=== PATIENT | female | born 1990 | race Caucasian/White ===

== ENCOUNTER → 2016-06-02 | Outpatient (CLI) | payer BC | END | disposition home or self-care (01) | LOC: MW.CHOBGYN 11:53 | PROVIDERS: ATTEND Nurse Practitioner Women's Health | DX: L29.8 Other pruritus (principal); N64.4 Mastodynia | CPT/HCPCS: 36415; 81025; 84146; 84443; 87480; 87510; 87660 ==

== ENCOUNTER → 2016-06-11 | Outpatient (CLI) | payer BC ==
--- NOTE | 2016-06-11 16:37 | US ---
EXAMINATION: Left breast HISTORY: Lump COMPARISON: None TECHNIQUE: Grayscale and color Doppler images obtained of the left breast. FINDINGS: There is no abnormal mass or fluid collection identified. No skin thickening or abnormal c olor Doppler flow. Normal-appearing glandular and adipose tissue noted. IMPRESSION: No sonographic abnormalities identified within the left breast. Please follow-up palpabl e abnormalities clinically.
== END ==
LOC: MW.US 12:30
PROVIDERS: ATTEND Nurse Practitioner Women's Health
DX: N63 Unspecified lump in breast (principal)
CPT/HCPCS: 76641-LT; 76641-LT-26

== ENCOUNTER 2016-08-31 22:09 | Observation (INO) | payer BC ==
[2016-08-31] MEDS ORDERED: Sodium Chloride 0.9% 1,000 ML IV ONE ×2 (22:44→23:42)
[2016-08-31] MEDS ORDERED: Ondansetron 4 MG/2 ML SDV IVPUSH ONE (22:44)
[2016-08-31] MEDS ORDERED: Sodium Chloride 0.9% 10 ML Syringe FLUSH PRN (22:44)
[2016-08-31] MEDS ORDERED: Famotidine 20 MG/2 ML SDV IVPUSH ONE (22:44)
[2016-08-31] MEDS ORDERED: Sodium Chloride 0.9% 2.5 ML Syringe FLUSH PRN (22:44)
[2016-08-31] MEDS ORDERED: Insulin Regular, Human 100 Units/ML 10 ML Vial SUBCUT ONE ×2 (22:44→23:48)
--- NOTE | 2016-08-31 22:47 | EDM.PDOC ---
ED HPI GENERAL MEDICAL PROBLEM - General Chief Complaint: Diabetic Complaint Stated Complaint: HIGH BLOOD SUGAR/SHORT OF BREATH Time Seen by Provider: 08/31/16 22:35 - History of Present Illness INITIAL COMMENTS - FREE TEXT/NARRATIVE: HISTORY AND PHYSICAL: History of present illness: The patient is a 25-year-old female who was had insulin-requiring diabetes since her last child and states that her blood sugar has been very altered and unable to be controlled since end of February this past year. She states that she was on Humalog and was very well controlled and when they switched her to Novolog and she had more problems with blood sugar management. She states her hemoglobin A1c is "12" and her provider is in [place] but she has moved here and has seen Dr. Pineda in our clinic back in January but has not had good follow- up. She says that she has been treating herself with a sliding scale of both the Novolog and the Lantus that she is on and she has no regular doses ; she has had one admission for blood sugar in the 600s and she is currently feeling similarly with lightheadedness headache nausea heartburn but no chest pain and no discrete abdominal pain. She has not passed out or blacked out but feels generalized weakness. She had one episode of vomiting earlier today but is tolerated fluids since that time. She has polyuria and polydipsia but no dysuria or urgency and no flank pain. The patient tells me that the best blood sugar that she has had in the last 6 months is around 300 and it normally runs 300-500 Review of systems: As per history of present illness and below otherwise all systems reviewed and negative. Past medical history: As per history of present illness and as reviewed below otherwise noncontributory. Surgical history: As per history of present illness and as reviewed below otherwise noncontributory. Social history: No reported history of drug or alcohol abuse. Family history: As per history of present illness and as reviewed below otherwise noncontributory. Physical exam: Gen.: Well-developed well-nourished mildly overweight female who is nontoxic and there is no smell of ketones on her breath that I can appreciate. She is nontoxic appearing speaks clearly and easily and is in no overt distress HEENT: Atraumatic, normocephalic, pupils reactive, negative for conjunctival pallor or scleral icterus, mucous membranes tacky, throat clear, neck supple, nontender, trachea midline. Lungs: Clear to auscultation, breath sounds equal bilaterally, chest nontender. Heart: S1S2, regular, negative for clicks, rubs, or JVD. Abdomen: Soft, nondistended, nontender. Negative for masses or hepatosplenomegaly. Negative for costovertebral tenderness. Pelvis: Stable nontender. Genitourinary: Deferred. Rectal: Deferred. Extremities: Atraumatic, negative for cords or calf pain. Neurovascular unremarkable. Neuro: Awake, alert, oriented. Cranial nerves II through XII unremarkable. Cerebellum unremarkable. Motor and sensory unremarkable throughout. Exam nonfocal. Diagnostics: Accu-Chek: CBC CMP serum ketones UA UCG ABG hemoglobin A1c EKG Therapeutics: IV fluid and insulin Zofran Pepcid 2342: Case was discussed with our hospitalist Dr. Carrasco and he accepts the patient for observation admission and would like to manage the patient with regular insulin doses and sliding scale and not an insulin drip at this time. I discussed all testing results with the patient and at bedside and the observation admission and need to get better control of her glucose as well as diabetic teaching and a more standardized insulin dosing regimen. She states understanding and is agreeable . We will give a second liter of IV fluids repeat the Accu-Chek and dose insulin again as indicated. ABG was drawn and is still pending at the time of this phone conversation with the hospitalist. I will follow-up with that result Impression: Hyperglycemia with history of insulin requiring diabetes and poor outpatient medical management Definitive disposition and diagnosis as appropriate pending reevaluation and review of above. 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 ED EXAM GENERAL NO PERIP PULSE - Physical Exam Exam: See Below (See dictation) Course - Vital Signs Last Recorded V/S: Last Vital Signs Temp 36.4 C 08/31/16 22:15 Pulse 83 08/31/16 22:15 Resp 18 08/31/16 22:15 BP 133/80 08/31/16 22:15 Pulse Ox 96 08/31/16 22:15 - Orders/Labs/Meds Orders: Active Orders 24 hr Category Date Time Status Patient Status [ADT] Stat ADT 08/31/16 23:42 Ordered Blood Glucose Check, Bedside [RC] ONETIME Care 08/31/16 23:42 Ordered EKG Documentation Completion [RC] STAT Care 08/31/16 22:47 Active BLOOD GAS ARTERIAL [BG] Stat Lab 08/31/16 22:43 Ordered Sodium Chloride 0.9% [Normal Saline] 1,000 ml Med 08/31/16 22:44 Active IV STAT Sodium Chloride 0.9% [Normal Saline] 1,000 ml Med 08/31/16 23:42 Ordered IV STAT Sodium Chloride 0.9% [Saline Flush] Med 08/31/16 22:44 Active 10 ml FLUSH ASDIRECTED PRN Sodium Chloride 0.9% [Saline Flush] Med 08/31/16 22:44 Active 2.5 ml FLUSH ASDIRECTED PRN Saline Lock Insert [OM.PC] Stat Oth 08/31/16 22:43 Ordered Medication Orders Sodium Chloride (Normal Saline) 1,000 mls @ 999 mls/hr IV STAT ONE Stop: 08/31/16 23:44 Last Admin: 08/31/16 22:53 Dose: 999 mls/hr Sodium Chloride (Normal Saline) 1,000 mls @ 999 mls/hr IV STAT ONE Stop: 09/01/16 00:42 Sodium Chloride (Saline Flush) 10 ml FLUSH ASDIRECTED PRN PRN Reason: Keep Vein Open Last Admin: 08/31/16 22:55 Dose: 10 ml Sodium Chloride (Saline Flush) 2.5 ml FLUSH ASDIRECTED PRN PRN Reason: Keep Vein Open Last Admin: 08/31/16 22:55 Dose: 2.5 ml Labs: Laboratory Tests 08/31/16 08/31/16 08/31/16 Range/Units 22:40 22:40 22:40 WBC 9.19 (4.0-11.0) K/uL RBC 5.25 (4.30-5.90) M/uL Hgb 15.6 (12.0-16.0) g/dL Hct 43.9 (36.0-46.0) % MCV 83.6 (80.0-98.0) fL MCH 29.7 (27.0-32.0) pg MCHC 35.5 (31.0-37.0) g/dL RDW Std Deviation 38.6 (28.0-62.0) fl RDW Coeff of Escobar 13 (11.0-15.0) % Plt Count 307 (150-400) K/uL MPV 9.90 (7.40-12.00) fL Neut % (Auto) 58.4 (48.0-80.0) % Lymph % (Auto) 35.6 (16.0-40.0) % Frederick % (Auto) 4.2 (0.0-15.0) % Eos % (Auto) 1.4 (0.0-7.0) % Baso % (Auto) 0.4 (0.0-1.5) % Neut # (Auto) 5.4 (1.4-5.7) K/uL Lymph # (Auto) 3.3 H (0.6-2.4) K/uL Frederick # (Auto) 0.4 (0.0-0.8) K/uL Eos # (Auto) 0.1 (0.0-0.7) K/uL Baso # (Auto) 0.0 (0.0-0.1) K/uL Nucleated RBC % 0.0 /100WBC Nucleated RBCs # 0 K/uL Sodium 128 L (136-146) mmol/L Potassium 4.2 (3.5-5.1) mmol/L Chloride 102 (98-110) mmol/L Carbon Dioxide 17 L (21-31) mmol/L BUN 18 (6.0-23.0) mg/dL Creatinine 1.1 (0.6-1.5) mg/dL Est Cr Clr Drug Dosing 81.70 mL/min Estimated GFR (MDRD) > 60.0 ml/min Glucose 603 H* (60-110) mg/dL Hemoglobin A1c (0.0-6.0) % Calcium 8.7 L (8.8-10.8) mg/dL Total Bilirubin 0.3 (0.1-1.5) mg/dL AST 14 (5-40) IU/L ALT 24 (8-54) IU/L Alkaline Phosphatase 137 (40-150) Total Protein 7.8 (6.0-8.0) g/dL Albumin 4.4 (3.5-5.0) g/dL Globulin 3.4 (2.0-3.5) g/dL Albumin/Globulin Ratio 1.3 (1.3-2.8) Urine Color Urine Appearance Urine pH (5.0-8.0) Ur Specific Egan (1.001-1.035) Urine Protein (NEGATIVE) mg/dL Urine Glucose (UA) (NEGATIVE) mg/dL Urine Ketones (NEGATIVE) mg/dL Urine Occult Blood (NEGATIVE) Urine Nitrite (NEGATIVE) Urine Bilirubin (NEGATIVE) Urine Urobilinogen (<2.0) EU/dL Ur Leukocyte Esterase (NEGATIVE) Urine RBC (0-2/HPF) Urine WBC (0-5/HPF) Ur Epithelial Cells (NONE-FEW) Urine Bacteria (NEGATIVE) Urine HCG, Qual (NEGATIVE) Ketones NEGATIVE (NEG) 08/31/16 08/31/16 08/31/16 Range/Units 22:40 22:40 22:40 WBC (4.0-11.0) K/uL RBC (4.30-5.90) M/uL Hgb (12.0-16.0) g/dL Hct (36.0-46.0) % MCV (80.0-98.0) fL MCH (27.0-32.0) pg MCHC (31.0-37.0) g/dL RDW Std Deviation (28.0-62.0) fl RDW Coeff of Escobar (11.0-15.0) % Plt Count (150-400) K/uL MPV (7.40-12.00) fL Neut % (Auto) (48.0-80.0) % Lymph % (Auto) (16.0-40.0) % Frederick % (Auto) (0.0-15.0) % Eos % (Auto) (0.0-7.0) % Baso % (Auto) (0.0-1.5) % Neut # (Auto) (1.4-5.7) K/uL Lymph # (Auto) (0.6-2.4) K/uL Frederick # (Auto) (0.0-0.8) K/uL Eos # (Auto) (0.0-0.7) K/uL Baso # (Auto) (0.0-0.1) K/uL Nucleated RBC % /100WBC Nucleated RBCs # K/uL Sodium (136-146) mmol/L Potassium (3.5-5.1) mmol/L Chloride (98-110) mmol/L Carbon Dioxide (21-31) mmol/L BUN (6.0-23.0) mg/dL Creatinine (0.6-1.5) mg/dL Est Cr Clr Drug Dosing mL/min Estimated GFR (MDRD) ml/min Glucose (60-110) mg/dL Hemoglobin A1c 12.0 H (0.0-6.0) % Calcium (8.8-10.8) mg/dL Total Bilirubin (0.1-1.5) mg/dL AST (5-40) IU/L ALT (8-54) IU/L Alkaline Phosphatase (40-150) Total Protein (6.0-8.0) g/dL Albumin (3.5-5.0) g/dL Globulin (2.0-3.5) g/dL Albumin/Globulin Ratio (1.3-2.8) Urine Color YELLOW Urine Appearance CLEAR Urine pH 5.0 (5.0-8.0) Ur Specific Egan 1.010 (1.001-1.035) Urine Protein NEGATIVE (NEGATIVE) mg/dL Urine Glucose (UA) >=1000 (NEGATIVE) mg/dL Urine Ketones 15 H (NEGATIVE) mg/dL Urine Occult Blood SMALL H (NEGATIVE) Urine Nitrite NEGATIVE (NEGATIVE) Urine Bilirubin NEGATIVE (NEGATIVE) Urine Urobilinogen 0.2 (<2.0) EU/dL Ur Leukocyte Esterase SMALL (NEGATIVE) Urine RBC 0-2 (0-2/HPF) Urine WBC 4-6 (0-5/HPF) Ur Epithelial Cells RARE (NONE-FEW) Urine Bacteria RARE (NEGATIVE) Urine HCG, Qual NEGATIVE (NEGATIVE) Ketones (NEG) Meds: Medications Generic Name Dose Route Start Last Admin Trade Name Eligioq PRN Reason Stop Dose Admin Sodium Chloride 1,000 mls @ 999 mls/hr 08/31/16 22:44 08/31/16 22:53 Normal Saline IV 08/31/16 23:44 999 mls/hr STAT ONE Administration Sodium Chloride 1,000 mls @ 999 mls/hr 08/31/16 23:42 Normal Saline IV 09/01/16 00:42 STAT ONE Sodium Chloride 10 ml 08/31/16 22:44 08/31/16 22:55 Saline Flush FLUSH 10 ml ASDIRECTED PRN Administration Keep Vein Open Sodium Chloride 2.5 ml 08/31/16 22:44 08/31/16 22:55 Saline Flush FLUSH 2.5 ml ASDIRECTED PRN Administration Keep Vein Open Discontinued Medications Generic Name Dose Route Start Last Admin Trade Name Freq PRN Reason Stop Dose Admin Famotidine 20 mg 08/31/16 22:44 08/31/16 22:55 Pepcid IVPUSH 08/31/16 22:45 20 mg ONETIME ONE Administration Insulin Human Regular 15 unit 08/31/16 22:44 08/31/16 22:57 Novolin R SUBCUT 08/31/16 22:45 15 units ONETIME ONE Administration Protocol Ondansetron HCl 4 mg 08/31/16 22:44 08/31/16 22:54 Zofran IVPUSH 08/31/16 22:45 4 mg ONETIME ONE Administration Departure - Departure Time of Disposition: 23:45 Disposition: Refer to Observation Condition: Good Clinical Impression: Hyperglycemia - Discharge Information Forms: ED Department Discharge - My Orders Last 24 Hours: My Active Orders 08/31/16 22:43 BLOOD GAS ARTERIAL [BG] Stat Saline Lock Insert [OM.PC] Stat 08/31/16 22:44 Sodium Chloride 0.9% [Normal Saline] 1,000 ml IV STAT Sodium Chloride 0.9% [Saline Flush] 10 ml FLUSH ASDIRECTED PRN Sodium Chloride 0.9% [Saline Flush] 2.5 ml FLUSH ASDIRECTED PRN 08/31/16 22:47 EKG Documentation Completion [RC] STAT 08/31/16 23:42 Patient Status [ADT] Stat Blood Glucose Check, Bedside [RC] ONETIME Sodium Chloride 0.9% [Normal Saline] 1,000 ml IV STAT - Assessment/Plan Last 24 Hours: My Active Orders 08/31/16 22:43 BLOOD GAS ARTERIAL [BG] Stat Saline Lock Insert [OM.PC] Stat 08/31/16 22:44 Sodium Chloride 0.9% [Normal Saline] 1,000 ml IV STAT Sodium Chloride 0.9% [Saline Flush] 10 ml FLUSH ASDIRECTED PRN Sodium Chloride 0.9% [Saline Flush] 2.5 ml FLUSH ASDIRECTED PRN 08/31/16 22:47 EKG Documentation Completion [RC] STAT 08/31/16 23:42 Patient Status [ADT] Stat Blood Glucose Check, Bedside [RC] ONETIME Sodium Chloride 0.9% [Normal Saline] 1,000 ml IV STAT
[2016-08-31 23:02] LABS: CHLORIDE,CL 102 mmol/L (98-110); SODIUM,NA 128 mmol/L (136-146)
[2016-09-01] MEDS ORDERED: Insulin Regular, Human 100 Units/ML 10 ML Vial IVPUSH ONE (01:10)
[2016-09-01] MEDS ORDERED: Insulin Regular, Human 100 Units/ML 10 ML Vial SUBCUT ONE (01:11)
[2016-09-01] MEDS: Sodium Chloride 0.9% 1,000 ML IV SCH ×3 (01:27→17:38)
[2016-09-01 02:35] LABS: CHLORIDE,CL 110 mmol/L (98-110); SODIUM,NA 132 mmol/L (136-146)
[2016-09-01] MEDS: Insulin Aspart 100 Units/ML 3 ML Pen SUBCUT SCH ×8 (04:22→16:54)
[2016-09-01] MEDS ORDERED: Insulin Glargine,Human Rec. Analog 100 Units/ML 3 ML Pen SUBCUT SCH ×2 (07:30→18:00)
[2016-09-01 07:58] LABS: CHLORIDE,CL 113 mmol/L (98-110); SODIUM,NA 139 mmol/L (136-146)
--- NOTE | 2016-09-01 08:53 | PCM.HP ---
H&P History of Present Illness - General Admit Problem/Dx: Admission Diagnosis/Problem Admission Diagnosis/Problem Hyperglycemia - History of Present Illness Initial Comments - Free Text/Narative: 25 yo female with pmh of diabetes. She reports for the past two months difficulty controlling her blood sugars. She said she had been doing well with blood sugars ranging 100-120s and HgA1c of 6.2 last January. Her regiment has been 25 units of lantus in the morning and sliding scale insulin based on post meal blood sugar. This past month her blood sugars have been in the 200s-400s and she has difficulty decreasing them with 10 to 15 units of insulin at a time. When she developed nausea, vomiting, polydypsea and polyuria she presented to the ED. She was found to have blood sugars of 603 and bicarb of 17. She received 15 units of insulin and IV fluids in the ER with resolution of her symptoms. 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, Polycystic Ovaries , Endocrine/Metabolic History: Reports: Diabetes, Type I - Infectious Disease History Infectious Disease History: Reports: Chicken Pox - Past Surgical History Female Surgical History: Reports: Tubal Ligation Endocrine Surgical History: Reports: None Social & Family History - Family History OBGYN: Reports: Endocrine/Metabolic: Reports: Diabetes, Type I - Tobacco Use Smoking Status *Q: Never Smoker Second Hand Smoke Exposure: No - Caffeine Use Caffeine Use: Reports: None - Recreational Drug Use Recreational Drug Use: No H&P Review of Systems - Review of Systems: Review Of Systems: See Below General: Reports: No Symptoms HEENT: Reports: No Symptoms Pulmonary: Reports: No Symptoms Cardiovascular: Reports: No Symptoms Gastrointestinal: Reports: No Symptoms Genitourinary: Reports: No Symptoms Musculoskeletal: Reports: No Symptoms Skin: Reports: No Symptoms Psychiatric: Reports: No Symptoms Neurological: Reports: No Symptoms Hematologic/Lymphatic: Reports: No Symptoms Immunologic: Reports: No Symptoms Exam - Exam Exam: See Below - Vital Signs Vital Signs: Last Vital Signs Temp 36.7 C 09/01/16 04:00 Pulse 80 09/01/16 04:00 Resp 18 09/01/16 04:00 BP 124/56 L 09/01/16 04:00 Pulse Ox 97 09/01/16 04:00 Weight: 117.6 kg - Exam General: Alert, Oriented, 4 HEENT: Mucosa Moist & [place] Neck: No: JVD Lungs: Clear to Auscultation, Normal Respiratory Effort Cardiovascular: Regular Rate, Regular Rhythm Abdomen: Normal Bowel Sounds, Soft Extremities: Normal Inspection Skin: Warm, Dry, Intact Neurological: No: Focal Deficit - Patient Data Lab Results Last 24 hrs: Laboratory Results - last 24 hr 08/31/16 09/01/16 09/01/16 Range/Units 23:46 00:38 02:05 Sodium 132 L (136-146) mmol/L Potassium 3.7 (3.5-5.1) mmol/L Chloride 110 (98-110) mmol/L Carbon Dioxide 15 L (21-31) mmol/L BUN 14 (6.0-23.0) mg/dL Creatinine 0.8 (0.6-1.5) mg/dL Est Cr Clr Drug Dosing 111.94 mL/min Estimated GFR (MDRD) > 60.0 ml/min Glucose 392 H (60-110) mg/dL POC Glucose 435 H 409 H (60-110) mg/dL Calcium 8.0 L (8.8-10.8) mg/dL 09/01/16 09/01/16 Range/Units 04:17 07:23 Sodium 139 (136-146) mmol/L Potassium 3.5 (3.5-5.1) mmol/L Chloride 113 H (98-110) mmol/L Carbon Dioxide 17 L (21-31) mmol/L BUN 11 (6.0-23.0) mg/dL Creatinine 0.7 (0.6-1.5) mg/dL Est Cr Clr Drug Dosing 127.93 mL/min Estimated GFR (MDRD) > 60.0 ml/min Glucose 104 (60-110) mg/dL POC Glucose 158 H (60-110) mg/dL Calcium 8.4 L (8.8-10.8) mg/dL Result Diagrams: 09/02/16 04:08 09/02/16 04:08 *Q Meaningful Use (ADM) - VTE *Q VTE Criteria *Q: - Stroke *Q Stroke Criteria *Q: - AMI *Q AMI Criteria *Q: Problem List Initiated/Reviewed/Updated: Yes Orders Last 24hrs: Active Orders 24 hr Category Date Time Status Antiembolic Devices [RC] PER UNIT ROUTINE Care 09/01/16 08:45 Active Blood Glucose Check, Bedside [RC] Q3H Care 09/01/16 04:00 Active Intake and Output [RC] QSHIFT Care 09/01/16 08:45 Active Oxygen Therapy [RC] PRN Care 09/01/16 08:45 Active Up ad Lisa [RC] ASDIRECTED Care 09/01/16 08:44 Active VTE/DVT Education [RC] PER UNIT ROUTINE Care 09/01/16 08:45 Active Vital Signs [RC] Q4H Care 09/01/16 08:45 Active Consult to Diabetic Nurse Specialist [CONS] Routine Cons 09/01/16 08:23 Active [place] [employer] Diet [DIET] Diet 09/01/16 Breakfast Active BASIC METABOLIC PANEL,BMP [CHEM] Routine Lab 09/01/16 17:00 Ordered CBC WITH AUTO DIFF [HEME] AM Lab 09/02/16 05:11 Ordered Insulin Aspart [NovoLOG] Med 09/01/16 07:30 Active 5 unit SUBCUT TIDAC Insulin Aspart [NovoLOG] Med 09/01/16 07:30 Active See Protocol SUBCUT TIDAC Insulin Glarg,Human.Rec.Analog [LantUS Solostar] Med 09/01/16 07:30 Active 25 units SUBCUT Q24H Sodium Chloride 0.9% [Normal Saline] 1,000 ml Med 09/01/16 01:30 Active IV ASDIRECTED Sequential Compression Device [OM.PC] Per Unit Routine Oth 09/01/16 08:45 Ordered Resuscitation Status Routine Resus Stat 09/01/16 08:44 Ordered Medication Orders Sodium Chloride (Normal Saline) 1,000 mls @ 125 mls/hr IV ASDIRECTED CLEOPATRA Last Admin: 09/01/16 01:27 Dose: 125 mls/hr Insulin Aspart (Novolog) 5 unit SUBCUT TIDAC CLEOPATRA Last Admin: 09/01/16 07:43 Dose: 5 unit Insulin Aspart (Novolog) 0 unit SUBCUT TIDAC CLEOPATRA PRN Reason: Protocol Last Admin: 09/01/16 07:44 Dose: Not Given Insulin Glargine (Lantus Solostar) 25 units SUBCUT Q24H [facility] Last Admin: 09/01/16 07:42 Dose: 25 unit Sodium Chloride (Saline Flush) 10 ml FLUSH ASDIRECTED PRN PRN Reason: Keep Vein Open Last Admin: 08/31/16 22:55 Dose: 10 ml Sodium Chloride (Saline Flush) 2.5 ml FLUSH ASDIRECTED PRN PRN Reason: Keep Vein Open Last Admin: 08/31/16 22:55 Dose: 2.5 ml Assessment/Plan Comment:: 25 yo female admitted for hyperglycemia and dehydration. Serum ketones negative but bicarb is low so may be slight ketotic without significant anion gap. She is improving with IV fluids and subcutaneous insulin. HgA1c is 12. We will consult lead technical architect.
[2016-09-01 17:46] LABS: CHLORIDE,CL 108 mmol/L (98-110); SODIUM,NA 135 mmol/L (136-146)
[2016-09-01] MEDS ORDERED: Insulin Aspart 100 Units/ML 3 ML Pen SUBCUT ONE (21:37)
[2016-09-02] MEDS: Sodium Chloride 0.9% 1,000 ML IV SCH ×2 (01:38→09:35)
[2016-09-02 05:15] LABS: CHLORIDE,CL 109 mmol/L (98-110); SODIUM,NA 138 mmol/L (136-146)
[2016-09-02] MEDS ORDERED: Insulin Glargine,Human Rec. Analog 100 Units/ML 3 ML Pen SUBCUT SCH (07:30)
[2016-09-02] MEDS: Insulin Aspart 100 Units/ML 3 ML Pen SUBCUT SCH ×4 (07:56→11:58)
[2016-09-02 11:54] VITALS: BP 117/63
--- NOTE | 2016-09-02 12:49 | PCM.DCSUM1 ---
Discharge Summary - Discharge Data Discharge Date: 09/02/16 Discharge Disposition: Home, Self-Care 01 Condition: Good - Patient Summary/Data Consults: Consultations 09/01/16 08:23 Consult to Diabetic Nurse Specialist [CONS] Routine Hospital Course: 25 yo female with pmh of diabetes. She reports for the past two months difficulty controlling her blood sugars. Last yeasr she was doing well with blood sugars ranging 100-120s and HgA1c of 6.2 last January. This past month her blood sugars have been in the 200s-400s and she has difficulty decreasing them with 10 to 15 units of insulin at a time. Her regiment has been 25 units of lantus in the morning and guessing with out a standard protocol the amount of fast acting insulin during the day. When she developed nausea, vomiting, polydypsea and polyuria she presented to the ED. She was found to have blood sugars of 603, negative serum ketones and bicarb of 17. She was admitted for dehydration and hyperglycemia. She was treated with subcutaneous insulin and IV fluids. She was monitored for a day and her blood sugars ranged from 100s- 200s. Her nausea and vomiting resolved. elementary educator was consulted and will follow up with her at discharge this week. She is to have a follow up appointment with Dr. Pineda. - Discharge Plan Home Medications: Home Meds Insulin Aspart [Novolog Flexpen] 0 unit SQ TIDAC 08/31/16 [History] Insulin Glarg,Human.Rec.Analog [LantUS Solostar] 30 units SUBCUT DAILY #0 09/02 [Rx] Referrals: Matti Pineda DO [Primary Care Provider] - - Patient Data Vitals - Most Recent: Last Vital Signs Temp 36.4 C 09/02/16 11:53 Pulse 76 09/02/16 11:53 Resp 16 09/02/16 11:53 BP 117/63 09/02/16 11:53 Pulse Ox 97 09/02/16 11:53 Weight - Most Recent: 117.6 kg I&O - Last 24 hours: Intake & Output 09/01/16 09/02/16 09/02/16 22:59 06:59 14:59 Intake Total 1499 1890 1000 Output Total 1500 1700 Balance -1 190 1000 Lab Results - Last 24 hrs: Laboratory Results - last 24 hr 09/01/16 09/01/16 09/02/16 Range/Units 17:12 21:05 03:13 WBC (4.0-11.0) K/uL RBC (4.30-5.90) M/uL Hgb (12.0-16.0) g/dL Hct (36.0-46.0) % MCV (80.0-98.0) fL MCH (27.0-32.0) pg MCHC (31.0-37.0) g/dL RDW Std Deviation (28.0-62.0) fl RDW Coeff of Escobar (11.0-15.0) % Plt Count (150-400) K/uL MPV (7.40-12.00) fL Neut % (Auto) (48.0-80.0) % Lymph % (Auto) (16.0-40.0) % Owsley % (Auto) (0.0-15.0) % Eos % (Auto) (0.0-7.0) % Baso % (Auto) (0.0-1.5) % Neut # (Auto) (1.4-5.7) K/uL Lymph # (Auto) (0.6-2.4) K/uL Owsley # (Auto) (0.0-0.8) K/uL Eos # (Auto) (0.0-0.7) K/uL Baso # (Auto) (0.0-0.1) K/uL Nucleated RBC % /100WBC Nucleated RBCs # K/uL Sodium 135 L (136-146) mmol/L Potassium 3.8 (3.5-5.1) mmol/L Chloride 108 (98-110) mmol/L Carbon Dioxide 16 L (21-31) mmol/L BUN 11 (6.0-23.0) mg/dL Creatinine 0.8 (0.6-1.5) mg/dL Est Cr Clr Drug Dosing 111.94 mL/min Estimated GFR (MDRD) > 60.0 ml/min Glucose 278 H (60-110) mg/dL POC Glucose 274 H 213 H (60-110) mg/dL Calcium 8.8 (8.8-10.8) mg/dL 06/15/17 06/15/17 06/15/17 Range/Units 04:08 04:08 06:38 WBC 7.76 (4.0-11.0) K/uL RBC 4.82 (4.30-5.90) M/uL Hgb 13.9 (12.0-16.0) g/dL Hct 40.8 (36.0-46.0) % MCV 84.6 (80.0-98.0) fL MCH 28.8 (27.0-32.0) pg MCHC 34.1 (31.0-37.0) g/dL RDW Std Deviation 39.3 (28.0-62.0) fl RDW Coeff of Escobar 13 (11.0-15.0) % Plt Count 282 (150-400) K/uL MPV 10.00 (7.40-12.00) fL Neut % (Auto) 46.5 L (48.0-80.0) % Lymph % (Auto) 45.1 H (16.0-40.0) % Owsley % (Auto) 6.1 (0.0-15.0) % Eos % (Auto) 1.8 (0.0-7.0) % Baso % (Auto) 0.5 (0.0-1.5) % Neut # (Auto) 3.6 (1.4-5.7) K/uL Lymph # (Auto) 3.5 H (0.6-2.4) K/uL Owsley # (Auto) 0.5 (0.0-0.8) K/uL Eos # (Auto) 0.1 (0.0-0.7) K/uL Baso # (Auto) 0.0 (0.0-0.1) K/uL Nucleated RBC % 0.0 /100WBC Nucleated RBCs # 0 K/uL Sodium 138 (136-146) mmol/L Potassium 3.7 (3.5-5.1) mmol/L Chloride 109 (98-110) mmol/L Carbon Dioxide 20 L (21-31) mmol/L BUN 7 (6.0-23.0) mg/dL Creatinine 0.7 (0.6-1.5) mg/dL Est Cr Clr Drug Dosing 127.93 mL/min Estimated GFR (MDRD) > 60.0 ml/min Glucose 208 H (60-110) mg/dL POC Glucose 212 H (60-110) mg/dL Calcium 8.4 L (8.8-10.8) mg/dL Med Orders - Current: Current Medications Sodium Chloride (Normal Saline) 1,000 mls @ 125 mls/hr IV ASDIRECTED [facility] Last Admin: 09/02/16 09:35 Dose: 125 mls/hr Insulin Aspart (Novolog) 0 unit SUBCUT TIDAC [facility] PRN Reason: Protocol Last Admin: 09/02/16 11:58 Dose: 6 units Insulin Aspart (Novolog) 10 unit SUBCUT TIDAC [facility] Last Admin: 09/02/16 11:57 Dose: 10 units Insulin Glargine (Lantus Solostar) 30 units SUBCUT Q24H [facility] Last Admin: 09/02/16 08:00 Dose: 30 units Sodium Chloride (Saline Flush) 10 ml FLUSH ASDIRECTED PRN PRN Reason: Keep Vein Open Last Admin: 08/31/16 22:55 Dose: 10 ml Sodium Chloride (Saline Flush) 2.5 ml FLUSH ASDIRECTED PRN PRN Reason: Keep Vein Open Last Admin: 08/31/16 22:55 Dose: 2.5 ml Discontinued Medications Famotidine (Pepcid) 20 mg IVPUSH ONETIME ONE Stop: 08/31/16 22:45 Last Admin: 08/31/16 22:55 Dose: 20 mg Sodium Chloride (Normal Saline) 1,000 mls @ 999 mls/hr IV STAT ONE Stop: 08/31/16 23:44 Last Admin: 08/31/16 22:53 Dose: 999 mls/hr Sodium Chloride (Normal Saline) 1,000 mls @ 999 mls/hr IV STAT ONE Stop: 09/01/16 00:42 Last Admin: 08/31/16 23:47 Dose: 999 mls/hr Insulin Aspart (Novolog) 0 unit SUBCUT Q3H [facility] PRN Reason: Protocol Last Admin: 09/01/16 08:12 Dose: Not Given Insulin Aspart (Novolog) 5 unit SUBCUT TIDAC [facility] Last Admin: 09/01/16 16:53 Dose: 5 unit Insulin Aspart (Novolog) 0 unit SUBCUT ONETIME ONE Stop: 09/01/16 21:38 Last Admin: 09/01/16 21:47 Dose: 10 units Insulin Glargine (Lantus Solostar) 25 units SUBCUT Q24H [facility] Last Admin: 09/01/16 07:42 Dose: 25 unit Insulin Glargine (Lantus Solostar) 30 units SUBCUT Q24H [facility] Last Admin: 09/01/16 19:21 Dose: Not Given Insulin Human Regular (Novolin R) 15 unit SUBCUT ONETIME ONE PRN Reason: Protocol Stop: 08/31/16 22:45 Last Admin: 08/31/16 22:57 Dose: 15 units Insulin Human Regular (Novolin R) 15 unit SUBCUT ONETIME ONE PRN Reason: Protocol Stop: 08/31/16 23:49 Last Admin: 09/01/16 00:01 Dose: 15 units Insulin Human Regular (Novolin R) 15 unit SUBCUT ONETIME ONE PRN Reason: Protocol Stop: 09/01/16 01:12 Last Admin: 09/01/16 01:25 Dose: 15 units Ondansetron HCl (Zofran) 4 mg IVPUSH ONETIME ONE Stop: 08/31/16 22:45 Last Admin: 08/31/16 22:54 Dose: 4 mg *Q Meaningful Use (DIS) - VTE *Q VTE Criteria *Q: - Stroke *Q Stroke Criteria *Q: - AMI *Q AMI Criteria *Q:
== END 2016-09-02 14:20 | disposition home or self-care (01) ==
LOC: MW.ED 22:09 → MW.MS 23:42
PROVIDERS: ADMIT Internal Medicine; ATTEND Internal Medicine
DX: E10.65 Type 1 diabetes mellitus with hyperglycemia (principal); E86.0 Dehydration; Z88.8 Allergy status to other drugs, medicaments and biological substances; Z79.4 Long term (current) use of insulin; Z98.51 Tubal ligation status
CPT/HCPCS: 36415; 36600; 80048; 80053; 81001; 81025; 82009; 82803; 82962; 83036; 85025; 93005; 96361; 96374; 96375; 96376; 99285; G0378; J1815; J2405; J7040

== ENCOUNTER 2016-12-28 06:10 | Day surgery (SDC) | payer BC ==
[2016-12-28] MEDS ORDERED: Sodium Chloride 0.9% 1,000 ML IV ONE (06:22)
[2016-12-28] MEDS ORDERED: Ketorolac 30 MG/ML SDV IVPUSH ONE (06:23)
[2016-12-28] MEDS ORDERED: Ondansetron 4 MG/2 ML SDV IVPUSH ONE (06:23)
--- NOTE | 2016-12-28 06:50 | EDM.PDOC ---
<Danny Smith - Last Filed: 12/28/16 06:54> ED HPI GENERAL MEDICAL PROBLEM - General Chief Complaint: Flank Pain Stated Complaint: RIGHT SIDE PAIN Time Seen by Provider: 12/28/16 06:39 Source of Information: Reports: Patient History Limitations: Reports: No Limitations - History of Present Illness INITIAL COMMENTS - FREE TEXT/NARRATIVE: HISTORY AND PHYSICAL: History of present illness: [26-year-old female with a history of morbid obesity, type 2 diabetes, polycystic ovarian syndrome, now presents to the emergency department complaining of right upper quadrant and right flank pain waxing and waning for 3 days. Initially pain was gradual onset and was mild. The pain is now becoming more significant. She came to the emergency department because now she is constantly uncomfortable with nausea but no vomiting. Denies fevers chills sweats or shaking chills. Patient does perceive that her pain is worse when she urinates. She has her tubes tied and denies the possibility of . No history of gallbladder problems/ kidney stone/ or recurrent urinary tract infection. Patient does not have chronic back pain. She does describe that the pain is worse with deep inspiration and with movement. Other than her polycystic ovarian syndrome she has never had any chronic abdominal or pelvic problems and she has never had an abdominal surgery either. Review of systems: As per history of present illness and below otherwise all systems reviewed and negative. Past medical history: As per history of present illness and as reviewed below otherwise noncontributory. Surgical history: As per history of present illness and as reviewed below otherwise noncontributory. Social history: No reported history of drug or alcohol abuse. Family history: As per history of present illness and as reviewed below otherwise noncontributory. Physical exam: 26-year-old female morbidly obese who appears in mild discomfort from her right-sided pain. Clear lungs regular rhythm no tachycardia positive right CVA tenderness with right upper quadrant tenderness and a positive Morgan' s sign. No guarding or rebound no mass or megaly normal bowel sounds nontender McBurney's point and remainder of abdomen is benign. normal extremities HEENT: Atraumatic, normocephalic, pupils reactive, negative for conjunctival pallor or scleral icterus, mucous membranes moist, throat clear, neck supple, nontender, trachea midline. Lungs: Clear to auscultation, breath sounds equal bilaterally, chest nontender. Heart: S1S2, regular, negative for clicks, rubs, or JVD. Abdomen: Soft, nondistended, abdominal exam as above. Negative for masses or hepatosplenomegaly. Positive Right CVA tenderness, Negative for left costovertebral tenderness. Pelvis: Stable nontender. Genitourinary: Deferred. Rectal: Deferred. Extremities: Atraumatic, negative for cords or calf pain. Neurovascular unremarkable. Neuro: Awake, alert, oriented. Cranial nerves grossly unremarkable. Cerebellum unremarkable. Motor and sensory unremarkable throughout. Exam nonfocal. Diagnostics: [Full laboratory workup pending] Therapeutics: [IV fluids initiated, Toradol and Zofran administered] Impression: [] Plan: [Obese 26-year-old female with a history of type 2 diabetes now with signs and symptoms consistent with suspected gallbladder disease versus pyelonephritis or ureterolithiasis with colic.] She endorses flank and right upper quadrant pain and exam does not provide complete clarity regarding etiology. Hydration, analgesic, an antiemetic administered. Will follow laboratory workup and correlate with clinical reevaluation for decision regarding imaging for definitive diagnosis. Patient hemodynamically stable. Abdomen [address] Mera Wilson to assume care, follow labs, orchestrate further studies as needed, and disposition patient. Definitive disposition and diagnosis as appropriate pending reevaluation and review of above. 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: 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, 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, Polycystic Ovaries , Endocrine/Metabolic History: Reports: Diabetes, Type II - Infectious Disease History Infectious Disease History: Reports: Chicken Pox - Past Surgical History Female Surgical History: Reports: Tubal Ligation Endocrine Surgical History: Reports: None Social & Family History - Family History Family Medical History: Noncontributory OBGYN: Reports: Endocrine/Metabolic: Reports: Diabetes, Type I - Tobacco Use Smoking Status *Q: Never Smoker Second Hand Smoke Exposure: No - Caffeine Use Caffeine Use: Reports: None - Recreational Drug Use Recreational Drug Use: No ED ROS GENERAL - Review of Systems Review Of Systems: See Below (History of present illness) ED EXAM, GI/ABD - Physical Exam Exam: See Below (History of present illness) Course - Vital Signs Last Recorded V/S: Last Vital Signs Temp 36.1 C 12/28/16 06:10 Pulse 78 12/28/16 06:10 Resp 18 12/28/16 06:10 BP 120/88 12/28/16 06:10 Pulse Ox 97 12/28/16 06:10 - Orders/Labs/Meds Orders: Active Orders 24 hr Category Date Time Status Patient Status [ADT] Stat ADT 12/28/16 10:02 Active Blood Glucose Check, Bedside [RC] ONETIME Care 12/28/16 08:48 Active Abdomen Pelvis w Cont [CT] Stat Exams 12/28/16 07:27 Ordered Labs: Laboratory Tests 12/28/16 12/28/16 12/28/16 Range/Units 06:16 06:16 06:16 WBC 8.51 (4.0-11.0) K/uL RBC 4.95 (4.30-5.90) M/uL Hgb 15.0 (12.0-16.0) g/dL Hct 42.1 (36.0-46.0) % MCV 85.1 (80.0-98.0) fL MCH 30.3 (27.0-32.0) pg MCHC 35.6 (31.0-37.0) g/dL RDW Std Deviation 38.9 (28.0-62.0) fl RDW Coeff of Escobar 13 (11.0-15.0) % Plt Count 294 (150-400) K/uL MPV 9.60 (7.40-12.00) fL Neut % (Auto) 46.8 L (48.0-80.0) % Lymph % (Auto) 44.9 H (16.0-40.0) % Dickey % (Auto) 5.9 (0.0-15.0) % Eos % (Auto) 1.6 (0.0-7.0) % Baso % (Auto) 0.8 (0.0-1.5) % Neut # (Auto) 4.0 (1.4-5.7) K/uL Lymph # (Auto) 3.8 H (0.6-2.4) K/uL Dickey # (Auto) 0.5 (0.0-0.8) K/uL Eos # (Auto) 0.1 (0.0-0.7) K/uL Baso # (Auto) 0.1 (0.0-0.1) K/uL Nucleated RBC % 0.0 /100WBC Nucleated RBCs # 0 K/uL Sodium 136 (136-146) mmol/L Potassium 4.1 (3.5-5.1) mmol/L Chloride 104 (98-110) mmol/L Carbon Dioxide 22 (21-31) mmol/L BUN 15 (6.0-23.0) mg/dL Creatinine 0.8 (0.6-1.5) mg/dL Est Cr Clr Drug Dosing 110.97 mL/min Estimated GFR (MDRD) > 60.0 ml/min Glucose 304 H (60-110) mg/dL POC Glucose (60-110) mg/dL Calcium 9.4 (8.8-10.8) mg/dL Total Bilirubin 0.5 (0.1-1.5) mg/dL AST 17 (5-40) IU/L ALT 46 (8-54) IU/L Alkaline Phosphatase 128 (40-150) Total Protein 7.9 (6.0-8.0) g/dL Albumin 4.3 (3.5-5.0) g/dL Globulin 3.6 H (2.0-3.5) g/dL Albumin/Globulin Ratio 1.2 L (1.3-2.8) Lipase (7-80) U/L Urine Color Urine Appearance Urine pH (5.0-8.0) Ur Specific Alden (1.001-1.035) Urine Protein (NEGATIVE) mg/dL Urine Glucose (UA) (NEGATIVE) mg/dL Urine Ketones (NEGATIVE) mg/dL Urine Occult Blood (NEGATIVE) Urine Nitrite (NEGATIVE) Urine Bilirubin (NEGATIVE) Urine Urobilinogen (<2.0) EU/dL Ur Leukocyte Esterase (NEGATIVE) Urine RBC (0-2/HPF) Urine WBC (0-5/HPF) Ur Epithelial Cells (NONE-FEW) Urine Bacteria (NEGATIVE) Urine HCG, Qual NEGATIVE (NEGATIVE) 12/28/16 12/28/16 12/28/16 Range/Units 06:16 06:16 06:18 WBC (4.0-11.0) K/uL RBC (4.30-5.90) M/uL Hgb (12.0-16.0) g/dL Hct (36.0-46.0) % MCV (80.0-98.0) fL MCH (27.0-32.0) pg MCHC (31.0-37.0) g/dL RDW Std Deviation (28.0-62.0) fl RDW Coeff of Escobar (11.0-15.0) % Plt Count (150-400) K/uL MPV (7.40-12.00) fL Neut % (Auto) (48.0-80.0) % Lymph % (Auto) (16.0-40.0) % Dickey % (Auto) (0.0-15.0) % Eos % (Auto) (0.0-7.0) % Baso % (Auto) (0.0-1.5) % Neut # (Auto) (1.4-5.7) K/uL Lymph # (Auto) (0.6-2.4) K/uL Dickey # (Auto) (0.0-0.8) K/uL Eos # (Auto) (0.0-0.7) K/uL Baso # (Auto) (0.0-0.1) K/uL Nucleated RBC % /100WBC Nucleated RBCs # K/uL Sodium (136-146) mmol/L Potassium (3.5-5.1) mmol/L Chloride (98-110) mmol/L Carbon Dioxide (21-31) mmol/L BUN (6.0-23.0) mg/dL Creatinine (0.6-1.5) mg/dL Est Cr Clr Drug Dosing mL/min Estimated GFR (MDRD) ml/min Glucose (60-110) mg/dL POC Glucose 250 H (60-110) mg/dL Calcium (8.8-10.8) mg/dL Total Bilirubin (0.1-1.5) mg/dL AST (5-40) IU/L ALT (8-54) IU/L Alkaline Phosphatase (40-150) Total Protein (6.0-8.0) g/dL Albumin (3.5-5.0) g/dL Globulin (2.0-3.5) g/dL Albumin/Globulin Ratio (1.3-2.8) Lipase 46 (7-80) U/L Urine Color YELLOW Urine Appearance CLEAR Urine pH 5.5 (5.0-8.0) Ur Specific Alden 1.025 (1.001-1.035) Urine Protein NEGATIVE (NEGATIVE) mg/dL Urine Glucose (UA) >=1000 (NEGATIVE) mg/dL Urine Ketones NEGATIVE (NEGATIVE) mg/dL Urine Occult Blood NEGATIVE (NEGATIVE) Urine Nitrite NEGATIVE (NEGATIVE) Urine Bilirubin NEGATIVE (NEGATIVE) Urine Urobilinogen 0.2 (<2.0) EU/dL Ur Leukocyte Esterase NEGATIVE (NEGATIVE) Urine RBC 0-2 (0-2/HPF) Urine WBC 0-1 (0-5/HPF) Ur Epithelial Cells FEW (NONE-FEW) Urine Bacteria FEW (NEGATIVE) Urine HCG, Qual (NEGATIVE) 12/28/16 Range/Units 08:51 WBC (4.0-11.0) K/uL RBC (4.30-5.90) M/uL Hgb (12.0-16.0) g/dL Hct (36.0-46.0) % MCV (80.0-98.0) fL MCH (27.0-32.0) pg MCHC (31.0-37.0) g/dL RDW Std Deviation (28.0-62.0) fl RDW Coeff of Escobar (11.0-15.0) % Plt Count (150-400) K/uL MPV (7.40-12.00) fL Neut % (Auto) (48.0-80.0) % Lymph % (Auto) (16.0-40.0) % Dickey % (Auto) (0.0-15.0) % Eos % (Auto) (0.0-7.0) % Baso % (Auto) (0.0-1.5) % Neut # (Auto) (1.4-5.7) K/uL Lymph # (Auto) (0.6-2.4) K/uL Dickey # (Auto) (0.0-0.8) K/uL Eos # (Auto) (0.0-0.7) K/uL Baso # (Auto) (0.0-0.1) K/uL Nucleated RBC % /100WBC Nucleated RBCs # K/uL Sodium (136-146) mmol/L Potassium (3.5-5.1) mmol/L Chloride (98-110) mmol/L Carbon Dioxide (21-31) mmol/L BUN (6.0-23.0) mg/dL Creatinine (0.6-1.5) mg/dL Est Cr Clr Drug Dosing mL/min Estimated GFR (MDRD) ml/min Glucose (60-110) mg/dL POC Glucose 237 H (60-110) mg/dL Calcium (8.8-10.8) mg/dL Total Bilirubin (0.1-1.5) mg/dL AST (5-40) IU/L ALT (8-54) IU/L Alkaline Phosphatase (40-150) Total Protein (6.0-8.0) g/dL Albumin (3.5-5.0) g/dL Globulin (2.0-3.5) g/dL Albumin/Globulin Ratio (1.3-2.8) Lipase (7-80) U/L Urine Color Urine Appearance Urine pH (5.0-8.0) Ur Specific Alden (1.001-1.035) Urine Protein (NEGATIVE) mg/dL Urine Glucose (UA) (NEGATIVE) mg/dL Urine Ketones (NEGATIVE) mg/dL Urine Occult Blood (NEGATIVE) Urine Nitrite (NEGATIVE) Urine Bilirubin (NEGATIVE) Urine Urobilinogen (<2.0) EU/dL Ur Leukocyte Esterase (NEGATIVE) Urine RBC (0-2/HPF) Urine WBC (0-5/HPF) Ur Epithelial Cells (NONE-FEW) Urine Bacteria (NEGATIVE) Urine HCG, Qual (NEGATIVE) Meds: Medications Discontinued Medications Generic Name Dose Route Start Last Admin Trade Name Freq PRN Reason Stop Dose Admin Hydromorphone HCl 0.5 mg 12/28/16 06:56 12/28/16 07:05 Dilaudid IVPUSH 12/28/16 06:57 0.5 mg ONETIME ONE Administration Sodium Chloride 1,000 mls @ 999 mls/hr 12/28/16 06:22 12/28/16 06:31 Normal Saline IV 12/28/16 07:22 999 mls/hr .Bolus ONE Administration Insulin Human Regular 15 unit 12/28/16 07:26 12/28/16 07:34 Novolin R SUBCUT 12/28/16 07:27 15 units ONETIME ONE Administration Protocol Iopamidol 100 ml 12/28/16 07:30 12/28/16 07:31 Isovue Multipack-370 (76%) IVPUSH 12/28/16 07:31 100 ml ONETIME STA Administration Ketorolac Tromethamine 30 mg 12/28/16 06:23 12/28/16 06:28 Toradol IVPUSH 12/28/16 06:24 30 mg ONETIME ONE Administration Ondansetron HCl 4 mg 12/28/16 06:23 12/28/16 06:29 Zofran IVPUSH 12/28/16 06:24 4 mg ONETIME ONE Administration Departure - Departure Disposition: Still A Patient 30 Clinical Impression: Appendicitis Qualifiers: Appendicitis type: acute appendicitis Acute appendicitis type: unspecified acute appendicitis type Qualified Code(s): K35.80 - Unspecified acute appendicitis - Discharge Information - My Orders Last 24 Hours: My Active Orders 12/28/16 07:27 Abdomen Pelvis w Cont [CT] Stat 12/28/16 08:48 Blood Glucose Check, Bedside [RC] ONETIME 12/28/16 10:02 Patient Status [ADT] Stat - Assessment/Plan Last 24 Hours: My Active Orders 12/28/16 07:27 Abdomen Pelvis w Cont [CT] Stat 12/28/16 08:48 Blood Glucose Check, Bedside [RC] ONETIME 12/28/16 10:02 Patient Status [ADT] Stat <Mera Wilson - Last Filed: 12/28/16 10:12> ED HPI GENERAL MEDICAL PROBLEM - History of Present Illness INITIAL COMMENTS - FREE TEXT/NARRATIVE: This is Dr. Wilson dictating a note as I have assumed care of this patient at 7 AM. Agree with history and physical as above and I personally seen and evaluated this patient. The patient states that she has had this pain in the right upper quadrant radiating to her back on the right for the last 2-3 days and she has not noticed any changes with eating. She has not had nausea or vomiting or diarrhea. She's had no urinary symptoms. The patient states that her sugar has been somewhat erratic and she has been trying to work with her insulin as well as eating a note card diet. Patient states the pain is deep and aching and occasionally sharp. There is no right lower abdominal pain and no left-sided pain. She has not had a fever as cough or trauma. On my exam she is tender in the right upper quadrant but is only mild on deep palpation and the remainder the abdomen is benign without rebound or guarding. Labs have been reviewed and the only significant finding is of glucose in her urine without heat tones and a glucose value on her blood work of 304. I will cover her with insulin and I will prepare to do a CT scan of the abdomen and pelvis to gain the most information. Dr. Nash has called me with the CT scan report which indicates a very long appendix with a tip appendicitis which is retrocecal. I have placed a call out to our surgeon iron cutter Dr. Parra; he is currently doing a procedure and will contact me once he is finished. Patient's repeat glucose is improved after the insulin. We will await Dr. Parra's arrival for disposition and further care of this patient [id number]:Evangelina Parra was contacted and he will come down and see the patient and evaluate for disposition 1000: Dr. Parra is here in the ER evaluating the patient and due to the CT scan findings of tip appendicitis he is discussing surgery with the patient. SHe is agreeable He would like a dose of Mefoxin to be given and I will order that Impression: Abdominal pain with tip appendicitis, retrocecal Departure - Departure Time of Disposition: 10:11 Condition: Good
[2016-12-28 06:52] LABS: CHLORIDE,CL 104 mmol/L (98-110); SODIUM,NA 136 mmol/L (136-146)
[2016-12-28] MEDS ORDERED: HYDROmorphone 2 MG/ML Syringe IVPUSH ONE (06:56)
[2016-12-28] MEDS ORDERED: Insulin Regular, Human 100 Units/ML 10 ML Vial SUBCUT ONE (07:26)
[2016-12-28] MEDS ORDERED: Iopamidol 755 MG/ML 500 ML Multipack Bottle IVPUSH STA (07:30)
[2016-12-28] MEDS ORDERED: cefOXitin 2 GM in Premix Bag 1 BAG IV ONE ×2 (10:12→11:44)
[2016-12-28] MEDS ORDERED: Lactated Ringers 1,000 ML IV SCH ×2 (10:15→11:45)
--- NOTE | 2016-12-28 11:07 | PCM.PREANE ---
Preanesthetic Assessment - Anesthesia/Transfusion/Family Hx Anesthesia History: Prior Anesthesia Without Reaction (pt has had, BTL and endometrial ablation) Family History of Anesthesia Reaction: No Transfusion History: No Prior Transfusion(s) - Review of Systems General: No Symptoms Pulmonary: No Symptoms Cardiovascular: No Symptoms Gastrointestinal: Abdominal Pain Neurological: No Symptoms Other: Reports: Diabetes (type 2, on insulin. taking lantus in am (none today) , and novalog sliding scale with meals. Blood sugar on arrival was 304. Pt has received 15 units of reg insulin. ! hour later the blood sugar was 237. ) - Physical Assessment NPO Status Date: 12/27/16 O2 Sat by Pulse Oximetry: 97 Respiratory Rate: 18 Vital Signs: Last Vital Signs Temp 36.1 C 12/28/16 06:10 Pulse 78 12/28/16 06:10 Resp 18 12/28/16 06:10 BP 120/88 12/28/16 06:10 Pulse Ox 97 12/28/16 06:10 Height: 1.75 m Weight: 124 kg ASA Class: 3 Mental Status: Alert & Oriented x3 Dentition: Reports: Normal Dentition (narrow arched palate) ROM/Head Extension: Full Lungs: Clear to Auscultation, Normal Respiratory Effort Cardiovascular: Regular Rate, Regular Rhythm - Lab Values: Laboratory Last Values WBC 8.51 K/uL (4.0-11.0) 12/28/16 06:16 RBC 4.95 M/uL (4.30-5.90) 12/28/16 06:16 Hgb 15.0 g/dL (12.0-16.0) 12/28/16 06:16 Hct 42.1 % (36.0-46.0) 12/28/16 06:16 MCV 85.1 fL (80.0-98.0) 12/28/16 06:16 MCH 30.3 pg (27.0-32.0) 12/28/16 06:16 MCHC 35.6 g/dL (31.0-37.0) 12/28/16 06:16 RDW Std Deviation 38.9 fl (28.0-62.0) 12/28/16 06:16 RDW Coeff of Escobar 13 % (11.0-15.0) 12/28/16 06:16 Plt Count 294 K/uL (150-400) 12/28/16 06:16 MPV 9.60 fL (7.40-12.00) 12/28/16 06:16 Neut % (Auto) 46.8 % (48.0-80.0) L 12/28/16 06:16 Lymph % (Auto) 44.9 % (16.0-40.0) H 12/28/16 06:16 Johnston % (Auto) 5.9 % (0.0-15.0) 12/28/16 06:16 Eos % (Auto) 1.6 % (0.0-7.0) 12/28/16 06:16 Baso % (Auto) 0.8 % (0.0-1.5) 12/28/16 06:16 Neut # (Auto) 4.0 K/uL (1.4-5.7) 12/28/16 06:16 Lymph # (Auto) 3.8 K/uL (0.6-2.4) H 12/28/16 06:16 Johnston # (Auto) 0.5 K/uL (0.0-0.8) 12/28/16 06:16 Eos # (Auto) 0.1 K/uL (0.0-0.7) 12/28/16 06:16 Baso # (Auto) 0.1 K/uL (0.0-0.1) 12/28/16 06:16 Nucleated RBC % 0.0 /100WBC 12/28/16 06:16 Nucleated RBCs # 0 K/uL 12/28/16 06:16 Sodium 136 mmol/L (136-146) 12/28/16 06:16 Potassium 4.1 mmol/L (3.5-5.1) 12/28/16 06:16 Chloride 104 mmol/L (98-110) 12/28/16 06:16 Carbon Dioxide 22 mmol/L (21-31) 12/28/16 06:16 BUN 15 mg/dL (6.0-23.0) 12/28/16 06:16 Creatinine 0.8 mg/dL (0.6-1.5) 12/28/16 06:16 Est Cr Clr Drug Dosing 110.97 mL/min 12/28/16 06:16 Estimated GFR (MDRD) > 60.0 ml/min 12/28/16 06:16 Glucose 304 mg/dL (60-110) H 12/28/16 06:16 POC Glucose 237 mg/dL (60-110) H 12/28/16 08:51 Calcium 9.4 mg/dL (8.8-10.8) 12/28/16 06:16 Total Bilirubin 0.5 mg/dL (0.1-1.5) 12/28/16 06:16 AST 17 IU/L (5-40) 12/28/16 06:16 ALT 46 IU/L (8-54) 12/28/16 06:16 Alkaline Phosphatase 128 (40-150) 12/28/16 06:16 Total Protein 7.9 g/dL (6.0-8.0) 12/28/16 06:16 Albumin 4.3 g/dL (3.5-5.0) 12/28/16 06:16 Globulin 3.6 g/dL (2.0-3.5) H 12/28/16 06:16 Albumin/Globulin Ratio 1.2 (1.3-2.8) L 12/28/16 06:16 Lipase 46 U/L (7-80) 12/28/16 06:16 Urine Color YELLOW 12/28/16 06:16 Urine Appearance CLEAR 12/28/16 06:16 Urine pH 5.5 (5.0-8.0) 12/28/16 06:16 Ur Specific Matthews 1.025 (1.001-1.035) 12/28/16 06:16 Urine Protein NEGATIVE mg/dL (NEGATIVE) 12/28/16 06:16 Urine Glucose (UA) >=1000 mg/dL (NEGATIVE) 12/28/16 06:16 Urine Ketones NEGATIVE mg/dL (NEGATIVE) 12/28/16 06:16 Urine Occult Blood NEGATIVE (NEGATIVE) 12/28/16 06:16 Urine Nitrite NEGATIVE (NEGATIVE) 12/28/16 06:16 Urine Bilirubin NEGATIVE (NEGATIVE) 12/28/16 06:16 Urine Urobilinogen 0.2 EU/dL (<2.0) 12/28/16 06:16 Ur Leukocyte Esterase NEGATIVE (NEGATIVE) 12/28/16 06:16 Urine RBC 0-2 (0-2/HPF) 12/28/16 06:16 Urine WBC 0-1 (0-5/HPF) 12/28/16 06:16 Ur Epithelial Cells FEW (NONE-FEW) 12/28/16 06:16 Urine Bacteria FEW (NEGATIVE) 12/28/16 06:16 Urine HCG, Qual NEGATIVE (NEGATIVE) 12/28/16 06:16 - Allergies Allergies/Adverse Reactions: Allergies Allergy/AdvReac Type Severity Reaction Status Date / Time metformin AdvReac Intermediate Nausea and Verified 12/28/16 06:15 Vomiting - Anesthesia Plan Pre-Op Medication Ordered: Other (cefotetan infusion running in ED) - Acknowledgements Anesthesia Type Planned: General Anesthesia Pt an Appropriate Candidate for the Planned Anesthesia: Yes Alternatives and Risks of Anesthesia Discussed w Pt/Guardian: Yes Pt/Guardian Understands and Agrees with Anesthesia Plan: Yes Additional Comments: preg test is negative PreAnesthesia Questionnaire - Past Health History Medical/Surgical History: Denies Medical/Surgical History 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: 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, 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, Polycystic Ovaries , Endocrine/Metabolic History: Reports: Diabetes, Type II - Infectious Disease History Infectious Disease History: Reports: Chicken Pox - Past Surgical History Female Surgical History: Reports: Tubal Ligation Endocrine Surgical History: Reports: None - SUBSTANCE USE Smoking Status *Q: Never Smoker Second Hand Smoke Exposure: No Recreational Drug Use History: No - HOME MEDS Home Medications: Home Meds Insulin Aspart [Novolog Flexpen] 0 unit SQ TIDAC 08/31/16 [History] Insulin Glarg,Human.Rec.Analog [LantUS Solostar] 35 units SUBCUT DAILY 12/28/16 [History] - CURRENT (IN HOUSE) MEDS Current Meds: Current Medications Lactated Ringer's (Ringers, Lactated) 1,000 mls @ 150 mls/hr IV ASDIRECTED [facility] Last Admin: 12/28/16 10:24 Dose: 150 mls/hr Discontinued Medications Hydromorphone HCl (Dilaudid) 0.5 mg IVPUSH ONETIME ONE Stop: 12/28/16 06:57 Last Admin: 12/28/16 07:05 Dose: 0.5 mg Sodium Chloride (Normal Saline) 1,000 mls @ 999 mls/hr IV .Bolus ONE Stop: 12/28/16 07:22 Last Admin: 12/28/16 06:31 Dose: 999 mls/hr Cefoxitin Sodium 2 gm/ Premix 50 mls @ 100 mls/hr IV ONETIME ONE Stop: 12/28/16 10:41 Last Admin: 12/28/16 10:24 Dose: 100 mls/hr Insulin Human Regular (Novolin R) 15 unit SUBCUT ONETIME ONE PRN Reason: Protocol Stop: 12/28/16 07:27 Last Admin: 12/28/16 07:34 Dose: 15 units Iopamidol (Isovue Multipack-370 (76%)) 100 ml IVPUSH ONETIME STA Stop: 12/28/16 07:31 Last Admin: 12/28/16 07:31 Dose: 100 ml Ketorolac Tromethamine (Toradol) 30 mg IVPUSH ONETIME ONE Stop: 12/28/16 06:24 Last Admin: 12/28/16 06:28 Dose: 30 mg Ondansetron HCl (Zofran) 4 mg IVPUSH ONETIME ONE Stop: 12/28/16 06:24 Last Admin: 12/28/16 06:29 Dose: 4 mg
--- NOTE | 2016-12-28 12:44 | CT ---
CT of the abdomen and pelvis with contrast. HISTORY: Pain TECHNIQUE: Axial CT images were obtained of the abdomen and pelvis following administration of 100 mL of Isovue-370 in the left antecubital fossa without complication. Coronal and sagittal reconstructio ns obtained. FINDINGS: The lung bases are clear, no pleural effusion. The liver is hypodense with focal fatty sparing near the gallbladder fossa. Spleen and adrenal glands appear normal. The pancreas is unremarkable. The gallbladder appears normal. There is no bulky retro peritoneal lymphadenopathy or abdominal ascites. Kidneys enhance and function symmetrically without e vidence of obstructive uropathy. Punctate nonobstructing right renal stone noted. The visualized large and small bowel are normal in caliber. The tip of the appendix is distended to 1 cm with a trace periappendiceal stranding. The urinary bladder is normal. The uterus ovaries appear unremarkable. Tubal ligation clips are noted. Visualized osseous structures appear normal. IMPRESSION: 1. Tip appendicitis. 2. Punctate nonobstructing right renal stone. 3. Fatty infiltration of the liver.
[2016-12-28] MEDS ORDERED: fentaNYL 100 MCG/2 ML SDV ONE ×3 (13:38→16:48)
[2016-12-28] MEDS ORDERED: Midazolam 1 MG/ML 2 ML SDV ONE (13:38)
[2016-12-28] MEDS ORDERED: Propofol 200 MG/20 ML SDV ONE (13:38)
[2016-12-28] MEDS ORDERED: Neostigmine Methylsulfate 1 MG/ML 5 ML Syringe ONE (13:39)
[2016-12-28] MEDS ORDERED: Ketorolac 30 MG/ML SDV ONE (13:39)
[2016-12-28] MEDS ORDERED: Succinylcholine/Normal Saline 200 MG/10 ML Syringe ONE (13:39)
[2016-12-28] MEDS ORDERED: Rocuronium 10 MG/ML 10 ML Syringe ONE (13:39)
[2016-12-28] MEDS ORDERED: Bupivacaine 25%/EPINEPHrine/PF 30 ML ONE (13:42)
[2016-12-28] MEDS ORDERED: Octyl 2-Cyanoacrylate 1 Tube ONE (13:42)
--- NOTE | 2016-12-28 14:52 | HP ---
DATE OF : 1990 PRIMARY CARE PHYSICIAN: None PCP Consult from Dr. Mera Wilson, emergency room physician. CONCERNING QUESTION: Acute appendicitis. HISTORY OF PRESENT ILLNESS: The patient is a 26-year-old slightly large frame lady complaining over a 3-day history of a gradual onset of periumbilical pain, subsequently migrated to the right lower quadrant and pain is rated as a 3/10 three days ago and now is 10/10, and she cannot even move. The patient also remarked that the pain is sometimes radiating to the back, and seek help in the emergency room, got a CAT scan that shows acute appendicitis. Surgery was then consulted. PAST MEDICAL HISTORY: Significant for diabetes. No FL, CVA, or hypertension. PAST SURGICAL HISTORY: Normal vaginal delivery x2, tubal ligation, and uterine ablation in the past. ALLERGIES: Please refer to nursing note for details. MEDICATIONS: Please refer to nursing note for details. FAMILY HISTORY: Noncontributory. REVIEW OF SYSTEMS: Same as history of present illness. PHYSICAL EXAMINATION: GENERAL: A very pleasant, nice lady, in no acute distress. HEENT: Normocephalic, atraumatic. Sclerae anicteric. LUNGS: Clear to auscultation. HEART: Regular rate and rhythm. ABDOMEN: Soft, nondistended. No pulsating tender midline abdominal structure. A well-healed laparoscopic surgical scar supraumbilically. Exquisite tenderness in the right lower quadrant almost jumping on the bed and upon jumping she feels very painful too. CAT scan shows appendicitis. IMPRESSION: Acute appendicitis, clinically and imaging study. The patient would benefit from appendectomy. Risks and benefits were discussed with the patient including bleeding, infection, and damage to nearby organs, and the patient concurred to proceed as planned. As always, thank you for the kind referral. JAMIE BUI /[id number]
[2016-12-28] MEDS ORDERED: Ondansetron 4 MG/2 ML SDV ONE (16:48)
--- NOTE | 2016-12-28 16:50 | PCM.OPNOTE ---
- General Post-Op/Procedure Note Date of Surgery/Procedure: 12/28/16 Operative Procedure(s): lap spencer. lap appendectomy Findings: appendix is hyperemic, indulated, swollen, cw acute appendicitis, no gross perforation observed; [id number] Pre Op Diagnosis: acute appendicitis Post-Op Diagnosis: Same Anesthesia Technique: General ET Tube Primary Surgeon: Darinel Parra Pathology: sent Complications: None Condition: Stable
[2016-12-28] MEDS ORDERED: Acetaminophen 1,000 MG in Premix Bag 1 BAG IV ONE (17:07)
--- NOTE | 2016-12-28 17:35 | PCM.POSTAN ---
POST ANESTHESIA ASSESSMENT - MENTAL STATUS Mental Status: Other (sleepy but rousable, appropriate) - RESPIRATORY Respiratory Status: Respiratory Rate WNL, Airway Patent, O2 Saturation Stable ( on 2l/min nasal cannulae) - CARDIOVASCULAR CV Status: Pulse Rate WNL, Blood Pressure Stable - GASTROINTESTINAL GI Status: No Symptoms - PAIN Pain Score: 8 (sedstion prevents more narcotic analgesic, pt appears comfortable at rest, despite c/o pain. Falls asleep easily) - POST OP HYDRATION Hydration Status: Adequate & Stable (Pt has had both NSAID and iv acetaminophin , will hold off on giving any more narcotic until patient is less sedated. )
[2016-12-28] MEDS ORDERED: Morphine 2 MG/ML Syringe IVPUSH PRN (18:02)
[2016-12-28] MEDS ORDERED: Ondansetron 4 MG/2 ML SDV IVPUSH PRN (18:02)
[2016-12-28] MEDS ORDERED: Acetaminophen 500 MG Tab PO PRN (18:04)
[2016-12-28] MEDS: Lactated Ringers 1,000 ML IV SCH (18:18)
[2016-12-28] MEDS: Acetaminophen/oxyCODONE 325-5 MG Tab PO PRN (19:58)
[2016-12-28] MEDS ORDERED: Insulin Glargine,Human Rec. Analog 100 Units/ML 3 ML Pen SUBCUT SCH (22:00)
--- NOTE | 2016-12-28 23:08 | OR ---
SURGEON: Darinel Parra MD DATE OF PROCEDURE: 12/28/2016 PREOPERATIVE DIAGNOSIS: Acute appendicitis. POSTOPERATIVE DIAGNOSIS: Acute appendicitis. PROCEDURE PERFORMED: 1. Laparoscopic lysis of adhesion. 2. Laparoscopic appendectomy. COMPLICATIONS: None. FINDINGS: The patient is omentum incarcerated in the prior surgery and making the laparoscopic surgery not possible and so we have to take down the adhesion before the appendix can be visualized. The appendix was okay, there was no gross perforation, but indurated, hyperemic, and swollen consistent with acute appendicitis. PROCEDURE IN DETAIL: The patient was taken to the operating room and placed in supine position. Upon induction of general endotracheal anesthesia, the patient's abdomen was prepped and draped in a sterile fashion. Time-out was being called. The patient was identified, the procedure was identified, and antibiotic was given. Procedure was then started. Because of the patient's body habitus and patient obese and is requiring Elina technique to get into the abdomen, and once again the abdomen noticed a lot of adhesions, which obscured the surgery, and as a result, two more 5-mm ports were placed, one at the right upper quadrant, one at the left upper quadrant and takedown adherence, then tenia coli of the appendix was located. It was large, indurated, hyperemic, and swollen in the tip consistent with acute appendicitis. Gross perforation was not observed. Using a stapler, the appendix was amputated at the base and two more staplers amputated the mesoappendix and observation noted good hemostasis. Surgicel was placed in one piece to help in the hemostasis and the port removed, and finally, port sites were closed with skin approximated by use of skin staple and the umbilical site with deep stitches using 0 Vicryl to close the deep fascia and then skin approximated with the skin mary followed with appropriate dressing. The patient was awakened, extubated, and transferred to recovery in hemodynamically stable condition. The patient tolerated the procedure well. There were no intraoperative complications. Dr. Parra was present throughout the whole procedure. Two dose antibiotics given. 2 g IV Mefoxin was given at 10 o'clock and 1 g was given 6 hours later. JAMIE / HAO /[id number]
[2016-12-28] MEDS: Insulin Aspart 100 Units/ML 3 ML Pen SUBCUT SCH (23:38)
[2016-12-29] MEDS: Lactated Ringers 1,000 ML IV SCH (05:03)
[2016-12-29] MEDS: Insulin Aspart 100 Units/ML 3 ML Pen SUBCUT SCH (06:37)
[2016-12-29 09:07] VITALS: BP 110/63
[2016-12-29] MEDS: Acetaminophen/oxyCODONE 325-5 MG Tab PO PRN (09:21)
== END 2016-12-29 12:20 | disposition home or self-care (01) ==
LOC: MW.ED 06:10 → MW.SDS 10:02 → MW.MS 10:42 → MW.SDS 12-29 12:20
PROVIDERS: ATTEND Surgery
DX: K35.80 Unspecified acute appendicitis (principal); Z88.8 Allergy status to other drugs, medicaments and biological substances; Z79.4 Long term (current) use of insulin; Z79.2 Long term (current) use of antibiotics; Z79.899 Other long term (current) drug therapy; Z98.890 Other specified postprocedural states; Z98.51 Tubal ligation status
CPT/HCPCS: 44970; 74177; 80053; 81001; 81025; 82962; 83690; 85025; 88304; 96361; 96365; 96368; 96372; 96375; 99285; A9270; J1170; J1815; J1885; J2250; J2270; J2405; J3010; J7040; J7120; Q9967; 00840; 99284; J2704

== ENCOUNTER 2016-12-31 17:32 | Observation (INO) | payer BC ==
[2016-12-31] MEDS ORDERED: Sodium Chloride 0.9% 1,000 ML IV ONE ×2 (17:52→20:43)
[2016-12-31] MEDS ORDERED: Ondansetron 4 MG/2 ML SDV IVPUSH ONE (17:52)
--- NOTE | 2016-12-31 18:07 | EDM.PDOC ---
ED HPI GENERAL MEDICAL PROBLEM - General Chief Complaint: Abdominal Pain Stated Complaint: PT HAS STOMACH PAIN Time Seen by Provider: 12/31/16 17:56 Source of Information: Reports: Patient History Limitations: Reports: No Limitations - History of Present Illness INITIAL COMMENTS - FREE TEXT/NARRATIVE: HISTORY AND PHYSICAL: History of present illness: Patient is a 26-year-old female who presents to the emergency room today with complaints of os the surgical pain, shortness of breath, dizziness. Patient had a laparoscopic appendectomy done 2 days ago by . States she was discharged and felt fine. Has been up ambulating as she was directed. She states this afternoon she got up out of the chair started having a burning sensation to her low abdomen near the stab site from her surgery. She started to become short of breath and diaphoretic. Report she has not had a bowel movement in the last 2 days. Patient is a type II diabetic with insulin coverage, reports her blood sugars have been running in the 200s. Patient is able to void without any difficulty. No dysuria. Review of systems: As per history of present illness and below otherwise all systems reviewed and negative. Past medical history: As per history of present illness and as reviewed below otherwise noncontributory. Surgical history: As per history of present illness and as reviewed below otherwise noncontributory. Social history: No reported history of drug or alcohol abuse. Family history: As per history of present illness and as reviewed below otherwise noncontributory. Physical exam: Gen.: Well-developed and well-nourished 26-year-old female. Able to speak in short sentences before becoming short of breath. Alert and oriented. HEENT: Atraumatic, normocephalic, pupils reactive, negative for conjunctival pallor or scleral icterus, mucous membranes moist, throat clear, neck supple, nontender, trachea midline. Lungs: Clear to auscultation, breath sounds equal bilaterally, chest nontender. Heart: S1S2, regular rate and rhythm Abdomen: Soft, obese, tenderness to the right lower quadrant near the incisional site. Negative for masses. Negative for costovertebral tenderness. Skin: Patient has 3 incisional sites to the abdomen which are covered with Steri -Strips. The skin around it does not appear inflamed or infected. No drainage was able to be expressed for surgical site, non-fluctuant. Pelvis: Stable nontender. Genitourinary: Deferred. Rectal: Deferred. Extremities: Atraumatic, negative for cords or calf pain. Neurovascular unremarkable. Neuro: Awake, alert, oriented. Cranial nerves II through XII unremarkable. Cerebellum unremarkable. Motor and sensory unremarkable throughout. Exam nonfocal. CT chest was ordered due to patient's c/o SOB with tachycardia and been s/p surgery. Patient has returned from CT scan. She states she feels somewhat better but is still having pain 5 out of 10. I did offer her additional pain medication which she declined at this time stating "I will just suck it up". Vitals are stable with the current blood pressure reading is 119/67, saturation is 100%, heart rate of 96. Blood sugar is 219. CT of the chest was negative although it did show dependent atelectasis in the posterior lower lobes. The abdominal/pelvis CT Road some signs of suspicion for infection. Dr. Simmons was consult did on this case. He is agreeable to admitting this patient. He requested that I hang Ancef IV. Patient is aware and agreeable to staying over the night. Diagnostics: CBC, CMP, UA, CT chest and abdomen and pelvis Therapeutics: IV fluid, Zofran, morphine, Impression: Abdominal pain status post appendectomy Plan: Admission to observation to med/surg Definitive disposition and diagnosis as appropriate pending reevaluation and review of above. Onset: Today Duration: Hour(s): Location: Reports: Chest, Abdomen abdomen;chest;left shoulder Pain Score (Numeric/FACES): 10 - Related Data Allergies Allergy/AdvReac Type Severity Reaction Status Date / Time metformin AdvReac Intermediate Nausea and Verified 12/31/16 17:52 Vomiting Home Meds: Home Meds Insulin Aspart [Novolog Flexpen] 0 unit SQ TIDAC 08/31/16 [History] Exenatide Microspheres [Bydureon Pen] 2 mg SUBCUT WEEKLY 12/28/16 [History] Insulin Glarg,Human.Rec.Analog [LantUS Solostar] 35 units SUBCUT DAILY 12/28/16 [History] oxyCODONE HCl/Acetaminophen [Percocet 5-325 mg Tablet] 1 tab PO Q6H PRN #30 tablet 12/29/16 [Rx] Past Medical History - Past Health History Medical/Surgical History: Denies Medical/Surgical History HEENT History: Reports: Other (See Below) Other HEENT History: Astigmatism Genitourinary History: Reports: Other (See Below) Other Genitourinary History: UTI 6 years ago 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: 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, 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, Polycystic Ovaries , Endocrine/Metabolic History: Reports: Diabetes, Type II - Infectious Disease History Infectious Disease History: Reports: Chicken Pox - Past Surgical History GI Surgical History: Reports: Appendectomy Female Surgical History: Reports: None, Tubal Ligation Endocrine Surgical History: Reports: None Social & Family History - Family History Family Medical History: Noncontributory OBGYN: Reports: Endocrine/Metabolic: Reports: Diabetes, Type I - Tobacco Use Smoking Status *Q: Never Smoker Second Hand Smoke Exposure: No - Caffeine Use Caffeine Use: Reports: None - Recreational Drug Use Recreational Drug Use: No ED ROS GENERAL - Review of Systems Review Of Systems: ROS reveals no pertinent complaints other than HPI. ED EXAM, GI/ABD - Physical Exam Exam: See Below Course - Vital Signs Last Recorded V/S: Last Vital Signs Temp 37.7 C 12/31/16 17:32 Pulse 103 H 12/31/16 17:32 Resp 20 12/31/16 17:32 BP 108/51 L 12/31/16 17:32 Pulse Ox 98 12/31/16 17:32 - Orders/Labs/Meds Orders: Active Orders 24 hr Category Date Time Status Admission Status [Patient Status] [ADT] Stat ADT 12/31/16 20:45 Ordered Abdomen Pelvis w Cont [CT] Stat Exams 12/31/16 18:01 Taken Ang Chest [CT] Stat Exams 12/31/16 18:01 Taken HCG QUALITATIVE,URINE [URCHEM] Stat Lab 12/31/16 17:52 Uncollected UA W/MICROSCOPIC [URIN] Stat Lab 12/31/16 17:52 Uncollected Morphine Med 12/31/16 20:43 Ordered 2 mg IVPUSH Q2H PRN Sodium Chloride 0.9% [Normal Saline] 1,000 ml Med 12/31/16 20:43 Ordered IV STAT ceFAZolin [Ancef] 2,000 mg Med 12/31/16 20:43 Ordered Sodium Chloride 0.9% [Normal Saline] 50 ml IV ONETIME Labs: Laboratory Tests 12/31/16 12/31/16 Range/Units 18:01 18:01 WBC 13.27 H (4.0-11.0) K/uL RBC 4.69 (4.30-5.90) M/uL Hgb 14.1 (12.0-16.0) g/dL Hct 40.4 (36.0-46.0) % MCV 86.1 (80.0-98.0) fL MCH 30.1 (27.0-32.0) pg MCHC 34.9 (31.0-37.0) g/dL RDW Std Deviation 39.9 (28.0-62.0) fl RDW Coeff of Escobar 13 (11.0-15.0) % Plt Count 305 (150-400) K/uL MPV 9.20 (7.40-12.00) fL Neut % (Auto) 70.4 (48.0-80.0) % Lymph % (Auto) 22.5 (16.0-40.0) % Smith % (Auto) 6.2 (0.0-15.0) % Eos % (Auto) 0.6 (0.0-7.0) % Baso % (Auto) 0.3 (0.0-1.5) % Neut # (Auto) 9.4 H (1.4-5.7) K/uL Lymph # (Auto) 3.0 H (0.6-2.4) K/uL Smith # (Auto) 0.8 (0.0-0.8) K/uL Eos # (Auto) 0.1 (0.0-0.7) K/uL Baso # (Auto) 0.0 (0.0-0.1) K/uL Nucleated RBC % 0.0 /100WBC Nucleated RBCs # 0 K/uL Sodium 137 (136-146) mmol/L Potassium 3.6 (3.5-5.1) mmol/L Chloride 104 (98-110) mmol/L Carbon Dioxide 20 L (21-31) mmol/L BUN 8 (6.0-23.0) mg/dL Creatinine 0.7 (0.6-1.5) mg/dL Est Cr Clr Drug Dosing TNP Estimated GFR (MDRD) > 60.0 ml/min Glucose 219 H (60-110) mg/dL Calcium 9.7 (8.8-10.8) mg/dL Total Bilirubin 0.7 (0.1-1.5) mg/dL AST 18 (5-40) IU/L ALT 37 (8-54) IU/L Alkaline Phosphatase 111 (40-150) Total Protein 8.0 (6.0-8.0) g/dL Albumin 4.1 (3.5-5.0) g/dL Globulin 3.9 H (2.0-3.5) g/dL Albumin/Globulin Ratio 1.1 L (1.3-2.8) Amylase 21 (10-90) U/L Lipase 23 (7-80) U/L Meds: Medications Discontinued Medications Generic Name Dose Route Start Last Admin Trade Name Freq PRN Reason Stop Dose Admin Sodium Chloride 1,000 mls @ 999 mls/hr 12/31/16 17:52 12/31/16 18:43 Normal Saline IV 12/31/16 18:52 999 mls/hr STAT ONE Administration Iopamidol 100 ml 12/31/16 20:21 12/31/16 20:22 Isovue Multipack-370 (76%) IVPUSH 12/31/16 20:22 100 ml ONETIME STA Administration Morphine Sulfate 4 mg 12/31/16 18:14 12/31/16 18:45 Morphine IVPUSH 12/31/16 18:15 4 mg ONETIME ONE Administration Ondansetron HCl 8 mg 12/31/16 17:52 12/31/16 18:44 Zofran IVPUSH 12/31/16 17:53 8 mg ONETIME ONE Administration Departure - Departure Time of Disposition: 20:43 Disposition: Refer to Observation Clinical Impression: Abdominal pain Qualifiers: Abdominal location: right lower quadrant Qualified Code(s): R10.31 - Right lower quadrant pain - Discharge Information Referrals: PCP,None [Primary Care Provider] - Forms: ED Department Discharge - My Orders Last 24 Hours: My Active Orders 12/31/16 18:01 Abdomen Pelvis w Cont [CT] Stat Ang Chest [CT] Stat 12/31/16 20:43 Morphine 2 mg IVPUSH Q2H PRN Sodium Chloride 0.9% [Normal Saline] 1,000 ml IV STAT ceFAZolin [Ancef] 2,000 mg Sodium Chloride 0.9% [Normal Saline] 50 ml IV ONETIME 12/31/16 20:45 Admission Status [Patient Status] [ADT] Stat - Assessment/Plan Last 24 Hours: My Active Orders 12/31/16 18:01 Abdomen Pelvis w Cont [CT] Stat Ang Chest [CT] Stat 12/31/16 20:43 Morphine 2 mg IVPUSH Q2H PRN Sodium Chloride 0.9% [Normal Saline] 1,000 ml IV STAT ceFAZolin [Ancef] 2,000 mg Sodium Chloride 0.9% [Normal Saline] 50 ml IV ONETIME 12/31/16 20:45 Admission Status [Patient Status] [ADT] Stat
[2016-12-31] MEDS ORDERED: Morphine 4 MG/ML Syringe IVPUSH ONE (18:14)
[2016-12-31 18:52] LABS: CHLORIDE,CL 104 mmol/L (98-110); SODIUM,NA 137 mmol/L (136-146)
[2016-12-31] MEDS ORDERED: Iopamidol 755 MG/ML 500 ML Multipack Bottle IVPUSH STA (20:21)
[2016-12-31] MEDS ORDERED: Morphine 2 MG/ML Syringe IVPUSH PRN (20:43)
[2016-12-31] MEDS ORDERED: Lactated Ringers 1,000 ML IV SCH (22:45)
[2017-01-01] MEDS: Insulin Aspart 100 Units/ML 3 ML Pen SUBCUT SCH ×3 (00:18→11:54)
[2017-01-01] MEDS: Acetaminophen/oxyCODONE 325-5 MG Tab PO PRN ×2 (00:19→08:56)
[2017-01-01] MEDS: Morphine 2 MG/ML Syringe IVPUSH PRN ×2 (00:59→11:14)
[2017-01-01] MEDS ORDERED: ceFAZolin 1 GM in Premix Bag 1 BAG IV SCH (09:00)
[2017-01-01] MEDS ORDERED: Insulin Glargine,Human Rec. Analog 100 Units/ML 3 ML Pen SUBCUT SCH (09:00)
[2017-01-01] MEDS ORDERED: Bisacodyl 5 MG Tab PO ONE (11:01)
--- NOTE | 2017-01-01 11:06 | PCM.SN ---
- Free Text/Narrative Note: pt seen, chart reviewed, hp dictated, [id number]; admitted for infection dalal, ct and pain management
--- NOTE | 2017-01-01 11:10 | PCM.SURGPN ---
- General Info Date of Service: 01/01/17 Functional Status: Reports: Pain Controlled - Review of Systems General: Reports: No Symptoms Gastrointestinal: Reports: No Symptoms - Patient Data Vitals - Most Recent: Last Vital Signs Temp 97.7 F 01/01/17 09:11 Pulse 94 01/01/17 09:11 Resp 18 01/01/17 09:11 BP 110/63 01/01/17 09:11 Pulse Ox 96 01/01/17 09:11 Weight - Most Recent: 274 lb 14.663 oz I&O - Last 24 Hours: Intake & Output 12/31/16 01/01/17 01/01/17 22:59 06:59 14:59 Intake Total 1251 50 Output Total 0 Balance 1251 50 Lab Results Last 24 Hrs: Laboratory Results - last 24 hr 01/01/17 01/01/17 01/01/17 Range/Units 00:13 00:50 00:50 WBC (4.0-11.0) K/uL RBC (4.30-5.90) M/uL Hgb (12.0-16.0) g/dL Hct (36.0-46.0) % MCV (80.0-98.0) fL MCH (27.0-32.0) pg MCHC (31.0-37.0) g/dL RDW Std Deviation (28.0-62.0) fl RDW Coeff of Escobar (11.0-15.0) % Plt Count (150-400) K/uL MPV (7.40-12.00) fL Neut % (Auto) (48.0-80.0) % Lymph % (Auto) (16.0-40.0) % Campbell % (Auto) (0.0-15.0) % Eos % (Auto) (0.0-7.0) % Baso % (Auto) (0.0-1.5) % Neut # (Auto) (1.4-5.7) K/uL Lymph # (Auto) (0.6-2.4) K/uL Campbell # (Auto) (0.0-0.8) K/uL Eos # (Auto) (0.0-0.7) K/uL Baso # (Auto) (0.0-0.1) K/uL Nucleated RBC % /100WBC Nucleated RBCs # K/uL POC Glucose 180 H (60-110) mg/dL CK-MB (CK-2) 0.4 (0-6.6) ng/ml Troponin I < 0.10 (0.0-0.29) NG/ML 01/01/17 01/01/17 Range/Units 05:58 06:34 WBC 11.48 H (4.0-11.0) K/uL RBC 4.19 L (4.30-5.90) M/uL Hgb 12.5 (12.0-16.0) g/dL Hct 36.6 (36.0-46.0) % MCV 87.4 (80.0-98.0) fL MCH 29.8 (27.0-32.0) pg MCHC 34.2 (31.0-37.0) g/dL RDW Std Deviation 41.6 (28.0-62.0) fl RDW Coeff of Escobar 13 (11.0-15.0) % Plt Count 258 (150-400) K/uL MPV 9.20 (7.40-12.00) fL Neut % (Auto) 66.7 (48.0-80.0) % Lymph % (Auto) 24.6 (16.0-40.0) % Campbell % (Auto) 7.7 (0.0-15.0) % Eos % (Auto) 0.6 (0.0-7.0) % Baso % (Auto) 0.4 (0.0-1.5) % Neut # (Auto) 7.7 H (1.4-5.7) K/uL Lymph # (Auto) 2.8 H (0.6-2.4) K/uL Campbell # (Auto) 0.9 H (0.0-0.8) K/uL Eos # (Auto) 0.1 (0.0-0.7) K/uL Baso # (Auto) 0.1 (0.0-0.1) K/uL Nucleated RBC % 0.0 /100WBC Nucleated RBCs # 0 K/uL POC Glucose 164 H (60-110) mg/dL CK-MB (CK-2) (0-6.6) ng/ml Troponin I (0.0-0.29) NG/ML Med Orders - Current: Current Medications Bisacodyl (Dulcolax) 10 mg PO ONETIME ONE Stop: 01/01/17 11:02 Cefazolin Sodium/Dextrose 1 gm (/ Premix) 50 mls @ 100 mls/hr IV Q12H [facility] Last Admin: 01/01/17 08:57 Dose: 100 mls/hr Lactated Ringer's (Ringers, Lactated) 1,000 mls @ 75 mls/hr IV ASDIRECTED [facility] Last Admin: 01/01/17 00:24 Dose: 75 mls/hr Insulin Aspart (Novolog) 0 unit SUBCUT Q6H [facility] PRN Reason: Protocol Last Admin: 01/01/17 06:48 Dose: 1 unit Insulin Glargine (Lantus Solostar) 35 units SUBCUT DAILY [facility] Last Admin: 01/01/17 08:55 Dose: 35 units Morphine Sulfate (Morphine) 2 mg IVPUSH Q6H PRN PRN Reason: Pain Last Admin: 01/01/17 00:59 Dose: 2 mg Oxycodone/Acetaminophen (Percocet 325-5 Mg) 1 tab PO Q4H PRN PRN Reason: Pain Last Admin: 01/01/17 08:56 Dose: 1 tab Discontinued Medications Sodium Chloride (Normal Saline) 1,000 mls @ 999 mls/hr IV STAT ONE Stop: 12/31/16 18:52 Last Admin: 12/31/16 18:43 Dose: 999 mls/hr Cefazolin Sodium 2,000 mg/ (Sodium Chloride) 50 mls @ 100 mls/hr IV ONETIME ONE Stop: 12/31/16 21:12 Last Admin: 12/31/16 21:21 Dose: 100 mls/hr Sodium Chloride (Normal Saline) 1,000 mls @ 125 mls/hr IV STAT ONE Stop: 01/01/17 04:42 Last Admin: 12/31/16 21:22 Dose: 125 mls/hr Iopamidol (Isovue Multipack-370 (76%)) 100 ml IVPUSH ONETIME STA Stop: 12/31/16 20:22 Last Admin: 12/31/16 20:22 Dose: 100 ml Morphine Sulfate (Morphine) 4 mg IVPUSH ONETIME ONE Stop: 12/31/16 18:15 Last Admin: 12/31/16 18:45 Dose: 4 mg Morphine Sulfate (Morphine) 2 mg IVPUSH Q2H PRN PRN Reason: Pain Last Admin: 12/31/16 21:30 Dose: 2 mg Ondansetron HCl (Zofran) 8 mg IVPUSH ONETIME ONE Stop: 12/31/16 17:53 Last Admin: 12/31/16 18:44 Dose: 8 mg - Exam GI/Abdominal Exam: Normal Bowel Sounds, Soft, No Distention (wound cdi) - Problem List Review Problem List Initiated/Reviewed/Updated: Yes - My Orders Last 24 Hours: Active Orders 24 hr Category Date Time Status Blood Glucose Check, Bedside [RC] Q6H Care 01/01/17 00:00 Active EKG 12 Lead [EKG Documentation Completion] [RC] STAT Care 01/01/17 00:32 Active Ready for Discharge [RC] PER UNIT ROUTINE Care 01/01/17 11:07 Ordered Telemetry Monitoring [Cardiac Monitoring] [RC] Q8H Care 01/01/17 00:31 Active Full Liquid Diet [DIET] Diet 01/01/17 Lunch Active CXR [Chest 1V Frontal] [CR] Stat Exams 01/01/17 05:11 Taken Acetaminophen/oxyCODONE [Percocet 325-5 MG] Med 12/31/16 22:40 Active 1 tab PO Q4H PRN Bisacodyl [Dulcolax] Med 01/01/17 11:01 Once 10 mg PO ONETIME ONE Insulin Aspart [NovoLOG] Med 01/01/17 00:00 Active See Protocol SUBCUT Q6H Insulin Glarg,Human.Rec.Analog [LantUS Solostar] Med 01/01/17 09:00 Active 35 units SUBCUT DAILY Lactated Ringers [Ringers, Lactated] 1,000 ml Med 12/31/16 22:45 Active IV ASDIRECTED Morphine Med 12/31/16 22:40 Active 2 mg IVPUSH Q6H PRN ceFAZolin [Ancef] 1 gm Med 01/01/17 09:00 Active Premix Bag 1 bag IV Q12H Medication Orders Bisacodyl (Dulcolax) 10 mg PO ONETIME ONE Stop: 01/01/17 11:02 Cefazolin Sodium/Dextrose 1 gm (/ Premix) 50 mls @ 100 mls/hr IV Q12H [facility] Last Admin: 01/01/17 08:57 Dose: 100 mls/hr Lactated Ringer's (Ringers, Lactated) 1,000 mls @ 75 mls/hr IV ASDIRECTED [facility] Last Admin: 01/01/17 00:24 Dose: 75 mls/hr Insulin Aspart (Novolog) 0 unit SUBCUT Q6H [facility] PRN Reason: Protocol Last Admin: 01/01/17 06:48 Dose: 1 unit Admin: 01/01/17 00:18 Dose: 1 unit Insulin Glargine (Lantus Solostar) 35 units SUBCUT DAILY [facility] Last Admin: 01/01/17 08:55 Dose: 35 units Morphine Sulfate (Morphine) 2 mg IVPUSH Q6H PRN PRN Reason: Pain Last Admin: 01/01/17 00:59 Dose: 2 mg Oxycodone/Acetaminophen (Percocet 325-5 Mg) 1 tab PO Q4H PRN PRN Reason: Pain Last Admin: 01/01/17 08:56 Dose: 1 tab Admin: 01/01/17 00:19 Dose: 1 tab - Assessment Assessment (Free Text/Narrative):: ct showed questionable early infectoin, 48 hrs postop, really cannot tell for sure; put on low dose abx; wbc coming down; afebrile; and pt denied any pain on RLQ where appendectomy is and more concerned about periumb site where pt has dissection for port placement because of obesity; dc home fu as scheduled - Plan Plan (Free Text/Narrative):: ct showed questionable early infectoin, 48 hrs postop, really cannot tell for sure; put on low dose abx; wbc coming down; afebrile; and pt denied any pain on RLQ where appendectomy is and more concerned about periumb site where pt has dissection for port placement because of obesity; dc home fu as scheduled
--- NOTE | 2017-01-01 11:37 | HP ---
DATE OF : 1990 PRIMARY CARE PHYSICIAN: Roxi PCP ADMISSION DIAGNOSIS: Postop pain. HISTORY OF PRESENT ILLNESS: The patient is a 26-year-old lady with a BMI of 40+, status post laparoscopic appendectomy, a difficult appendectomy because of the body habitus, and postop discharged home and seen in the emergency room for unbearable pain. Denies fever, nausea, or vomiting. Presently, admitted for pain management and given IV hydration, and put on clear liquid diet, and also had a workup with CAT scan for the chest and for the abdomen as the patient complained about chest pain. PAST MEDICAL HISTORY: Please refer to admission history for details. PAST SURGICAL HISTORY: Please refer to admission history for details. ALLERGIES: Please refer to nursing for details. MEDICATIONS: Please refer to nursing for details. PHYSICAL EXAMINATION: GENERAL: A very pleasant, smiled to the doctor in pain, but not in distress. HEENT: Normocephalic, atraumatic. Sclerae anicteric. LUNGS: Clear to auscultation. HEART: Regular rate and rhythm. ABDOMEN: Soft. Wound is CDI (clean, dry, and intact). Stable to air. IMPRESSION: Postop pain. Admit for pain management and workup includes CT as the patient is at risk for abscess and put on antibiotic IV Ancef. As always, thank you for the kind referral. JAMIE BUI /[id number]
[2017-01-01 12:33] VITALS: BP 115/66
--- NOTE | 2017-01-03 10:01 | CT ---
EXAM DATE: 12/31/16 PATIENT'S AGE: 26 Patient: JS MENDOZA Facility: [place], [place] : 1990 Study: CT Abdomen/Pelvis [id number] 7:31:49 PM Ordering Physician: SHANEKA Final Report: HISTORY: Abdomen and chest pain. Status post appendectomy. TECHNIQUE: The abdomen and pelvis were scanned using helical technique at 3 mm intervals without IV contrast. Sagittal and coronal reconstructions were performed. Study is performed in conjunction with CT of the chest. IMPRESSION: Lung bases: Dependent atelectasis in both lung bases. Liver and gallbladder: There is diffuse hypodense liver parenchyma consistent fatty infiltration. No calcified gallstones. Spleen, pancreas and adrenal glands: Unremarkable. Kidneys and bladder: Symmetric nephrogram with symmetric excretion. No hydronephrosis. The bladder mildly distended and contains a tiny bubble of air. No wall thickening or perivesicular inflammatory change. Retroperitoneum and lymph nodes: The aorta is normal in caliber. There is a few small periaortic lymph nodes present. There are small mesenteric lymph nodes seen through the mesentery and in the right lower quadrant. GI tract: Stomach is decompressed. There is some fluid within nondilated small bowel loops. There are surgical sutures seen at the tip of the cecum from prior appendectomy. There is fat stranding present with a few bubbles of extraluminal air seen in the right pericolic gutter on images 118 through 129. This measures 2.3 x 2.1 x 2.5 cm. There are small mesenteric lymph nodes straight to the cecum. There are stool and gas seen throughout the colon. There is no free air in the abdomen. There is no free fluid the pelvis. Pelvic organs: Uterus and adnexa within normal limits. Abdominal wall: There is increased density in the subcutaneous fat around the umbilicus. There is also small amount of fluid and air seen at this site deep to the surgical clips. Osseous structures: Normal for age. IMPRESSION: 1. Diffuse hypodensity of the liver parenchyma consistent fatty infiltration. 2. Surgical suture is seen inferior to the tip of the cecum with hazy increased density in AP bubbles of air suspicious for infection or developing phlegmon. A fluid collection or himanshu abscess is not apparent. 3. Reactive lymph nodes in the right lower quadrant. 4. Increase density in subcutaneous fat about the umbilicus as well as some fluid and air seen deep to the skin mary consistent with postop fluid collection. This is difficult to exclude as cellulitis or abscess. 5. Tiny bubble of air within the bladder. Recommend correlation with recent instrumentation. There is no bladder wall thickening or perivesicular fat stranding to suggest cystitis. Dictated by Laisha Kelsey MD @ 12/31/2016 8:06:55 PM Dictated by: Laisha Kelsey MD @ 12/31/2016 20:07:16 (Electronic Signature) Report Signed by Proxy. [facility]
--- NOTE | 2017-01-03 10:04 | CT ---
EXAM DATE: 12/31/16 PATIENT'S AGE: 26 Patient: JS MENDOZA Facility: [facility], [place], [place] : 1990 Study: CT Chest Angio [id number] 7:32:15 PM Ordering Physician: SHANEKA Final Report: HISTORY: Abdomen and chest pain. Status post appendectomy. TECHNIQUE: The chest was scanned using helical technique at 1 mm after IV contrast. Sagittal and coronal reconstructions were performed. Study was performed in conjunction with CT of the abdomen and pelvis. FINDINGS: Mediastinum and akila: No pathologic mediastinal or hilar lymphadenopathy is seen. Cardiovascular structures: The thoracic aorta is normal in caliber. No dissection is seen. The bolus timing is the pulmonary arteries adequate at 258 Hounsfield units. No pulmonary embolus is identified. Heart is normal size. No pericardial effusion. Lungs and pleura: No pleural effusion. There is minimal dependent atelectasis posterior lower lobes. No consolidation. Trachea and major bronchi are patent. Chest wall: No pathologic axillary lymphadenopathy. No chest wall mass. Osseous structures: No suspicious lytic or blastic bone lesions are seen. IMPRESSION: 1. No pulmonary embolus is identified. 2. Thoracic aorta is free of aneurysm or dissection. 3. Dependent atelectasis in the posterior lower lobes. Dictated by Laisha Kelsey MD @ 12/31/2016 7:57:49 PM Dictated by: Laisha Kelsey MD @ 12/31/2016 20:07:21 (Electronic Signature) Report Signed by Proxy. [facility]
--- NOTE | 2017-01-03 10:46 | CR ---
EXAM DATE: 12/31/16 PATIENT'S AGE: 26 Patient: JS MENDOZA Facility: [place], [place] Site . Site : 1990 Study: XRay Chest [id number] 1:05:52 AM Ordering Physician: Aida Tena Final Report: INDICATIONS: Chest pain. TECHNIQUE: Chest 1 view. COMPARISON: CT chest 12/31/2016. FINDINGS: No pneumothorax, pleural effusion or airspace consolidation. Cardiac and mediastinal contours are within normal limits. Upper abdomen and osseous structures show no acute abnormality. IMPRESSION: No evidence of acute cardiopulmonary disease. Dictated by Stefan Eldridge MD @ 01/01/2017 1:09:37 AM Dictated by: Stefan Eldridge MD @ 01/01/2017 01:09:49 (Electronic Signature) Report Signed by Proxy. [facility]
== END 2017-01-01 13:50 | disposition home or self-care (01) ==
LOC: MW.ED 17:32 → MW.MS 20:45 → UNDOADMOB 20:59 → MW.MS 20:59
PROVIDERS: ADMIT Surgery; ATTEND Surgery
DX: G89.18 Other acute postprocedural pain (principal); Z90.49 Acquired absence of other specified parts of digestive tract
CPT/HCPCS: 36415; 71010; 71275; 74177; 80053; 82150; 82553; 82962; 83690; 84484; 85025; 93005; 96361; 96365; 96366; 96375; 96376; 99285; A9270; G0378; J0690; J1815; J2270; J2405; J7040; J7050; J7120; Q9967; 96374; 99283

== ENCOUNTER 2017-06-19 14:18 | Emergency (ER) | payer BC ==
[2017-06-19 15:40] VITALS: BP 123/57
[2017-06-19 16:44] LABS: CHLORIDE,CL 103 mmol/L (98-107); SODIUM,NA 138 mmol/L (136-145)
--- NOTE | 2017-06-19 16:56 | EDM.PDOC ---
ED HPI GENERAL MEDICAL PROBLEM - General Chief Complaint: Skin Complaint Stated Complaint: RASH Time Seen by Provider: 06/19/17 15:03 Source of Information: Reports: Patient History Limitations: Reports: No Limitations - History of Present Illness INITIAL COMMENTS - FREE TEXT/NARRATIVE: History of present illness: []Patient's had 3 days of right-sided abdominal pain radiating from her upper right quadrant to her upper right back. States the last time this happened she had appendicitis and had her appendix removed. Patient denies any fevers, chills or vomiting or diarrhea. He has a mild sore throat on the right side and she has broken out in a rash all over her body with joint pain. Review of systems: As per history of present illness and below otherwise all systems reviewed and negative. Past medical history: As per history of present illness and as reviewed below otherwise noncontributory. Surgical history: As per history of present illness and as reviewed below otherwise noncontributory. Social history: No reported history of drug or alcohol abuse. Family history: As per history of present illness and as reviewed below otherwise noncontributory. Physical exam: General: Well developed, well nourished in NAD HEENT: Atraumatic, normocephalic, pupils reactive, negative for conjunctival pallor or scleral icterus, mucous membranes moist, throat clear, neck supple, nontender, trachea midline. Lungs: Clear to auscultation, breath sounds equal bilaterally, chest nontender. Heart: S1S2, regular, negative for clicks, rubs, or JVD. Abdomen: Soft, nondistended, tender right upper quadrant no rebound or guarding. Negative for masses or hepatosplenomegaly. Negative for costovertebral tenderness. Pelvis: Stable nontender. Genitourinary: Deferred. Rectal: Deferred. Extremities: Atraumatic, negative for cords or calf pain. Neurovascular unremarkable. Neuro: Awake, alert, oriented. Cranial nerves II through XII unremarkable. Cerebellum unremarkable. Motor and sensory unremarkable throughout. Exam nonfocal. Skin: Diffuse fine light erythematous rash Diagnostics: []CBC, chemistry and urine are all negative except for elevated alkaline phosphatase. Given she had right upper quadrant pain I went ahead and ordered the ultrasound of the abdomen showed sludge in the gallbladder but no signs of cholecystitis or cholelithiasis. Therapeutics: [] Impression: []Viral syndrome with exanthem Plan: []Continue Benadryl for itching of the rash Tylenol Motrin for pain follow-up with primary care as needed return if symptoms worsen or change. Definitive disposition and diagnosis as appropriate pending reevaluation and review of above. - Related Data Allergies Allergy/AdvReac Type Severity Reaction Status Date / Time metformin AdvReac Intermediate Nausea and Verified 12/31/16 17:52 Vomiting Home Meds: Home Meds Insulin Aspart [Novolog Flexpen] 0 unit SQ TIDAC 08/31/16 [History] Insulin Glarg,Human.Rec.Analog [LantUS Solostar] 35 units SUBCUT DAILY 12/28/16 [History] oxyCODONE HCl/Acetaminophen [Percocet 5-325 mg Tablet] 1 tab PO Q6H PRN #30 tablet 12/29/16 [Rx] Levofloxacin 750 mg PO DAILY #5 tablet 01/01/17 [Rx] Past Medical History - Past Health History Medical/Surgical History: Denies Medical/Surgical History HEENT History: Reports: Other (See Below) Other HEENT History: Astigmatism Genitourinary History: Reports: Other (See Below) Other Genitourinary History: UTI 6 years ago [employer] History: Reports: 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, 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, Polycystic Ovaries , Psychiatric History: Reports: Anxiety Endocrine/Metabolic History: Reports: Diabetes, Type II - Infectious Disease History Infectious Disease History: Reports: Chicken Pox - Past Surgical History GI Surgical History: Reports: Appendectomy Female Surgical History: Reports: None, Tubal Ligation Endocrine Surgical History: Reports: None Social & Family History - Family History Family Medical History: Noncontributory OBGYN: Reports: Endocrine/Metabolic: Reports: Diabetes, Type I - Tobacco Use Smoking Status *Q: Never Smoker Second Hand Smoke Exposure: No - Caffeine Use Caffeine Use: Reports: None - Recreational Drug Use Recreational Drug Use: No ED ROS GENERAL - Review of Systems Review Of Systems: See Below (See history of present illness) ED EXAM, SKIN/RASH Exam: See Below (See history of present illness) Course - Vital Signs Last Recorded V/S: Last Vital Signs Temp 98.7 F 06/19/17 15:37 Pulse 97 06/19/17 15:37 Resp 17 06/19/17 15:37 BP 123/57 L 06/19/17 15:37 Pulse Ox 98 06/19/17 15:37 - Orders/Labs/Meds Orders: Active Orders 24 hr Category Date Time Status Abdomen Ltd [US] Stat Exams 06/19/17 16:56 Taken CULTURE STREP A CONFIRMATION [RM] Stat Lab 06/19/17 16:15 Results STREP SCRN A RAPID W CULT CONF [RM] Stat Lab 06/19/17 16:15 Ordered UA W/MICROSCOPIC [URIN] Stat Lab 06/19/17 16:20 Ordered Labs: Laboratory Tests 06/19/17 06/19/17 06/19/17 Range/Units 16:20 16:20 16:20 WBC 7.53 (4.0-11.0) K/uL RBC 4.90 (4.30-5.90) M/uL Hgb 14.5 (12.0-16.0) g/dL Hct 41.1 (36.0-46.0) % MCV 83.9 (80.0-98.0) fL MCH 29.6 (27.0-32.0) pg MCHC 35.3 (31.0-37.0) g/dL RDW Std Deviation 37.9 (28.0-62.0) fl RDW Coeff of Escobar 13 (11.0-15.0) % Plt Count 302 (150-400) K/uL MPV 8.50 (7.40-12.00) fL Add Manual Diff YES Neutrophils % (Manual) 46 L (48.0-80.0) % Band Neutrophils % 9 % Lymphocytes % (Manual) 39 (16.0-40.0) % Monocytes % (Manual) 2 (0.0-15.0) % Eosinophils % (Manual) 3 (0.0-7.0) % Basophils % (Manual) 1 (0.0-1.5) % Nucleated RBC % 0.0 /100WBC Absolute Seg Neuts 3.5 (1.4-5.7) Band Neutrophils # 0.7 Lymphocytes # (Manual) 2.9 H (0.6-2.4) Monocytes # (Manual) 0.2 (0.0-0.8) Eosinophils # (Manual) 0.2 (0.0-0.7) Basophils # (Manual) 0.1 (0.0-0.1) Nucleated RBCs # 0 K/uL Sodium 138 (136-145) mmol/L Potassium 3.8 (3.5-5.1) mmol/L Chloride 103 (98-107) mmol/L Carbon Dioxide 25.1 (21.0-32.0) mmol/L BUN 14 (7.0-18.0) mg/dL Creatinine 0.7 (0.6-1.0) mg/dL Est Cr Clr Drug Dosing 127.28 mL/min Estimated GFR (MDRD) > 60.0 ml/min Glucose 126 H (74-106) mg/dL Calcium 8.8 (8.5-10.1) mg/dL Total Bilirubin 0.3 (0.2-1.0) mg/dL AST 18 (15-37) IU/L ALT 45 (14-63) IU/L Alkaline Phosphatase 121 H (46-116) U/L Total Protein 7.4 (6.4-8.2) g/dL Albumin 3.7 (3.4-5.0) g/dL Globulin 3.7 H (2.0-3.5) g/dL Albumin/Globulin Ratio 1.0 L (1.3-2.8) Urine Color YELLOW Urine Appearance SLT CLOUDY Urine pH 5.5 (5.0-8.0) Ur Specific [place] 1.025 (1.001-1.035) Urine Protein NEGATIVE (NEGATIVE) mg/dL Urine Glucose (UA) NEGATIVE (NEGATIVE) mg/dL Urine Ketones NEGATIVE (NEGATIVE) mg/dL Urine Occult Blood NEGATIVE (NEGATIVE) Urine Nitrite NEGATIVE (NEGATIVE) Urine Bilirubin NEGATIVE (NEGATIVE) Urine Urobilinogen 0.2 (<2.0) EU/dL Ur Leukocyte Esterase NEGATIVE (NEGATIVE) Urine RBC 0-2 (0-2/HPF) Urine WBC 0-2 (0-5/HPF) Ur Epithelial Cells MODERATE (NONE-FEW) Urine Bacteria FEW (NEGATIVE) Urine Mucus LIGHT (NONE-MOD) Departure - Departure Time of Disposition: 18:28 Disposition: Home, Self-Care 01 Condition: Good Clinical Impression: Viral syndrome, Right upper quadrant pain - Discharge Information Referrals: Simeon Erwin MD [Primary Care Provider] - Forms: ED Department Discharge Additional Instructions: The following information is given to patients seen in the emergency department who are being discharged to home. This information is to outline your options for follow-up care. We provide all patients seen in our emergency department with a follow-up referral. The need for follow-up, as well as the timing and circumstances, are variable depending upon the specifics of your emergency department visit. If you don't have a primary care physician on staff, we will provide you with a referral. We always advise you to contact your personal physician following an emergency department visit to inform them of the circumstance of the visit and for follow-up with them and/or the need for any referrals to a consulting specialist. The emergency department will also refer you to a specialist when appropriate. This referral assures that you have the opportunity for follow-up care with a specialist. All of these measure are taken in an effort to provide you with optimal care, which includes your follow-up. Under all circumstances we always encourage you to contact your private physician who remains a resource for coordinating your care. When calling for follow-up care, please make the office aware that this follow-up is from your recent emergency room visit. If for any reason you are refused follow-up, please contact the [facility] Emergency Department at and asked to speak to the emergency department charge nurse. Benadryl, Tylenol Motrin for pain, follow up with primary care return if symptoms worsen or change. [facility] [address] [place] [id number] - My Orders Last 24 Hours: My Active Orders 06/19/17 16:15 CULTURE STREP A CONFIRMATION [RM] Stat STREP SCRN A RAPID W CULT CONF [RM] Stat 06/19/17 16:20 UA W/MICROSCOPIC [URIN] Stat 06/19/17 16:56 Abdomen Ltd [US] Stat - Assessment/Plan Last 24 Hours: My Active Orders 06/19/17 16:15 CULTURE STREP A CONFIRMATION [RM] Stat STREP SCRN A RAPID W CULT CONF [RM] Stat 06/19/17 16:20 UA W/MICROSCOPIC [URIN] Stat 06/19/17 16:56 Abdomen Ltd [US] Stat
--- NOTE | 2017-06-20 13:37 | US ---
EXAM DATE: 06/19/17 PATIENT'S AGE: 26 Patient: JS MENDOZA Facility: [place], [place] Site . Site : 1990 Study: US Abdomen Right -06/19/2017 6:08:57 PM Ordering Physician: Bk Olmstead Final Report: INDICATION: Right upper quadrant pain. Elevated alkaline phosphatase. TECHNIQUE: Abdominal limited ultrasound. FINDINGS: Exam is limited due to bowel gas. Pancreas could not be visualized due to bowel gas. Severe fatty infiltration of the liver causes increased echogenicity of the liver diffusely and decreased penetration of the hepatic parenchyma. No obvious focal abnormalities in the liver aside from focal fatty sparing adjacent to the gallbladder. The liver is not well visualized due to the decreased penetration due to fatty infiltration of liver. Gallbladder is not well distended. Small amount of sludge or debris within the gallbladder. No gallstones. No sonographic evidence of cholecystitis. Common bile duct measures 3.9 mm which is normal. Right kidney measures 10.7 cm and is negative for hydronephrosis. Remainder negative. IMPRESSION: 1. Severe diffuse fatty infiltration of the liver limiting evaluation of the liver due to decreased penetration of liver. Focal fatty sparing adjacent to gallbladder. 2. Bowel gas limits examination including nonvisualization of the pancreas. 3. Gallbladder not well distended and contains a small amount of sludge or debris. No cholelithiasis or cholecystitis. No biliary dilatation. Dictated by Delvis Arreguin MD @ Jun 19 2017 6:23PM (Electronic Signature) Report Signed by Proxy. ROSARIO
== END 2017-06-19 18:40 | disposition home or self-care (01) ==
LOC: MW.ED 14:18
DX: R10.11 Right upper quadrant pain (principal); B09 Unspecified viral infection characterized by skin and mucous membrane lesions; Z88.8 Allergy status to other drugs, medicaments and biological substances; Z79.4 Long term (current) use of insulin
CPT/HCPCS: 36415; 76705; 76705-26; 80053; 81001; 85025; 87081; 87880; 99283; 99284-25

== ENCOUNTER 2018-05-20 19:04 | Emergency (ER) | payer OTHER ==
[2018-05-20] MEDS ORDERED: LORazepam 2 MG/ML SDV IVPUSH ONE (19:13)
[2018-05-20] MEDS ORDERED: Sodium Chloride 0.9% 1,000 ML IV ONE (19:13)
[2018-05-20] MEDS ORDERED: Albuterol/Ipratropium 3.0-0.5 MG/3 ML Neb Soln NEB ONE (19:14)
--- NOTE | 2018-05-20 19:15 | EDM.PDOC ---
ED HPI GENERAL MEDICAL PROBLEM - General Chief Complaint: Chest Pain Stated Complaint: TROUBLE BREATHING Time Seen by Provider: 05/20/18 19:14 Source of Information: Reports: Patient - History of Present Illness INITIAL COMMENTS - FREE TEXT/NARRATIVE: HISTORY AND PHYSICAL: History of present illness: [Patient presents by private vehicle history of insulin-dependent diabetes has had some vomiting and loose stools, her glucose at home was measured at over 500 she did take 40 units of insulin prior to arrival She is alert interactive however quite anxious appearing no current fever nausea vomiting chills sweats does state she feels somewhat short of breath however this may be anxiety related ] History of tubal ligation Review of systems: As per history of present illness and below otherwise all systems reviewed and negative. Past medical history: As per history of present illness and as reviewed below otherwise noncontributory. Surgical history: As per history of present illness and as reviewed below otherwise noncontributory. Social history: No reported history of drug or alcohol abuse. Family history: As per history of present illness and as reviewed below otherwise noncontributory. Physical exam: HEENT: Atraumatic, normocephalic, pupils reactive, negative for conjunctival pallor or scleral icterus, mucous membranes moist, throat clear, neck supple, nontender, trachea midline. Lungs: Clear to auscultation, breath sounds equal bilaterally, chest nontender. Heart: S1S2, regular, negative for clicks, rubs, or JVD. Abdomen: Soft, nondistended, nontender. Negative for masses or hepatosplenomegaly. Negative for costovertebral tenderness. Pelvis: Stable nontender. Genitourinary: Deferred. Rectal: Deferred. Extremities: Atraumatic, negative for cords or calf pain. Neurovascular unremarkable. Neuro: Awake, alert, oriented. Cranial nerves II through XII unremarkable. Cerebellum unremarkable. Motor and sensory unremarkable throughout. Exam nonfocal. Diagnostics: CBC CMP UA ABG troponin lipase hCG EKG Chest [address] no contrast ] Therapeutics: [Normal saline Ativan 1 mg IV DuoNeb Toradol 30 mg IV Benadryl 50 mg IV ] Impression: Headache resolved [ insulin-dependent diabetes Hyperglycemia ] Definitive disposition and diagnosis as appropriate pending reevaluation and review of above. Chest Pain Score (Numeric/FACES): 4 - Related Data Allergies Allergy/AdvReac Type Severity Reaction Status Date / Time metformin AdvReac Intermediate Nausea and Verified 05/20/18 19:13 Vomiting Home Meds: Home Meds Insulin Aspart [Novolog Flexpen] 0 unit SQ TIDAC 08/31/16 [History] Insulin Glarg,Human.Rec.Analog [LantUS Solostar] 35 units SUBCUT DAILY 12/28/16 [History] Past Medical History - Past Health History Medical/Surgical History: Denies Medical/Surgical History HEENT History: Reports: Other (See Below) Other HEENT History: Astigmatism Genitourinary History: Reports: Other (See Below) Other Genitourinary History: UTI 6 years ago [employer]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: 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, 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, Polycystic Ovaries , Psychiatric History: Reports: Anxiety Endocrine/Metabolic History: Reports: Diabetes, Type II - Infectious Disease History Infectious Disease History: Reports: Chicken Pox - Past Surgical History GI Surgical History: Reports: Appendectomy Female Surgical History: Reports: None, Tubal Ligation Endocrine Surgical History: Reports: None Social & Family History - Family History Family Medical History: Noncontributory OBGYN: Reports: Endocrine/Metabolic: Reports: Diabetes, Type I - Caffeine Use Caffeine Use: Reports: None ED ROS GENERAL - Review of Systems Review Of Systems: See Below ED EXAM, GENERAL - Physical Exam Exam: See Below Course - Vital Signs Last Recorded V/S: Last Vital Signs Temp 98.7 F 05/20/18 19:13 Pulse 85 05/20/18 22:50 Resp 20 05/20/18 19:13 BP 106/68 05/20/18 22:50 Pulse Ox 95 05/20/18 22:50 - Orders/Labs/Meds Orders: Active Orders 24 hr Category Date Time Status EKG Documentation Completion [RC] STAT Care 05/20/18 19:19 Active RT Aerosol Therapy [RC] ASDIRECTED Care 05/20/18 19:14 Active CULTURE BLOOD [BC] Stat Lab 05/20/18 19:22 Received CULTURE BLOOD [BC] Stat Lab 05/20/18 19:34 Received Blood Culture x2 Reflex Set [OM.PC] Stat Oth 05/20/18 19:15 Ordered Labs: Laboratory Tests 05/20/18 05/20/18 05/20/18 Range/Units 19:22 19:22 19:22 WBC 10.45 (4.0-11.0) K/uL RBC 5.02 (4.30-5.90) M/uL Hgb 15.4 (12.0-16.0) g/dL Hct 42.5 (36.0-46.0) % MCV 84.7 (80.0-98.0) fL MCH 30.7 (27.0-32.0) pg MCHC 36.2 (31.0-37.0) g/dL RDW Std Deviation 38.9 (28.0-62.0) fl RDW Coeff of Escobar 13 (11.0-15.0) % Plt Count 317 (150-400) K/uL MPV 9.40 (7.40-12.00) fL Neut % (Auto) 52.0 (48.0-80.0) % Lymph % (Auto) 42.4 H (16.0-40.0) % Preston % (Auto) 4.3 (0.0-15.0) % Eos % (Auto) 0.5 (0.0-7.0) % Baso % (Auto) 0.8 (0.0-1.5) % Neut # (Auto) 5.4 (1.4-5.7) K/uL Lymph # (Auto) 4.4 H (0.6-2.4) K/uL Preston # (Auto) 0.5 (0.0-0.8) K/uL Eos # (Auto) 0.1 (0.0-0.7) K/uL Baso # (Auto) 0.1 (0.0-0.1) K/uL Nucleated RBC % 0.0 /100WBC Nucleated RBCs # 0 K/uL ABG pH (7.35-7.45) ABG pCO2 (35-45) mmHG ABG pO2 (75-100) mmHG ABG HCO3 (22-26) mEq/L ABG Total CO2 ABG Base Excess (-2.0-2.0) Sodium 132 L (136-145) mmol/L Potassium 3.6 (3.5-5.1) mmol/L Chloride 99 (98-107) mmol/L Carbon Dioxide 18.6 L (21.0-32.0) mmol/L BUN 13 (7.0-18.0) mg/dL Creatinine 0.8 (0.6-1.0) mg/dL Est Cr Clr Drug Dosing 110.39 mL/min Estimated GFR (MDRD) > 60.0 ml/min Glucose 251 H (74-106) mg/dL Calcium 9.2 (8.5-10.1) mg/dL Total Bilirubin 0.4 (0.2-1.0) mg/dL AST 20 (15-37) IU/L ALT 29 (14-63) IU/L Alkaline Phosphatase 122 H (46-116) U/L Troponin I < 0.050 (0.000-0.056) ng/mL Total Protein 8.0 (6.4-8.2) g/dL Albumin 4.0 (3.4-5.0) g/dL Globulin 4.0 (2.6-4.0) g/dL Albumin/Globulin Ratio 1.0 (0.9-1.6) Lipase 320 (73-393) U/L TSH 3rd Generation (0.36-3.74) uIU/mL Urine Color Urine Appearance Urine pH (5.0-8.0) Ur Specific Roxton (1.001-1.035) Urine Protein (NEGATIVE) mg/dL Urine Glucose (UA) (NEGATIVE) mg/dL Urine Ketones (NEGATIVE) mg/dL Urine Occult Blood (NEGATIVE) Urine Nitrite (NEGATIVE) Urine Bilirubin (NEGATIVE) Urine Urobilinogen (<2.0) EU/dL Ur Leukocyte Esterase (NEGATIVE) Urine Opiates Screen (NEGATIVE) Ur Oxycodone Screen (NEGATIVE) Urine Methadone Screen (NEGATIVE) Ur Barbiturates Screen (NEGATIVE) Ur Phencyclidine Scrn (NEGATIVE) Ur Amphetamine Screen (NEGATIVE) U Methamphetamines Scrn (NEGATIVE) U Benzodiazepines Scrn (NEGATIVE) U Cocaine Metab Screen (NEGATIVE) U Marijuana (THC) Screen (NEGATIVE) Ethyl Alcohol <3 mg/dL 05/20/18 05/20/18 05/20/18 Range/Units 19:22 19:33 19:33 WBC (4.0-11.0) K/uL RBC (4.30-5.90) M/uL Hgb (12.0-16.0) g/dL Hct (36.0-46.0) % MCV (80.0-98.0) fL MCH (27.0-32.0) pg MCHC (31.0-37.0) g/dL RDW Std Deviation (28.0-62.0) fl RDW Coeff of Escobar (11.0-15.0) % Plt Count (150-400) K/uL MPV (7.40-12.00) fL Neut % (Auto) (48.0-80.0) % Lymph % (Auto) (16.0-40.0) % Preston % (Auto) (0.0-15.0) % Eos % (Auto) (0.0-7.0) % Baso % (Auto) (0.0-1.5) % Neut # (Auto) (1.4-5.7) K/uL Lymph # (Auto) (0.6-2.4) K/uL Preston # (Auto) (0.0-0.8) K/uL Eos # (Auto) (0.0-0.7) K/uL Baso # (Auto) (0.0-0.1) K/uL Nucleated RBC % /100WBC Nucleated RBCs # K/uL ABG pH (7.35-7.45) ABG pCO2 (35-45) mmHG ABG pO2 (75-100) mmHG ABG HCO3 (22-26) mEq/L ABG Total CO2 ABG Base Excess (-2.0-2.0) Sodium (136-145) mmol/L Potassium (3.5-5.1) mmol/L Chloride (98-107) mmol/L Carbon Dioxide (21.0-32.0) mmol/L BUN (7.0-18.0) mg/dL Creatinine (0.6-1.0) mg/dL Est Cr Clr Drug Dosing mL/min Estimated GFR (MDRD) ml/min Glucose (74-106) mg/dL Calcium (8.5-10.1) mg/dL Total Bilirubin (0.2-1.0) mg/dL AST (15-37) IU/L ALT (14-63) IU/L Alkaline Phosphatase (46-116) U/L Troponin I (0.000-0.056) ng/mL Total Protein (6.4-8.2) g/dL Albumin (3.4-5.0) g/dL Globulin (2.6-4.0) g/dL Albumin/Globulin Ratio (0.9-1.6) Lipase (73-393) U/L TSH 3rd Generation 0.96 (0.36-3.74) uIU/mL Urine Color YELLOW Urine Appearance CLEAR Urine pH 5.5 (5.0-8.0) Ur Specific Roxton >= 1.030 (1.001-1.035) Urine Protein NEGATIVE (NEGATIVE) mg/dL Urine Glucose (UA) >=1000 (NEGATIVE) mg/dL Urine Ketones 15 H (NEGATIVE) mg/dL Urine Occult Blood NEGATIVE (NEGATIVE) Urine Nitrite NEGATIVE (NEGATIVE) Urine Bilirubin NEGATIVE (NEGATIVE) Urine Urobilinogen 0.2 (<2.0) EU/dL Ur Leukocyte Esterase NEGATIVE (NEGATIVE) Urine Opiates Screen NEGATIVE (NEGATIVE) Ur Oxycodone Screen NEGATIVE (NEGATIVE) Urine Methadone Screen NEGATIVE (NEGATIVE) Ur Barbiturates Screen NEGATIVE (NEGATIVE) Ur Phencyclidine Scrn NEGATIVE (NEGATIVE) Ur Amphetamine Screen NEGATIVE (NEGATIVE) U Methamphetamines Scrn NEGATIVE (NEGATIVE) U Benzodiazepines Scrn NEGATIVE (NEGATIVE) U Cocaine Metab Screen NEGATIVE (NEGATIVE) U Marijuana (THC) Screen NEGATIVE (NEGATIVE) Ethyl Alcohol mg/dL 05/20/18 Range/Units 20:54 WBC (4.0-11.0) K/uL RBC (4.30-5.90) M/uL Hgb (12.0-16.0) g/dL Hct (36.0-46.0) % MCV (80.0-98.0) fL MCH (27.0-32.0) pg MCHC (31.0-37.0) g/dL RDW Std Deviation (28.0-62.0) fl RDW Coeff of Escobar (11.0-15.0) % Plt Count (150-400) K/uL MPV (7.40-12.00) fL Neut % (Auto) (48.0-80.0) % Lymph % (Auto) (16.0-40.0) % Preston % (Auto) (0.0-15.0) % Eos % (Auto) (0.0-7.0) % Baso % (Auto) (0.0-1.5) % Neut # (Auto) (1.4-5.7) K/uL Lymph # (Auto) (0.6-2.4) K/uL Preston # (Auto) (0.0-0.8) K/uL Eos # (Auto) (0.0-0.7) K/uL Baso # (Auto) (0.0-0.1) K/uL Nucleated RBC % /100WBC Nucleated RBCs # K/uL ABG pH 7.390 (7.35-7.45) ABG pCO2 31 L (35-45) mmHG ABG pO2 89 (75-100) mmHG ABG HCO3 19 L (22-26) mEq/L ABG Total CO2 16.4 ABG Base Excess -5.2 L (-2.0-2.0) Sodium (136-145) mmol/L Potassium (3.5-5.1) mmol/L Chloride (98-107) mmol/L Carbon Dioxide (21.0-32.0) mmol/L BUN (7.0-18.0) mg/dL Creatinine (0.6-1.0) mg/dL Est Cr Clr Drug Dosing mL/min Estimated GFR (MDRD) ml/min Glucose (74-106) mg/dL Calcium (8.5-10.1) mg/dL Total Bilirubin (0.2-1.0) mg/dL AST (15-37) IU/L ALT (14-63) IU/L Alkaline Phosphatase (46-116) U/L Troponin I (0.000-0.056) ng/mL Total Protein (6.4-8.2) g/dL Albumin (3.4-5.0) g/dL Globulin (2.6-4.0) g/dL Albumin/Globulin Ratio (0.9-1.6) Lipase (73-393) U/L TSH 3rd Generation (0.36-3.74) uIU/mL Urine Color Urine Appearance Urine pH (5.0-8.0) Ur Specific Roxton (1.001-1.035) Urine Protein (NEGATIVE) mg/dL Urine Glucose (UA) (NEGATIVE) mg/dL Urine Ketones (NEGATIVE) mg/dL Urine Occult Blood (NEGATIVE) Urine Nitrite (NEGATIVE) Urine Bilirubin (NEGATIVE) Urine Urobilinogen (<2.0) EU/dL Ur Leukocyte Esterase (NEGATIVE) Urine Opiates Screen (NEGATIVE) Ur Oxycodone Screen (NEGATIVE) Urine Methadone Screen (NEGATIVE) Ur Barbiturates Screen (NEGATIVE) Ur Phencyclidine Scrn (NEGATIVE) Ur Amphetamine Screen (NEGATIVE) U Methamphetamines Scrn (NEGATIVE) U Benzodiazepines Scrn (NEGATIVE) U Cocaine Metab Screen (NEGATIVE) U Marijuana (THC) Screen (NEGATIVE) Ethyl Alcohol mg/dL Meds: Medications Discontinued Medications Generic Name Dose Route Start Last Admin Trade Name Freq PRN Reason Stop Dose Admin Albuterol/Ipratropium 3 ml 05/20/18 19:14 05/20/18 19:20 Duoneb 3.0-0.5 Mg/3 Ml NEB 05/20/18 19:15 3 ml ONETIME ONE Administration Diphenhydramine HCl 50 mg 05/20/18 20:05 05/20/18 20:19 Benadryl IVPUSH 05/20/18 20:06 50 mg ONETIME ONE Administration Sodium Chloride 1,000 mls @ 999 mls/hr 05/20/18 19:13 05/20/18 19:29 Normal Saline IV 05/20/18 20:13 999 mls/hr STAT ONE Administration Sodium Chloride Confirm 05/20/18 20:14 05/20/18 20:27 Normal Saline Administered 05/20/18 20:15 Not Given Dose 20 mls @ as directed .ROUTE .STK-MED ONE Insulin Human Regular 5 unit 05/20/18 21:45 05/20/18 22:22 Novolin R IVPUSH 05/20/18 21:46 5 units ONETIME ONE Administration Protocol Ketorolac Tromethamine 30 mg 05/20/18 20:05 05/20/18 20:17 Toradol IVPUSH 05/20/18 20:06 30 mg ONETIME ONE Administration Lorazepam 1 mg 05/20/18 19:13 05/20/18 19:30 Ativan IVPUSH 05/20/18 19:14 1 mg ONETIME ONE Administration Pantoprazole Sodium 80 mg 05/20/18 19:51 05/20/18 20:20 Protonix Iv IVPUSH 05/20/18 19:52 80 mg .BOLUS ONE Administration Sodium Chloride 20 ml 05/20/18 20:23 05/20/18 20:27 Normal Saline FLUSH 05/20/18 20:24 20 ml NOW STA Administration Departure - Departure Time of Disposition: 23:10 Disposition: Home, Self-Care 01 Condition: Good Clinical Impression: Hyperglycemia, Headache - Discharge Information Referrals: PCP,Unknown [Primary Care Provider] - Forms: ED Department Discharge - My Orders Last 24 Hours: My Active Orders 05/20/18 19:14 RT Aerosol Therapy [RC] ASDIRECTED 05/20/18 19:15 Blood Culture x2 Reflex Set [OM.PC] Stat 05/20/18 19:19 EKG Documentation Completion [RC] STAT 05/20/18 19:22 CULTURE BLOOD [BC] Stat 05/20/18 19:34 CULTURE BLOOD [BC] Stat - Assessment/Plan Last 24 Hours: My Active Orders 05/20/18 19:14 RT Aerosol Therapy [RC] ASDIRECTED 05/20/18 19:15 Blood Culture x2 Reflex Set [OM.PC] Stat 05/20/18 19:19 EKG Documentation Completion [RC] STAT 05/20/18 19:22 CULTURE BLOOD [BC] Stat 05/20/18 19:34 CULTURE BLOOD [BC] Stat
[2018-05-20] MEDS ORDERED: Pantoprazole 40 MG Vial IVPUSH ONE (19:51)
[2018-05-20] MEDS ORDERED: Ketorolac 30 MG/ML SDV IVPUSH ONE (20:05)
[2018-05-20] MEDS ORDERED: diphenhydrAMINE 50 MG/ML SDV IVPUSH ONE (20:05)
[2018-05-20] MEDS ORDERED: Sodium Chloride 0.9% 20 ML ONE (20:14)
[2018-05-20 20:20] LABS: CHLORIDE,CL 99 mmol/L (98-107); SODIUM,NA 132 mmol/L (136-145)
[2018-05-20] MEDS ORDERED: Sodium Chloride 0.9% 20 ML SDV FLUSH STA (20:23)
--- NOTE | 2018-05-20 20:55 | CR ---
INDICATION: Short of breath. TECHNIQUE: Upright AP chest. COMPARISON: 01/01/2017. FINDINGS: Compromised by body habitus. Normal cardiac, mediastinal and hilar contours. Normal pulmonary vasculature. Lungs are grossly clear. No pleural fluid or pneumothorax. IMPRESSION: No signs of acute thoracic disease. Dictated by Ari Crump MD @ 05/20/2018 8:53:55 PM Dictated by: Ari Crump MD @ 05/20/2018 20:54:00 (Electronically Signed)
[2018-05-20] MEDS ORDERED: Insulin Regular, Human 100 Units/ML 10 ML Vial IVPUSH ONE (21:45)
--- NOTE | 2018-05-20 22:37 | CT ---
INDICATION: Confusion. TECHNIQUE: Noncontrast axial images with coronal and sagittal reconstructions. COMPARISON: None. FINDINGS: No abnormal intracranial mass-effect or midline shift. No intracranial hemorrhage. No abnormal areas of attenuation are identified within the brain. CSF spaces are age-appropriate. No acute bony abnormality. Paranasal sinuses and mastoids are clear. IMPRESSION: No CT evidence of an acute intracranial abnormality. Dictated by Ari Crump MD @ 05/20/2018 10:36:11 PM Please note that all CT scans at this facility use dose modulation, iterative reconstruction, and/or weight-based dosing when appropriate to reduce radiation dose to as low as reasonably achievable. Dictated by: Ari Crump MD @ 05/20/2018 22:36:20 (Electronically Signed)
[2018-05-20 23:00] VITALS: BP 106/68
== END 2018-05-20 23:49 | disposition home or self-care (01) ==
LOC: MW.ED 19:04
DX: E11.65 Type 2 diabetes mellitus with hyperglycemia (principal); R51 Headache; Z79.899 Other long term (current) drug therapy; Z79.4 Long term (current) use of insulin
CPT/HCPCS: 36415; 36600; 70450; 71045; 80053; 80305; 81003; 82803; 83690; 84443; 84484; 85025; 87040; 87804; 93005; 96361; 96374; 96375; 99285; C9113; G0480; J1200; J1885; J2060; J7040; 99284; J1815-GY; J7620-GY

== ENCOUNTER 2018-10-19 07:18 | Day surgery (SDC) | payer OTHER ==
[2018-10-18 10:08] LABS: BLOOD UREA NITROGEN,BUN 25 mg/dL (7.0-18.0); CARBON DIOXIDE,CO2 22.2 mmol/L (21.0-32.0); CHLORIDE,CL 103 mmol/L (98-107); GLUCOSE RANDOM 176 mg/dL (74-106); POTASSIUM,K 4.2 mmol/L (3.5-5.1); SODIUM,NA 136 mmol/L (136-145)
[~2018-10-19 07:18] MED LIST: Sodium Chloride 0.9% 10 ML SDV IV PRN; Sodium Chloride 0.9% 10 ML Syringe FLUSH PRN; Sodium Chloride 0.9% 2.5 ML Syringe FLUSH PRN; ceFAZolin 2 GM in Premix Bag 1 BAG IV ONE
--- NOTE | 2018-10-19 07:50 | PCM.PREANE ---
Preanesthetic Assessment - Anesthesia/Transfusion/Family Hx Anesthesia History: Prior Anesthesia Without Reaction Family History of Anesthesia Reaction: No Transfusion History: No Prior Transfusion(s) Intubation History: Unknown - Review of Systems General: No Symptoms Pulmonary: No Symptoms Cardiovascular: No Symptoms Gastrointestinal: No Symptoms Neurological: No Symptoms Other: Reports: None - Physical Assessment Height: 5 ft 9 in Weight: 111.584 kg ASA Class: 2 Mental Status: Alert & Oriented x3 Airway Class: Mallampati = 2 Dentition: Reports: Normal Dentition Thyro-Mental Finger Breadths: 3 Mouth Opening Finger Breadths: 2 ROM/Head Extension: Full Lungs: Clear to Auscultation, Normal Respiratory Effort Cardiovascular: Regular Rate, Regular Rhythm - Lab Values: Laboratory Last Values WBC 8.68 K/uL (4.0-11.0) 10/18/18 09:38 RBC 5.10 M/uL (4.30-5.90) 10/18/18 09:38 Hgb 15.3 g/dL (12.0-16.0) 10/18/18 09:38 Hct 44.3 % (36.0-46.0) 10/18/18 09:38 MCV 86.9 fL (80.0-98.0) 10/18/18 09:38 MCH 30.0 pg (27.0-32.0) 10/18/18 09:38 MCHC 34.5 g/dL (31.0-37.0) 10/18/18 09:38 RDW Std Deviation 41.1 fl (28.0-62.0) 10/18/18 09:38 RDW Coeff of Escobar 13 % (11.0-15.0) 10/18/18 09:38 Plt Count 330 K/uL (150-400) 10/18/18 09:38 MPV 9.10 fL (7.40-12.00) 10/18/18 09:38 Nucleated RBC % 0.0 /100WBC 10/18/18 09:38 Nucleated RBCs # 0 K/uL 10/18/18 09:38 Sodium 136 mmol/L (136-145) 10/18/18 09:38 Potassium 4.2 mmol/L (3.5-5.1) 10/18/18 09:38 Chloride 103 mmol/L (98-107) 10/18/18 09:38 Carbon Dioxide 22.2 mmol/L (21.0-32.0) 10/18/18 09:38 BUN 25 mg/dL (7.0-18.0) H 10/18/18 09:38 Creatinine 0.7 mg/dL (0.6-1.0) 10/18/18 09:38 Est Cr Clr Drug Dosing 126.16 mL/min 10/18/18 09:38 Estimated GFR (MDRD) > 60.0 ml/min 10/18/18 09:38 Glucose 176 mg/dL (74-106) H 10/18/18 09:38 Calcium 9.0 mg/dL (8.5-10.1) 10/18/18 09:38 HCG, Qual NEGATIVE (NEG) 10/18/18 09:38 Blood Type A POSITIVE 10/18/18 09:38 Antibody Screen NEGATIVE 10/18/18 09:38 - Allergies Allergies/Adverse Reactions: Allergies Allergy/AdvReac Type Severity Reaction Status Date / Time metformin AdvReac Intermediate Nausea and Verified 10/16/18 10:24 Vomiting - Blood Blood Available: No - Anesthesia Plan Pre-Op Medication Ordered: None - Acknowledgements Anesthesia Type Planned: General Anesthesia Pt an Appropriate Candidate for the Planned Anesthesia: Yes Alternatives and Risks of Anesthesia Discussed w Pt/Guardian: Yes Pt/Guardian Understands and Agrees with Anesthesia Plan: Yes PreAnesthesia Questionnaire - Past Health History Medical/Surgical History: Denies Medical/Surgical History HEENT History: Reports: Other (See Below) Other HEENT History: Astigmatism Cardiovascular History: Reports: None Respiratory History: Reports: None Gastrointestinal History: Reports: None Genitourinary History: Reports: None 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: 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, 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, Polycystic Ovaries , Musculoskeletal History: Reports: None Neurological History: Reports: None Psychiatric History: Reports: Anxiety, Depression Endocrine/Metabolic History: Reports: Diabetes, Type I (A1c was 10 2 months ago - therapy was adjusted since), Obesity/BMI 30+ Hematologic History: Reports: None Immunologic History: Reports: None Oncologic (Cancer) History: Reports: None Dermatologic History: Reports: None - Infectious Disease History Infectious Disease History: Reports: Chicken Pox - Past Surgical History Head Surgeries/Procedures: Reports: None HEENT Surgical History: Reports: None Cardiovascular Surgical History: Reports: None Respiratory Surgical History: Reports: None GI Surgical History: Reports: Appendectomy Female Surgical History: Reports: 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, Tubal Ligation Endocrine Surgical History: Reports: None Neurological Surgical History: Reports: None Musculoskeletal Surgical History: Reports: None Oncologic Surgical History: Reports: None Dermatological Surgical History: Reports: None - SUBSTANCE USE Smoking Status *Q: Never Smoker Recreational Drug Use History: No - HOME MEDS Home Medications: Home Meds Empagliflozin [Jardiance] 25 mg PO BEDTIME 10/16/18 [History] Escitalopram Oxalate 10 mg PO DAILY 10/16/18 [History] Insulin Glargine,Hum.Rec.Anlog [Lantus Solostar] 45 units SUBCUT BEDTIME [History] Insulin Lispro [Humalog Kwikpen U-100] 1 injection SUBCUT ASDIRECTED 10/16/18 [ History] Semaglutide [Ozempic] 0.5 mg SUBCUT WEEKLY 10/16/18 [History] Spironolactone [Aldactone] 25 mg PO DAILY 10/16/18 [History] - CURRENT (IN HOUSE) MEDS Current Meds: Current Medications Lactated Ringer's (Ringers, Lactated) 1,000 mls @ 125 mls/hr IV ASDIRECTED CLEOPATRA Sodium Chloride (Saline Flush) 10 ml FLUSH ASDIRECTED PRN PRN Reason: Keep Vein Open Sodium Chloride (Saline Flush) 2.5 ml FLUSH ASDIRECTED PRN PRN Reason: Keep Vein Open Sodium Chloride (Normal Saline) 10 ml IV ASDIRECTED PRN PRN Reason: IV Use Discontinued Medications Cefazolin Sodium/Dextrose 2 gm (/ Premix) 50 mls @ 100 mls/hr IV ONETIME ONE Stop: 10/18/18 09:49
[2018-10-19] MEDS: Lactated Ringers 1,000 ML IV SCH (07:57)
[2018-10-19] MEDS ORDERED: fentaNYL 100 MCG/2 ML SDV ONE (08:17)
[2018-10-19] MEDS ORDERED: Lidocaine 2% 5 ML SDV ONE (08:17)
[2018-10-19] MEDS ORDERED: Midazolam 1 MG/ML 2 ML SDV ONE (08:17)
[2018-10-19] MEDS ORDERED: Ondansetron 4 MG/2 ML SDV ONE (08:17)
[2018-10-19] MEDS ORDERED: Propofol 200 MG/20 ML SDV ONE (08:17)
[2018-10-19] MEDS ORDERED: Dexamethasone 4 MG/ML 5 ML MDV ONE (08:17)
[2018-10-19] MEDS ORDERED: Glycopyrrolate 0.2 MG/ML SDV ONE ×2 (08:17→08:35)
[2018-10-19] MEDS ORDERED: Ketorolac 30 MG/ML SDV ONE (08:17)
[2018-10-19] MEDS ORDERED: Octyl 2-Cyanoacrylate 1 Tube ONE (08:19)
[2018-10-19] MEDS ORDERED: Fluorescein 5 ML Vial ONE (08:25)
[2018-10-19] MEDS ORDERED: Neostigmine Methylsulfate 1 MG/ML 5 ML Syringe ONE (08:35)
[2018-10-19] MEDS ORDERED: Rocuronium 100 MG/10 ML Syringe ONE (08:47)
[2018-10-19] MEDS ORDERED: Sodium Chloride 0.9% 20 ML ONE (08:53)
[2018-10-19] MEDS ORDERED: ceFAZolin 1 GM Vial ONE (08:53)
[2018-10-19] MEDS ORDERED: fentaNYL 250 MCG/5 ML SDV ONE ×2 (08:57→09:54)
[2018-10-19] MEDS ORDERED: Acetaminophen/oxyCODONE 325-5 MG Tab PO PRN (10:45)
[2018-10-19] MEDS ORDERED: Promethazine 25 MG/ML SDV IM PRN (10:45)
[2018-10-19] MEDS ORDERED: Ketorolac 30 MG/ML SDV IVPUSH PRN (10:45)
[2018-10-19] MEDS ORDERED: Ketorolac 30 MG/ML SDV IVPUSH ONE (10:45)
--- NOTE | 2018-10-19 10:53 | PCM.OPNOTE ---
- General Post-Op/Procedure Note Date of Surgery/Procedure: 10/19/18 Operative Procedure(s): TLH lysis ag adhesion, TLH, Cysto. Pre Op Diagnosis: Pelvic pain Post-Op Diagnosis: Same Anesthesia Technique: General LMA Primary Surgeon: Barber Larsen EBL in mLs: 150 Complications: None Condition: Good
[2018-10-19] MEDS: Morphine 4 MG/ML Syringe IVPUSH PRN ×2 (11:15→13:19)
[2018-10-19] MEDS ORDERED: HYDROmorphone 2 MG/ML Syringe IVPUSH ONE (11:29)
[2018-10-19] MEDS: fentaNYL 100 MCG/2 ML SDV IVPUSH PRN ×2 (11:38→11:44)
--- NOTE | 2018-10-19 12:06 | PCM.POSTAN ---
POST ANESTHESIA ASSESSMENT - MENTAL STATUS Mental Status: Alert, Oriented - RESPIRATORY Respiratory Status: Respiratory Rate WNL, Airway Patent, O2 Saturation Stable - CARDIOVASCULAR CV Status: Pulse Rate WNL, Blood Pressure Stable - GASTROINTESTINAL GI Status: No Symptoms - PAIN Pain Score: 5 - POST OP HYDRATION Hydration Status: Adequate & Stable - OBSERVATIONS Free Text/Narrative:: no anesthesia problems
[2018-10-19] MEDS: Insulin Aspart 100 Units/ML 3 ML Pen SUBCUT SCH ×3 (12:45→21:27)
[2018-10-19] MEDS: Acetaminophen/oxyCODONE 325-5 MG Tab PO PRN ×3 (12:50→23:04)
--- NOTE | 2018-10-19 13:56 | OR ---
SURGEON: Barber Larsen MD DATE OF PROCEDURE: 10/19/2018 PREOPERATIVE DIAGNOSIS: Pelvic pain, menometrorrhagia. POSTOPERATIVE DIAGNOSIS: Pelvic pain, menometrorrhagia. OPERATION PERFORMED: Multiple puncture diagnostic laparoscopy, lysis of adhesion, total laparoscopic hysterectomy, and cystoscopy. PRIMARY SURGEON: Barber Larsen MD. WELFARE MANAGER: OR tech. ANESTHESIA: General endotracheal intubation. ESTIMATED BLOOD LOSS: 175 mL. COMPLICATIONS: None. FINDINGS: Pelvic adhesion between the intestine, sigmoid colon, uterus, pelvic sidewalls, and anterior wall of the bladder. It is probably theorized this adhesion as rather filmy and it is probably from previous chlamydia infection. The uterus is mildly enlarged. Both ovaries essentially are normal. INDICATION FOR SURGERY: [place] referred to the admit note. PROCEDURE IN DETAIL: The patient was brought to the OR, properly identified. After adequate level of anesthesia, the patient was placed in lithotomy position, prepped and draped in sterile fashion as usual. A short-weighted speculum was placed in vagina and a York catheter was placed in bladder for drainage, and the uterine manipulator and colpotomizer were placed in place, a 3.[address], and then, the procedure shifted abdominally. Stab wound done beneath the umbilicus. The Veress needle was placed in the peritoneal cavity and that cavity insufflated with 3.5 L of carbon dioxide. The skin incision enlarged to accommodate operation started by using Endo scissors and the Harmonic scapula, lysing of adhesion done restoring normal anatomy. Volo of the pelvis was identified and using the Lico Harmonic scapula, the superior pedicle coagulated and transected on both side. Tubes and ovary preserved and the round ligament was coagulated and transected with Lico Harmonic scapula, and then, the bladder dissected downward medially pushing the bladder away from the operative field. The uterine vessel was coagulated and transected using the Lico Harmonic scapula at the level of the manipulator. It was noticed at this time that there was a bleeding from the left uterine artery and that was identified and isolated, and multiple hemoclips applied and the bleeding completely stopped. A thorough irrigation of the operative field showed again there was no oozing, no bleeding. Then, the vaginal cuff was entered with the Lico Harmonic scapula in a circular manner detaching the cervix from its attachment to the vagina. The uterus was removed vaginally and then again thorough irrigation, it shows no oozing, no bleeding. The vaginal cuff was closed laparoscopically using 2-0 PDS interrupted sutures. While we were doing that, we asked Anesthesia to give the patient fluorescein and a cystoscopy was performed. The bladder was intact. Both ureteric orifices seen with the dye coming from both of them. Thus, the patency of both ureters verified. Satisfied with these finding, the procedure ended. The instrument and hardware were retrieved from the abdomen and the vagina, and the multiple laparoscopic incisions were closed in layers. Instrument and sponge count was correct. The patient tolerated the procedure well, went to recovery room in stable and general condition. REZA / HAO /[id number]
[2018-10-19] MEDS: Ondansetron 4 MG/2 ML SDV IVPUSH PRN ×2 (16:49→23:05)
[2018-10-20] MEDS: Insulin Aspart 100 Units/ML 3 ML Pen SUBCUT SCH ×3 (00:37→08:16)
[2018-10-20] MEDS: Lactated Ringers 1,000 ML IV SCH (00:56)
[2018-10-20 06:21] LABS: BLOOD UREA NITROGEN,BUN 17 mg/dL (7.0-18.0); CARBON DIOXIDE,CO2 26.5 mmol/L (21.0-32.0); CHLORIDE,CL 106 mmol/L (98-107); GLUCOSE RANDOM 182 mg/dL (74-106); POTASSIUM,K 3.7 mmol/L (3.5-5.1); SODIUM,NA 139 mmol/L (136-145)
[2018-10-20 08:07] VITALS: BP 98/55; PULSE 96
--- NOTE | 2018-10-20 09:14 | PCM.SURGPN ---
- General Info Date of Service: 10/20/18 POD#: 1 Functional Status: Reports: Pain Controlled - Review of Systems General: Reports: No Symptoms HEENT: Reports: No Symptoms Pulmonary: Reports: No Symptoms Cardiovascular: Reports: No Symptoms Gastrointestinal: Reports: No Symptoms Genitourinary: Reports: No Symptoms Musculoskeletal: Reports: No Symptoms Skin: Reports: No Symptoms Neurological: Reports: No Symptoms Psychiatric: Reports: No Symptoms - Patient Data Vitals - Most Recent: Last Vital Signs Temp 35.9 C 10/20/18 08:00 Pulse 96 10/20/18 08:00 Resp 17 10/20/18 08:00 BP 98/55 L 10/20/18 08:00 Pulse Ox 93 L 10/20/18 08:00 Weight - Most Recent: 111.584 kg I&O - Last 24 Hours: Intake & Output 10/19/18 10/20/18 10/20/18 22:59 06:59 14:59 Intake Total 300 2405 Output Total 600 2300 Balance -300 105 Lab Results Last 24 Hrs: Laboratory Results - last 24 hr 10/19/18 10/19/18 10/19/18 Range/Units 10:56 12:35 15:57 WBC (4.0-11.0) K/uL RBC (4.30-5.90) M/uL Hgb (12.0-16.0) g/dL Hct (36.0-46.0) % MCV (80.0-98.0) fL MCH (27.0-32.0) pg MCHC (31.0-37.0) g/dL RDW Std Deviation (28.0-62.0) fl RDW Coeff of Escobar (11.0-15.0) % Plt Count (150-400) K/uL MPV (7.40-12.00) fL Neut % (Auto) (48.0-80.0) % Lymph % (Auto) (16.0-40.0) % [place] % (Auto) (0.0-15.0) % Eos % (Auto) (0.0-7.0) % Baso % (Auto) (0.0-1.5) % Neut # (Auto) (1.4-5.7) K/uL Lymph # (Auto) (0.6-2.4) K/uL [place] # (Auto) (0.0-0.8) K/uL Eos # (Auto) (0.0-0.7) K/uL Baso # (Auto) (0.0-0.1) K/uL Nucleated RBC % /100WBC Nucleated RBCs # K/uL Sodium (136-145) mmol/L Potassium (3.5-5.1) mmol/L Chloride (98-107) mmol/L Carbon Dioxide (21.0-32.0) mmol/L BUN (7.0-18.0) mg/dL Creatinine (0.6-1.0) mg/dL Est Cr Clr Drug Dosing mL/min Estimated GFR (MDRD) ml/min Glucose (74-106) mg/dL POC Glucose 205 H 202 H 142 H (60-110) mg/dL Calcium (8.5-10.1) mg/dL 10/19/18 10/20/18 10/20/18 Range/Units 20:21 00:35 04:44 WBC (4.0-11.0) K/uL RBC (4.30-5.90) M/uL Hgb (12.0-16.0) g/dL Hct (36.0-46.0) % MCV (80.0-98.0) fL MCH (27.0-32.0) pg MCHC (31.0-37.0) g/dL RDW Std Deviation (28.0-62.0) fl RDW Coeff of Escobar (11.0-15.0) % Plt Count (150-400) K/uL MPV (7.40-12.00) fL Neut % (Auto) (48.0-80.0) % Lymph % (Auto) (16.0-40.0) % [place] % (Auto) (0.0-15.0) % Eos % (Auto) (0.0-7.0) % Baso % (Auto) (0.0-1.5) % Neut # (Auto) (1.4-5.7) K/uL Lymph # (Auto) (0.6-2.4) K/uL [place] # (Auto) (0.0-0.8) K/uL Eos # (Auto) (0.0-0.7) K/uL Baso # (Auto) (0.0-0.1) K/uL Nucleated RBC % /100WBC Nucleated RBCs # K/uL Sodium (136-145) mmol/L Potassium (3.5-5.1) mmol/L Chloride (98-107) mmol/L Carbon Dioxide (21.0-32.0) mmol/L BUN (7.0-18.0) mg/dL Creatinine (0.6-1.0) mg/dL Est Cr Clr Drug Dosing mL/min Estimated GFR (MDRD) ml/min Glucose (74-106) mg/dL POC Glucose 203 H 213 H 161 H (60-110) mg/dL Calcium (8.5-10.1) mg/dL 10/20/18 10/20/18 10/20/18 Range/Units 05:35 05:35 08:14 WBC 9.06 (4.0-11.0) K/uL RBC 4.20 L (4.30-5.90) M/uL Hgb 12.4 (12.0-16.0) g/dL Hct 37.1 (36.0-46.0) % MCV 88.3 (80.0-98.0) fL MCH 29.5 (27.0-32.0) pg MCHC 33.4 (31.0-37.0) g/dL RDW Std Deviation 42.0 (28.0-62.0) fl RDW Coeff of Escobar 13 (11.0-15.0) % Plt Count 286 (150-400) K/uL MPV 9.20 (7.40-12.00) fL Neut % (Auto) 58.0 (48.0-80.0) % Lymph % (Auto) 35.2 (16.0-40.0) % [place] % (Auto) 5.7 (0.0-15.0) % Eos % (Auto) 0.7 (0.0-7.0) % Baso % (Auto) 0.4 (0.0-1.5) % Neut # (Auto) 5.3 (1.4-5.7) K/uL Lymph # (Auto) 3.2 H (0.6-2.4) K/uL [place] # (Auto) 0.5 (0.0-0.8) K/uL Eos # (Auto) 0.1 (0.0-0.7) K/uL Baso # (Auto) 0.0 (0.0-0.1) K/uL Nucleated RBC % 0.0 /100WBC Nucleated RBCs # 0 K/uL Sodium 139 (136-145) mmol/L Potassium 3.7 (3.5-5.1) mmol/L Chloride 106 (98-107) mmol/L Carbon Dioxide 26.5 (21.0-32.0) mmol/L BUN 17 (7.0-18.0) mg/dL Creatinine 0.6 (0.6-1.0) mg/dL Est Cr Clr Drug Dosing 147.19 mL/min Estimated GFR (MDRD) > 60.0 ml/min Glucose 182 H (74-106) mg/dL POC Glucose 190 H (60-110) mg/dL Calcium 8.5 (8.5-10.1) mg/dL Med Orders - Current: Current Medications Fentanyl (Sublimaze) 50 - 100 mcg IVPUSH Q5M PRN PRN Reason: Pain (severe 7-10) Last Admin: 10/19/18 11:44 Dose: 50 mcg Lactated Ringer's (Ringers, Lactated) 1,000 mls @ 125 mls/hr IV ASDIRECTED [facility] Last Admin: 10/20/18 00:56 Dose: 125 mls/hr Insulin Aspart (Novolog) 0 unit SUBCUT Q4H [facility]; Protocol Last Admin: 10/20/18 08:16 Dose: 2 units Ketorolac Tromethamine (Toradol) 30 mg IVPUSH Q6H PRN PRN Reason: Pain (severe 7-10) Stop: 10/24/18 10:46 Morphine Sulfate (Morphine) 4 mg IVPUSH Q2H PRN PRN Reason: Pain (severe 7-10) Last Admin: 10/19/18 13:19 Dose: 4 mg Ondansetron HCl (Zofran) 4 mg IVPUSH Q6H PRN PRN Reason: Nausea/Vomiting Last Admin: 10/19/18 23:05 Dose: 4 mg Oxycodone/Acetaminophen (Percocet 325-5 Mg) 1 tab PO Q4H PRN PRN Reason: Pain (moderate 4-6) Oxycodone/Acetaminophen (Percocet 325-5 Mg) 2 tab PO Q4H PRN PRN Reason: Pain (moderate 4-6) Last Admin: 10/19/18 23:04 Dose: 2 tab Promethazine HCl (Phenergan) 25 mg IM Q6H PRN PRN Reason: Nausea/Vomiting Sodium Chloride (Saline Flush) 10 ml FLUSH ASDIRECTED PRN PRN Reason: Keep Vein Open Sodium Chloride (Saline Flush) 2.5 ml FLUSH ASDIRECTED PRN PRN Reason: Keep Vein Open Sodium Chloride (Normal Saline) 10 ml IV ASDIRECTED PRN PRN Reason: IV Use Discontinued Medications Cefazolin Sodium (Ancef) Confirm Administered Dose 2 gm .ROUTE .STK-MED ONE Stop: 10/19/18 08:54 Dexamethasone (Dexamethasone) Confirm Administered Dose 20 mg .ROUTE .STK-MED ONE Stop: 10/19/18 08:18 Fentanyl (Sublimaze) Confirm Administered Dose 100 mcg .ROUTE .STK-MED ONE Stop: 10/19/18 08:18 Fentanyl (Sublimaze) Confirm Administered Dose 250 mcg .ROUTE .STK-MED ONE Stop: 10/19/18 08:58 Fentanyl (Sublimaze) Confirm Administered Dose 250 mcg .ROUTE .STK-MED ONE Stop: 10/19/18 09:55 Fluorescein Sodium (Ak-Fluor) Confirm Administered Dose 5 ml .ROUTE .STK-MED ONE Stop: 10/19/18 08:26 Glycopyrrolate (Robinul) Confirm Administered Dose 0.2 mg .ROUTE .STK-MED ONE Stop: 10/19/18 08:18 Glycopyrrolate (Robinul) Confirm Administered Dose 0.6 mg .ROUTE .STK-MED ONE Stop: 10/19/18 08:36 Hydromorphone HCl (Dilaudid) 1 mg IVPUSH ONETIME ONE Stop: 10/19/18 11:30 Last Admin: 10/19/18 11:59 Dose: 0.5 mg Cefazolin Sodium/Dextrose 2 gm (/ Premix) 50 mls @ 100 mls/hr IV ONETIME ONE Stop: 10/18/18 09:49 Last Admin: 10/19/18 12:04 Dose: Not Given Sodium Chloride (Normal Saline) Confirm Administered Dose 20 mls @ as directed .ROUTE .STK-MED ONE Stop: 10/19/18 08:54 Ketorolac Tromethamine (Toradol) Confirm Administered Dose 30 mg .ROUTE .STK- MED ONE Stop: 10/19/18 08:18 Ketorolac Tromethamine (Toradol) 30 mg IVPUSH ONETIME ONE Stop: 10/19/18 10:46 Last Admin: 10/19/18 11:11 Dose: 30 mg Lidocaine (Xylocaine-Mpf 2%) Confirm Administered Dose 5 ml .ROUTE .STK-MED ONE Stop: 10/19/18 08:18 Midazolam HCl (Versed 1 Mg/Ml) Confirm Administered Dose 2 mg .ROUTE .STK-MED ONE Stop: 10/19/18 08:18 Neostigmine Methylsulfate (Neostigmine) Confirm Administered Dose 5 mg .ROUTE .STK-MED ONE Stop: 10/19/18 08:36 Octyl Cyanoacrylate (Dermabond Advance) Confirm Administered Dose 1 applic .ROUTE .STK-MED ONE Stop: 10/19/18 08:20 Ondansetron HCl (Zofran) Confirm Administered Dose 4 mg .ROUTE .STK-MED ONE Stop: 10/19/18 08:18 Propofol (Diprivan 20 Ml) Confirm Administered Dose 200 mg .ROUTE .STK-MED ONE Stop: 10/19/18 08:18 Rocuronium [place] (Zemuron) Confirm Administered Dose 100 mg .ROUTE .STK-MED ONE Stop: 10/19/18 08:48 - Exam Wound/Incisions: Healing Well General: Alert, Oriented HEENT: Pupils Equal Neck: Supple Lungs: Clear to Auscultation, Normal Respiratory Effort Cardiovascular: Regular Rate, Regular Rhythm GI/Abdominal Exam: Normal Bowel Sounds, Soft, Non-Tender, No Organomegaly, No Distention, No Abnormal Bruit, No Mass, Pelvis Stable Extremities: Normal Inspection, Normal Range of Motion, Non-Tender, No Pedal Edema, Normal Capillary Refill Skin: Warm, Dry, Intact Neurological: No New Focal Deficit Psy/Mental Status: Alert, Normal Affect, Normal Mood - Problem List Review Problem List Initiated/Reviewed/Updated: Yes - My Orders Last 24 Hours: Active Orders 24 hr Category Date Time Status Patient Status [ADT] Routine ADT 10/19/18 10:46 Active Antiembolic Devices [RC] PER UNIT ROUTINE Care 10/19/18 10:46 Active Blood Glucose Check, Bedside [RC] QIDACANDBED Care 10/19/18 10:48 Active Notify Provider Vital Signs [RC] ASDIRECTED Care 10/19/18 10:46 Active Oxygen Therapy [RC] ASDIRECTED Care 10/19/18 10:46 Active RT Incentive Spirometry [RC] Q2HWA Care 10/19/18 10:46 Active Up With Assistance [RC] PER UNIT ROUTINE Care 10/19/18 10:46 Active Up ad Lisa [RC] PER UNIT ROUTINE Care 10/19/18 10:46 Active Regular Diet [DIET] Diet 10/19/18 Lunch Active Acetaminophen/oxyCODONE [Percocet 325-5 MG] Med 10/19/18 10:45 Active 1 tab PO Q4H PRN Acetaminophen/oxyCODONE [Percocet 325-5 MG] Med 10/19/18 10:45 Active 2 tab PO Q4H PRN Insulin Aspart [NovoLOG] Med 10/19/18 12:00 Active See Protocol SUBCUT Q4H Ketorolac [Toradol] Med 10/19/18 10:45 Active 30 mg IVPUSH Q6H PRN Morphine Med 10/19/18 10:45 Active 4 mg IVPUSH Q2H PRN Ondansetron [Zofran] Med 10/19/18 10:45 Active 4 mg IVPUSH Q6H PRN Promethazine [Phenergan] Med 10/19/18 10:45 Active 25 mg IM Q6H PRN fentaNYL [Sublimaze] Med 10/19/18 11:29 Active 50 - 100 mcg IVPUSH Q5M PRN Peripheral IV Discontinue [OM.PC] Routine Oth 10/19/18 10:46 Ordered Sequential Compression Device [OM.PC] Per Unit Routine Oth 10/19/18 10:46 Ordered Resuscitation Status Routine Resus Stat 10/19/18 10:45 Ordered Medication Orders Fentanyl (Sublimaze) 50 - 100 mcg IVPUSH Q5M PRN PRN Reason: Pain (severe 7-10) Last Admin: 10/19/18 11:44 Dose: 50 mcg Admin: 10/19/18 11:38 Dose: 50 mcg Lactated Ringer's (Ringers, Lactated) 1,000 mls @ 125 mls/hr IV ASDIRECTED [facility] Last Admin: 10/20/18 00:56 Dose: 125 mls/hr Infusion: 10/19/18 15:57 Dose: 125 mls/hr Admin: 10/19/18 07:57 Dose: 125 mls/hr Insulin Aspart (Novolog) 0 unit SUBCUT Q4H [facility]; Protocol Last Admin: 10/20/18 08:16 Dose: 2 units Admin: 10/20/18 04:46 Dose: 2 units Admin: 10/20/18 00:37 Dose: 4 units Admin: 10/19/18 21:27 Dose: 4 units Admin: 10/19/18 16:37 Dose: Not Given Admin: 10/19/18 12:45 Dose: 4 units Ketorolac Tromethamine (Toradol) 30 mg IVPUSH Q6H PRN PRN Reason: Pain (severe 7-10) Stop: 10/24/18 10:46 Morphine Sulfate (Morphine) 4 mg IVPUSH Q2H PRN PRN Reason: Pain (severe 7-10) Last Admin: 10/19/18 13:19 Dose: 4 mg Admin: 10/19/18 11:15 Dose: 4 mg Ondansetron HCl (Zofran) 4 mg IVPUSH Q6H PRN PRN Reason: Nausea/Vomiting Last Admin: 10/19/18 23:05 Dose: 4 mg Admin: 10/19/18 16:49 Dose: 4 mg Oxycodone/Acetaminophen (Percocet 325-5 Mg) 1 tab PO Q4H PRN PRN Reason: Pain (moderate 4-6) Oxycodone/Acetaminophen (Percocet 325-5 Mg) 2 tab PO Q4H PRN PRN Reason: Pain (moderate 4-6) Last Admin: 10/19/18 23:04 Dose: 2 tab Admin: 10/19/18 16:49 Dose: 2 tab Admin: 10/19/18 12:50 Dose: 2 tab Promethazine HCl (Phenergan) 25 mg IM Q6H PRN PRN Reason: Nausea/Vomiting Sodium Chloride (Saline Flush) 10 ml FLUSH ASDIRECTED PRN PRN Reason: Keep Vein Open Sodium Chloride (Saline Flush) 2.5 ml FLUSH ASDIRECTED PRN PRN Reason: Keep Vein Open Sodium Chloride (Normal Saline) 10 ml IV ASDIRECTED PRN PRN Reason: IV Use - Assessment Assessment (Free Text/Narrative):: Status post laparoscopic hysterectomy patient is doing well bowel sign was stable incision is clean dry there is no vaginal bleeding she is on regular diet she is ambulatory she is voiding without any problem - Plan Plan (Free Text/Narrative):: She will be sent home today the postvasectomy instruction sheet is given prescription of Narco 5 for postoperative pain she is having appointment to see me in the office in one week
--- NOTE | 2018-10-20 09:44 | PCM48HPAN ---
Post Anesthesia Note - EVALUATION WITHIN 48HRS OF ANESTHETIC Vital Signs in Normal Range: Yes Patient Participated in Evaluation: Yes Respiratory Function Stable: Yes Airway Patent: Yes Cardiovascular Function Stable: Yes Hydration Status Stable: Yes Pain Control Satisfactory: Yes Nausea and Vomiting Control Satisfactory: Yes Mental Status Recovered: Yes Resp Rate: 17 - COMMENTS/OBSERVATIONS Free Text/Narrative:: No anesthesia problems
[2018-10-20] MEDS: Acetaminophen/oxyCODONE 325-5 MG Tab PO PRN (10:00)
== END 2018-10-20 10:15 | disposition home or self-care (01) ==
LOC: MW.SDS 07:18 → MW.MS 10:54 → MW.SDS 10-20 10:15
PROVIDERS: ATTEND Obstetrics & Gynecology
DX: N92.1 Excessive and frequent menstruation with irregular cycle (principal); N73.6 Female pelvic peritoneal adhesions (postinfective); N85.2 Hypertrophy of uterus; F32.9 Major depressive disorder, single episode, unspecified; E13.9 Other specified diabetes mellitus without complications; E28.2 Polycystic ovarian syndrome; E66.9 Obesity, unspecified; Z68.37 Body mass index [BMI] 37.0-37.9, adult; Z98.51 Tubal ligation status; Z88.8 Allergy status to other drugs, medicaments and biological substances; Z79.4 Long term (current) use of insulin; Z79.899 Other long term (current) drug therapy
CPT/HCPCS: 36415; 58571; 80048; 82962; 84703; 85025; 85027; 86850; 86900; 86901; A9270; J0690; J1100; J1170; J1815; J1885; J2001; J2250; J2270; J2405; J2704; J3010; J3490; J7120; 00840; 88307

== ENCOUNTER 2018-10-24 22:40 | Emergency (ER) | payer OTHER ==
[2018-10-24] MEDS ORDERED: Sodium Chloride 0.9% 2.5 ML Syringe FLUSH PRN (23:05)
[2018-10-24] MEDS ORDERED: Ondansetron 4 MG/2 ML SDV IVPUSH ONE (23:05)
[2018-10-24] MEDS ORDERED: Sodium Chloride 0.9% 1,000 ML IV ONE (23:05)
[2018-10-24] MEDS ORDERED: HYDROmorphone 1 MG/ML Syringe IVPUSH ONE (23:05)
[2018-10-24] MEDS ORDERED: Sodium Chloride 0.9% 10 ML Syringe FLUSH PRN (23:05)
--- NOTE | 2018-10-24 23:10 | EDM.PDOC ---
ED HPI GENERAL MEDICAL PROBLEM - General Chief Complaint: General Stated Complaint: PT HAS STOMACH PAIN Time Seen by Provider: 10/24/18 22:57 - History of Present Illness INITIAL COMMENTS - FREE TEXT/NARRATIVE: HISTORY AND PHYSICAL: History of present illness: The patient is a 27-year-old female who underwent a laparoscopic procedure with Dr. Larsen on October 19, lysis of adhesions cystoscopy and hysterectomy for menometrorrhagia and chronic pelvic pain, and who presents with return of lower back pain and lower abdominal pain more on the left that started yesterday. The patient said that she was discharged on October 20 and over the weekend she was doing very well and in fact was up moving around and went to [facility] and did go to the park for a walk. She said she didn't have any pain on the weekend and stopped taking the pain medication. Yesterday she said that there was gradual onset of lower back pain more on the left side and lower pelvic pain that has worsened and the oxycodone she was prescribed is not controlling it. She has had no nausea or vomiting and has no upper abdominal pain. She has had loose watery stools/diarrhea over the last 2 days but no fevers or flank pain and no urinary complaints. She denies chest pain or shortness of breath and has no upper back pain. She says her incisions look good and she has not noticed any drainage or changes. She did not connect with her provider in the clinic earlier today although she says she did attempt to call him to tell him that she was having return of the pain. She is pushing her hydration and eating normally but tonight the pain seemed to worsen and was not controlled with the oral meds and she thought she should come in to be checked. She is not having any vaginal bleeding or drainage. Review of systems: As per history of present illness and below otherwise all systems reviewed and negative. Past medical history: As per history of present illness and as reviewed below otherwise noncontributory. Surgical history: As per history of present illness and as reviewed below otherwise noncontributory. Social history: No reported history of drug or alcohol abuse. Family history: As per history of present illness and as reviewed below otherwise noncontributory. Physical exam: General: Well-developed well-nourished overweight female who is nontoxic but looks uncomfortable in the ED with movements. Vital signs are noted by me HEENT: Atraumatic, normocephalic, pupils reactive, negative for conjunctival pallor or scleral icterus, mucous membranes tacky, throat clear, neck supple, nontender, trachea midline. Lungs: Clear to auscultation, breath sounds equal bilaterally, chest nontender. Heart: S1S2, regular rhythm and slightly tachycardic rate, no overt murmurs, negative for clicks, rubs, or JVD. Abdomen: Soft, nondistended, bowel sounds are hypoactive but there is no tympany on percussion. Incisions are seen at bilateral lower quadrants and umbilicus and have dressings in place and there are clean and dry and there is no surrounding erythema or tenderness. There is no drainage appreciated on my exam. There is no upper abdominal tenderness and starting at the level of below the umbilicus to the suprapubic area there is diffuse tenderness more on the left than on the right and in the suprapubic area with some voluntary guarding but no involuntary guarding or rebound. Negative for masses or hepatosplenomegaly. Negative for costovertebral tenderness. Pelvis: Stable nontender. Genitourinary: Deferred. Rectal: Deferred. Extremities: Atraumatic, negative for cords or calf pain. Neurovascular unremarkable. Neuro: Awake, alert, oriented. Cranial nerves II through XII unremarkable. Cerebellum unremarkable. Motor and sensory unremarkable throughout. Exam nonfocal. Diagnostics: CBC CMP UA with reflex lactic acid CT scan of the abdomen and pelvis Therapeutics: IV, IV fluids Zofran Dilaudid Patient and significant other at bedside are aware of all testing results and I have also discussed this case with Dr. Larsen at 1:40 AM. The patient does have an appointment later today and he reminded me of that and the patient also told me this on my subsequent conversation but not on my initial interview. He wants her to continue using the pain medication as needed pushing hydration and he will see her later today. Patient is comfortable with this care plan and is feeling more comfortable and in less pain. Impression: Postoperative pain, history of laparoscopic hysterectomy Definitive disposition and diagnosis as appropriate pending reevaluation and review of above. back/lower abdomen Pain Score (Numeric/FACES): 10 - Related Data Allergies Allergy/AdvReac Type Severity Reaction Status Date / Time metformin AdvReac Intermediate Nausea and Verified 10/24/18 22:54 Vomiting Home Meds: Home Meds Empagliflozin [Jardiance] 25 mg PO BEDTIME 10/16/18 [History] Escitalopram Oxalate 10 mg PO DAILY 10/16/18 [History] Insulin Glargine,Hum.Rec.Anlog [Lantus Solostar] 45 units SUBCUT BEDTIME [History] Insulin Lispro [Humalog Kwikpen U-100] 1 injection SUBCUT ASDIRECTED 10/16/18 [ History] Spironolactone [Aldactone] 25 mg PO DAILY 10/16/18 [History] Past Medical History - Past Health History Medical/Surgical History: Denies Medical/Surgical History HEENT History: Reports: Other (See Below) Other HEENT History: Astigmatism Cardiovascular History: Reports: None Respiratory History: Reports: None Gastrointestinal History: Reports: None Genitourinary History: Reports: None 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: Reports: 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, 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, Polycystic Ovaries , Musculoskeletal History: Reports: None Neurological History: Reports: None Psychiatric History: Reports: Anxiety, Depression Endocrine/Metabolic History: Reports: Diabetes, Type I, Obesity/BMI 30+ Hematologic History: Reports: None Immunologic History: Reports: None Oncologic (Cancer) History: Reports: None Dermatologic History: Reports: None - Infectious Disease History Infectious Disease History: Reports: None - Past Surgical History Head Surgeries/Procedures: Reports: None HEENT Surgical History: Reports: None Cardiovascular Surgical History: Reports: None Respiratory Surgical History: Reports: None GI Surgical History: Reports: Appendectomy Female Surgical History: Reports: 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, Hysterectomy, Tubal Ligation Endocrine Surgical History: Reports: None Neurological Surgical History: Reports: None Musculoskeletal Surgical History: Reports: None Oncologic Surgical History: Reports: None Dermatological Surgical History: Reports: None Social & Family History - Family History Family Medical History: Noncontributory OBGYN: Reports: Endocrine/Metabolic: Reports: Diabetes, Type I - Tobacco Use Smoking Status *Q: Never Smoker - Caffeine Use Caffeine Use: Reports: Soda - Recreational Drug Use Recreational Drug Use: No ED ROS GENERAL - Review of Systems Review Of Systems: ROS reveals no pertinent complaints other than HPI. ED EXAM, GENERAL - Physical Exam Exam: See Below (See dictation) Course - Vital Signs Last Recorded V/S: Last Vital Signs Temp 35.9 C 10/25/18 00:53 Pulse 89 10/25/18 00:53 Resp 18 10/25/18 00:53 BP 117/77 10/25/18 00:53 Pulse Ox 100 10/25/18 00:53 - Orders/Labs/Meds Orders: Active Orders 24 hr Category Date Time Status UA W/MICROSCOPIC [URIN] Stat Lab 10/25/18 01:15 Results Sodium Chloride 0.9% [Saline Flush] Med 10/24/18 23:05 Active 10 ml FLUSH ASDIRECTED PRN Sodium Chloride 0.9% [Saline Flush] Med 10/24/18 23:05 Active 2.5 ml FLUSH ASDIRECTED PRN Saline Lock Insert [OM.PC] Stat Oth 10/24/18 23:04 Ordered Medication Orders Sodium Chloride (Saline Flush) 10 ml FLUSH ASDIRECTED PRN PRN Reason: Keep Vein Open Sodium Chloride (Saline Flush) 2.5 ml FLUSH ASDIRECTED PRN PRN Reason: Keep Vein Open Labs: Laboratory Tests 10/24/18 10/24/18 10/24/18 Range/Units 23:30 23:30 23:30 WBC 11.14 H (4.0-11.0) K/uL RBC 4.94 (4.30-5.90) M/uL Hgb 14.7 (12.0-16.0) g/dL Hct 42.9 (36.0-46.0) % MCV 86.8 (80.0-98.0) fL MCH 29.8 (27.0-32.0) pg MCHC 34.3 (31.0-37.0) g/dL RDW Std Deviation 40.9 (28.0-62.0) fl RDW Coeff of Escobar 13 (11.0-15.0) % Plt Count 357 (150-400) K/uL MPV 9.30 (7.40-12.00) fL Neut % (Auto) 58.5 (48.0-80.0) % Lymph % (Auto) 33.8 (16.0-40.0) % [place] % (Auto) 6.2 (0.0-15.0) % Eos % (Auto) 1.1 (0.0-7.0) % Baso % (Auto) 0.4 (0.0-1.5) % Neut # (Auto) 6.5 H (1.4-5.7) K/uL Lymph # (Auto) 3.8 H (0.6-2.4) K/uL [place] # (Auto) 0.7 (0.0-0.8) K/uL Eos # (Auto) 0.1 (0.0-0.7) K/uL Baso # (Auto) 0.1 (0.0-0.1) K/uL Nucleated RBC % 0.0 /100WBC Nucleated RBCs # 0 K/uL Lactate 2.7 H (0.20-2.00) mmol/L Sodium 139 (136-145) mmol/L Potassium 3.9 (3.5-5.1) mmol/L Chloride 102 (98-107) mmol/L Carbon Dioxide 22.6 (21.0-32.0) mmol/L BUN 14 (7.0-18.0) mg/dL Creatinine 0.8 (0.6-1.0) mg/dL Est Cr Clr Drug Dosing 110.39 mL/min Estimated GFR (MDRD) > 60.0 ml/min Glucose 175 H (74-106) mg/dL Calcium 9.7 (8.5-10.1) mg/dL Total Bilirubin 0.4 (0.2-1.0) mg/dL AST 11 L (15-37) IU/L ALT 47 (14-63) IU/L Alkaline Phosphatase 98 (46-116) U/L Total Protein 7.6 (6.4-8.2) g/dL Albumin 3.9 (3.4-5.0) g/dL Globulin 3.7 (2.6-4.0) g/dL Albumin/Globulin Ratio 1.1 (0.9-1.6) Urine Color Urine Appearance Urine pH (5.0-8.0) Ur Specific [place] (1.001-1.035) Urine Protein (NEGATIVE) mg/dL Urine Glucose (UA) (NEGATIVE) mg/dL Urine Ketones (NEGATIVE) mg/dL Urine Occult Blood (NEGATIVE) Urine Nitrite (NEGATIVE) Urine Bilirubin (NEGATIVE) Urine Urobilinogen (<2.0) EU/dL Ur Leukocyte Esterase (NEGATIVE) 10/25/18 Range/Units 01:15 WBC (4.0-11.0) K/uL RBC (4.30-5.90) M/uL Hgb (12.0-16.0) g/dL Hct (36.0-46.0) % MCV (80.0-98.0) fL MCH (27.0-32.0) pg MCHC (31.0-37.0) g/dL RDW Std Deviation (28.0-62.0) fl RDW Coeff of Escobar (11.0-15.0) % Plt Count (150-400) K/uL MPV (7.40-12.00) fL Neut % (Auto) (48.0-80.0) % Lymph % (Auto) (16.0-40.0) % [place] % (Auto) (0.0-15.0) % Eos % (Auto) (0.0-7.0) % Baso % (Auto) (0.0-1.5) % Neut # (Auto) (1.4-5.7) K/uL Lymph # (Auto) (0.6-2.4) K/uL [place] # (Auto) (0.0-0.8) K/uL Eos # (Auto) (0.0-0.7) K/uL Baso # (Auto) (0.0-0.1) K/uL Nucleated RBC % /100WBC Nucleated RBCs # K/uL Lactate (0.20-2.00) mmol/L Sodium (136-145) mmol/L Potassium (3.5-5.1) mmol/L Chloride (98-107) mmol/L Carbon Dioxide (21.0-32.0) mmol/L BUN (7.0-18.0) mg/dL Creatinine (0.6-1.0) mg/dL Est Cr Clr Drug Dosing mL/min Estimated GFR (MDRD) ml/min Glucose (74-106) mg/dL Calcium (8.5-10.1) mg/dL Total Bilirubin (0.2-1.0) mg/dL AST (15-37) IU/L ALT (14-63) IU/L Alkaline Phosphatase (46-116) U/L Total Protein (6.4-8.2) g/dL Albumin (3.4-5.0) g/dL Globulin (2.6-4.0) g/dL Albumin/Globulin Ratio (0.9-1.6) Urine Color YELLOW Urine Appearance CLEAR Urine pH 5.0 (5.0-8.0) Ur Specific [place] <= 1.005 (1.001-1.035) Urine Protein NEGATIVE (NEGATIVE) mg/dL Urine Glucose (UA) 500 H (NEGATIVE) mg/dL Urine Ketones NEGATIVE (NEGATIVE) mg/dL Urine Occult Blood SMALL H (NEGATIVE) Urine Nitrite NEGATIVE (NEGATIVE) Urine Bilirubin NEGATIVE (NEGATIVE) Urine Urobilinogen 0.2 (<2.0) EU/dL Ur Leukocyte Esterase NEGATIVE (NEGATIVE) Meds: Medications Generic Name Dose Route Start Last Admin Trade Name Freq PRN Reason Stop Dose Admin Sodium Chloride 10 ml 10/24/18 23:05 Saline Flush FLUSH ASDIRECTED PRN Keep Vein Open Sodium Chloride 2.5 ml 10/24/18 23:05 Saline Flush FLUSH ASDIRECTED PRN Keep Vein Open Discontinued Medications Generic Name Dose Route Start Last Admin Trade Name Freq PRN Reason Stop Dose Admin Hydromorphone HCl 1 mg 10/24/18 23:05 10/24/18 23:35 Dilaudid IVPUSH 10/24/18 23:06 1 mg ONETIME ONE Administration Hydromorphone HCl 1 mg 10/25/18 00:51 10/25/18 01:01 Dilaudid IVPUSH 10/25/18 00:52 1 mg ONETIME ONE Administration Sodium Chloride 1,000 mls @ 999 mls/hr 10/24/18 23:05 10/24/18 23:31 Normal Saline IV 10/25/18 00:05 999 mls/hr STAT ONE Administration Iopamidol 100 ml 10/25/18 00:46 10/25/18 00:46 Isovue Multipack-370 (76%) IVPUSH 10/25/18 00:47 100 ml ONETIME STA Administration Ondansetron HCl 4 mg 10/24/18 23:05 10/24/18 23:33 Zofran IVPUSH 10/24/18 23:06 4 mg ONETIME ONE Administration Departure - Departure Time of Disposition: 01:47 Disposition: Home, Self-Care 01 Condition: Good Clinical Impression: Postoperative pain - Discharge Information Referrals: PCP,None [Primary Care Provider] - Forms: ED Department Discharge Additional Instructions: The following information is given to patients seen in the emergency department who are being discharged to home. This information is to outline your options for follow-up care. We provide all patients seen in our emergency department with a follow-up referral. The need for follow-up, as well as the timing and circumstances, are variable depending upon the specifics of your emergency department visit. If you don't have a primary care physician on staff, we will provide you with a referral. We always advise you to contact your personal physician following an emergency department visit to inform them of the circumstance of the visit and for follow-up with them and/or the need for any referrals to a consulting specialist. The emergency department will also refer you to a specialist when appropriate. This referral assures that you have the opportunity for followup care with a specialist. All of these measure are taken in an effort to provide you with optimal care, which includes your followup. Under all circumstances we always encourage you to contact your private physician who remains a resource for coordinating your care. When calling for followup care, please make the office aware that this follow-up is from your recent emergency room visit. If for any reason you are refused follow-up, please contact the [facility] emergency department at and ask to speak to the emergency department charge nurse. [facility] [address] [address] Push hydration and use the pain medication that you have. Please keep your appointment later today with Dr. Larsen. Return to ER as needed and as discussed. - My Orders Last 24 Hours: My Active Orders 10/24/18 23:04 Saline Lock Insert [OM.PC] Stat 10/24/18 23:05 Sodium Chloride 0.9% [Saline Flush] 10 ml FLUSH ASDIRECTED PRN Sodium Chloride 0.9% [Saline Flush] 2.5 ml FLUSH ASDIRECTED PRN 10/25/18 01:15 UA W/MICROSCOPIC [URIN] Stat - Assessment/Plan Last 24 Hours: My Active Orders 10/24/18 23:04 Saline Lock Insert [OM.PC] Stat 10/24/18 23:05 Sodium Chloride 0.9% [Saline Flush] 10 ml FLUSH ASDIRECTED PRN Sodium Chloride 0.9% [Saline Flush] 2.5 ml FLUSH ASDIRECTED PRN 10/25/18 01:15 UA W/MICROSCOPIC [URIN] Stat
[2018-10-25 00:07] LABS: BLOOD UREA NITROGEN,BUN 14 mg/dL (7.0-18.0); CARBON DIOXIDE,CO2 22.6 mmol/L (21.0-32.0); CHLORIDE,CL 102 mmol/L (98-107); GLUCOSE RANDOM 175 mg/dL (74-106); POTASSIUM,K 3.9 mmol/L (3.5-5.1); SODIUM,NA 139 mmol/L (136-145)
[2018-10-25] MEDS ORDERED: Iopamidol 755 MG/ML 500 ML Multipack Bottle IVPUSH STA (00:46)
[2018-10-25] MEDS ORDERED: HYDROmorphone 1 MG/ML Syringe IVPUSH ONE (00:51)
--- NOTE | 2018-10-25 01:06 | CT ---
INDICATION: Abdominal pain following hysterectomy 4 days ago TECHNIQUE: CT Abdomen and pelvis with i.v. contrast. Coronal and sagittal reformats were obtained. CONTRAST: 100 mL Isovue 370 COMPARISON: None FINDINGS: Lower chest: Unremarkable. Liver: Unremarkable. Spleen: Unremarkable. Pancreas: Unremarkable. Gallbladder: Unremarkable. Kidney: Excretion of contrast into the renal collecting systems and ureters are noted, which limits evaluation for the presence of stones. Adrenal: Unremarkable. Bowel: Unremarkable. Previous appendectomy noted with no significant appendiceal stump identified. A small fat containing umbilical hernia is noted. Vascular: Unremarkable. Lymph: Unremarkable. Peritoneum: Ill-defined fluid with mild enhancement of the peritoneum is seen in the surgical bed within the pelvis. No pneumoperitoneum is seen. No significant ascites is noted. Pelvis: The patient is status post prior hysterectomy. Small amount of gas is present in the bladder. Soft tissue: Unremarkable. Bone: Unremarkable for age. IMPRESSIONS: 1. Small amount of gas is present in the bladder. This is likely due to recent bladder instrumentation but in the absence of this history, a gas forming urinary tract infection should be considered. 2. Ill-defined fluid with mild enhancement of the peritoneum is seen in the surgical bed within the pelvis. Findings are most likely due to postoperative hematoma and edema. No circumscribed abscess is identified. Dictated by Landon Suarez MD @ 10/25/2018 1:04:56 AM Please note that all CT scans at this facility use dose modulation, iterative reconstruction, and/or weight-based dosing when appropriate to reduce radiation dose to as low as reasonably achievable. Dictated by: Landon Saurez MD @ 10/25/2018 01:05:13 (Electronically Signed)
[2018-10-25 01:52] VITALS: BP 122/72; PULSE 93
== END 2018-10-25 02:02 | disposition home or self-care (01) ==
LOC: MW.ED 22:40
DX: G89.18 Other acute postprocedural pain (principal); R10.32 Left lower quadrant pain; R10.31 Right lower quadrant pain; E10.9 Type 1 diabetes mellitus without complications; E66.9 Obesity, unspecified; F41.9 Anxiety disorder, unspecified; F32.9 Major depressive disorder, single episode, unspecified; Z90.710 Acquired absence of both cervix and uterus; Z88.8 Allergy status to other drugs, medicaments and biological substances; Z79.899 Other long term (current) drug therapy; Z90.49 Acquired absence of other specified parts of digestive tract; Z98.51 Tubal ligation status
CPT/HCPCS: 36415; 74177; 80053; 81001; 83605; 85025; 96361; 96374; 96375; 96376; 99284; J1170; J2405; J7040; Q9967

== ENCOUNTER 2019-04-27 08:43 | Emergency (ER) | payer OTHER ==
[2019-04-27] MEDS ORDERED: Sodium Chloride 0.9% 1,000 ML IV ONE (08:45)
--- NOTE | 2019-04-27 08:46 | EDM.PDOC ---
ED HPI GENERAL MEDICAL PROBLEM - General Stated Complaint: CHEST PAIN, BACK PAIN, NUMBNESS IN HANDS Time Seen by Provider: 04/27/19 08:45 Source of Information: Reports: Patient - History of Present Illness INITIAL COMMENTS - FREE TEXT/NARRATIVE: HISTORY AND PHYSICAL: History of present illness: [Patient presents with anterior chest wall pain worsened by left arm movement rates 5 out of 10 unable to reproduce with extension of the left arm as well as palpation along the latissimus dorsi on the left as well as infraspinatus and pectoralis major insertion no fever nausea vomiting chills sweats no shortness of breath headache dizziness palpitation no bowel or urine symptoms ] Review of systems: As per history of present illness and below otherwise all systems reviewed and negative. Past medical history: As per history of present illness and as reviewed below otherwise noncontributory. Surgical history: As per history of present illness and as reviewed below otherwise noncontributory. Social history: No reported history of drug or alcohol abuse. Family history: As per history of present illness and as reviewed below otherwise noncontributory. Physical exam: HEENT: Atraumatic, normocephalic, pupils reactive, negative for conjunctival pallor or scleral icterus, mucous membranes moist, throat clear, neck supple, nontender, trachea midline. Lungs: Clear to auscultation, breath sounds equal bilaterally, chest nontender. Heart: S1S2, regular, negative for clicks, rubs, or JVD. Abdomen: Soft, nondistended, nontender. Negative for masses or hepatosplenomegaly. Negative for costovertebral tenderness. Pelvis: Stable nontender. Genitourinary: Deferred. Rectal: Deferred. Extremities: Atraumatic, negative for cords or calf pain. Neurovascular unremarkable. Neuro: Awake, alert, oriented. Cranial nerves II through XII unremarkable. Cerebellum unremarkable. Motor and sensory unremarkable throughout. Exam nonfocal. 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 chest Pain Score (Numeric/FACES): 5 - Related Data Allergies Allergy/AdvReac Type Severity Reaction Status Date / Time metformin AdvReac Intermediate Nausea and Verified 04/27/19 08:52 Vomiting Home Meds: Home Meds Empagliflozin [Jardiance] 25 mg PO BEDTIME 10/16/18 [History] Insulin Glargine,Hum.Rec.Anlog [Lantus Solostar] 45 units SUBCUT BEDTIME [History] Insulin Lispro [Humalog Kwikpen U-100] 1 injection SUBCUT ASDIRECTED 10/16/18 [ History] Spironolactone [Aldactone] 25 mg PO DAILY 10/16/18 [History] Insulin Glargine,Hum.Rec.Anlog [Basaglar Kwikpen U-100] 50 units INJECT BEDTIME 04/27/19 [History] Past Medical History - Past Health History Medical/Surgical History: Denies Medical/Surgical History HEENT History: Reports: Other (See Below) Other HEENT History: Astigmatism Cardiovascular History: Reports: None Respiratory History: Reports: None Gastrointestinal History: Reports: None Genitourinary History: Reports: None [employer]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: 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, 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, Polycystic Ovaries , Musculoskeletal History: Reports: None Neurological History: Reports: None Psychiatric History: Reports: Anxiety, Depression Endocrine/Metabolic History: Reports: Diabetes, Type I, Obesity/BMI 30+ Hematologic History: Reports: None Immunologic History: Reports: None Oncologic (Cancer) History: Reports: None Dermatologic History: Reports: None - Infectious Disease History Infectious Disease History: Reports: None - Past Surgical History Head Surgeries/Procedures: Reports: None HEENT Surgical History: Reports: None Cardiovascular Surgical History: Reports: None Respiratory Surgical History: Reports: None GI Surgical History: Reports: Appendectomy Female Surgical History: Reports: 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, Hysterectomy, Tubal Ligation Endocrine Surgical History: Reports: None Neurological Surgical History: Reports: None Musculoskeletal Surgical History: Reports: None Oncologic Surgical History: Reports: None Dermatological Surgical History: Reports: None Social & Family History - Family History Family Medical History: Noncontributory OBGYN: Reports: Endocrine/Metabolic: Reports: Diabetes, Type I - Caffeine Use Caffeine Use: Reports: Soda ED ROS GENERAL - Review of Systems Review Of Systems: See Below ED EXAM, GENERAL - Physical Exam Exam: See Below Course - Vital Signs Last Recorded V/S: Last Vital Signs Temp 98.4 F 04/27/19 08:49 Pulse 84 04/27/19 08:49 Resp 18 04/27/19 08:49 BP 128/80 04/27/19 08:49 Pulse Ox 99 04/27/19 08:49 - Orders/Labs/Meds Orders: Active Orders 24 hr Category Date Time Status EKG Documentation Completion [RC] STAT Care 04/27/19 08:45 Active Chest 1V Frontal [CR] Stat Exams 04/27/19 08:45 Taken Ketorolac [Toradol] Med 04/27/19 09:45 Once 30 mg IVPUSH ONETIME ONE Medication Orders Ketorolac Tromethamine (Toradol) 30 mg IVPUSH ONETIME ONE Stop: 04/27/19 09:46 Labs: Laboratory Tests 04/27/19 04/27/19 04/27/19 Range/Units 09:00 09:00 09:00 WBC 6.92 (4.0-11.0) K/uL RBC 5.25 (4.30-5.90) M/uL Hgb 16.0 (12.0-16.0) g/dL Hct 45.8 (36.0-46.0) % MCV 87.2 (80.0-98.0) fL MCH 30.5 (27.0-32.0) pg MCHC 34.9 (31.0-37.0) g/dL RDW Std Deviation 42.3 (28.0-62.0) fl RDW Coeff of Escobar 13 (11.0-15.0) % Plt Count 335 (150-400) K/uL MPV 9.10 (7.40-12.00) fL Neut % (Auto) 46.6 L (48.0-80.0) % Lymph % (Auto) 45.4 H (16.0-40.0) % [place] % (Auto) 5.8 (0.0-15.0) % Eos % (Auto) 1.6 (0.0-7.0) % Baso % (Auto) 0.6 (0.0-1.5) % Neut # (Auto) 3.2 (1.4-5.7) K/uL Lymph # (Auto) 3.1 H (0.6-2.4) K/uL [place] # (Auto) 0.4 (0.0-0.8) K/uL Eos # (Auto) 0.1 (0.0-0.7) K/uL Baso # (Auto) 0.0 (0.0-0.1) K/uL Nucleated RBC % 0.0 /100WBC Nucleated RBCs # 0 K/uL INR 0.97 Sodium 137 (136-145) mmol/L Potassium 3.8 (3.5-5.1) mmol/L Chloride 103 (98-107) mmol/L Carbon Dioxide 21.7 (21.0-32.0) mmol/L BUN 10 (7.0-18.0) mg/dL Creatinine 0.7 (0.6-1.0) mg/dL Est Cr Clr Drug Dosing 125.04 mL/min Estimated GFR (MDRD) > 60.0 ml/min Glucose 162 H (74-106) mg/dL Calcium 8.8 (8.5-10.1) mg/dL Total Bilirubin 0.4 (0.2-1.0) mg/dL AST 18 (15-37) IU/L ALT 59 (14-63) IU/L Alkaline Phosphatase 101 (46-116) U/L Troponin I < 0.050 (0.000-0.056) ng/mL Total Protein 7.9 (6.4-8.2) g/dL Albumin 4.0 (3.4-5.0) g/dL Globulin 3.9 (2.6-4.0) g/dL Albumin/Globulin Ratio 1.0 (0.9-1.6) Lipase 274 (73-393) U/L Urine Color Urine Appearance Urine pH (5.0-8.0) Ur Specific [place] (1.001-1.035) Urine Protein (NEGATIVE) mg/dL Urine Glucose (UA) (NEGATIVE) mg/dL Urine Ketones (NEGATIVE) mg/dL Urine Occult Blood (NEGATIVE) Urine Nitrite (NEGATIVE) Urine Bilirubin (NEGATIVE) Urine Urobilinogen (<2.0) EU/dL Ur Leukocyte Esterase (NEGATIVE) 04/27/19 Range/Units 09:20 WBC (4.0-11.0) K/uL RBC (4.30-5.90) M/uL Hgb (12.0-16.0) g/dL Hct (36.0-46.0) % MCV (80.0-98.0) fL MCH (27.0-32.0) pg MCHC (31.0-37.0) g/dL RDW Std Deviation (28.0-62.0) fl RDW Coeff of [place]obar (11.0-15.0) % Plt Count (150-400) K/uL MPV (7.40-12.00) fL Neut % (Auto) (48.0-80.0) % Lymph % (Auto) (16.0-40.0) % [place] % (Auto) (0.0-15.0) % Eos % (Auto) (0.0-7.0) % Baso % (Auto) (0.0-1.5) % Neut # (Auto) (1.4-5.7) K/uL Lymph # (Auto) (0.6-2.4) K/uL [place] # (Auto) (0.0-0.8) K/uL Eos # (Auto) (0.0-0.7) K/uL Baso # (Auto) (0.0-0.1) K/uL Nucleated RBC % /100WBC Nucleated RBCs # K/uL INR Sodium (136-145) mmol/L Potassium (3.5-5.1) mmol/L Chloride (98-107) mmol/L Carbon Dioxide (21.0-32.0) mmol/L BUN (7.0-18.0) mg/dL Creatinine (0.6-1.0) mg/dL Est Cr Clr Drug Dosing mL/min Estimated GFR (MDRD) ml/min Glucose (74-106) mg/dL Calcium (8.5-10.1) mg/dL Total Bilirubin (0.2-1.0) mg/dL AST (15-37) IU/L ALT (14-63) IU/L Alkaline Phosphatase (46-116) U/L Troponin I (0.000-0.056) ng/mL Total Protein (6.4-8.2) g/dL Albumin (3.4-5.0) g/dL Globulin (2.6-4.0) g/dL Albumin/Globulin Ratio (0.9-1.6) Lipase (73-393) U/L Urine Color YELLOW Urine Appearance CLEAR Urine pH 5.5 (5.0-8.0) Ur Specific [place] >= 1.030 (1.001-1.035) Urine Protein NEGATIVE (NEGATIVE) mg/dL Urine Glucose (UA) >=1000 (NEGATIVE) mg/dL Urine Ketones NEGATIVE (NEGATIVE) mg/dL Urine Occult Blood NEGATIVE (NEGATIVE) Urine Nitrite NEGATIVE (NEGATIVE) Urine Bilirubin NEGATIVE (NEGATIVE) Urine Urobilinogen 0.2 (<2.0) EU/dL Ur Leukocyte Esterase NEGATIVE (NEGATIVE) Meds: Medications Generic Name Dose Route Start Last Admin Trade Name Freq PRN Reason Stop Dose Admin Ketorolac Tromethamine 30 mg 04/27/19 09:45 Toradol IVPUSH 04/27/19 09:46 ONETIME ONE Discontinued Medications Generic Name Dose Route Start Last Admin Trade Name Freq PRN Reason Stop Dose Admin Sodium Chloride 1,000 mls @ 999 mls/hr 04/27/19 08:45 04/27/19 09:04 Normal Saline IV 04/27/19 09:45 999 mls/hr STAT ONE Administration Departure - Departure Time of Disposition: 09:48 Disposition: Home, Self-Care 01 Condition: Good Clinical Impression: Muscle spasm - Discharge Information Referrals: PCP,Unknown [Primary Care Provider] - Additional Instructions: medication as prescribed Tylenol or ibuprofen heat Or ice whichever gains most benefit follow With primary care 2 weeks sooner as needed [facility] [address] [place] [address] The following information is given to patients seen in the emergency department who are being discharged to home. This information is to outline your options for follow-up care. We provide all patients seen in our emergency department with a follow-up referral. The need for follow-up, as well as the timing and circumstances, are variable depending upon the specifics of your emergency department visit. If you don't have a primary care physician on staff, we will provide you with a referral. We always advise you to contact your personal physician following an emergency department visit to inform them of the circumstance of the visit and for follow-up with them and/or the need for any referrals to a consulting specialist. The emergency department will also refer you to a specialist when appropriate. This referral assures that you have the opportunity for follow-up care with a specialist. All of these measure are taken in an effort to provide you with optimal care, which includes your follow-up. Under all circumstances we always encourage you to contact your private physician who remains a resource for coordinating your care. When calling for follow-up care, please make the office aware that this follow-up is from your recent emergency room visit. If for any reason you are refused follow-up, please contact the [facility] emergency department at and asked to speak to the emergency department charge nurse. Sepsis Event Note - Focused Exam Vital Signs: Vital Signs Temp Pulse Resp BP Pulse Ox 04/27/19 08:49 98.4 F 84 18 128/80 99 Date Exam was Performed: 04/27/19 Time Exam was Performed: 09:46 - My Orders Last 24 Hours: My Active Orders 04/27/19 08:45 EKG Documentation Completion [RC] STAT Chest 1V Frontal [CR] Stat 04/27/19 09:45 Ketorolac [Toradol] 30 mg IVPUSH ONETIME ONE - Assessment/Plan Last 24 Hours: My Active Orders 04/27/19 08:45 EKG Documentation Completion [RC] STAT Chest 1V Frontal [CR] Stat 04/27/19 09:45 Ketorolac [Toradol] 30 mg IVPUSH ONETIME ONE
[2019-04-27 09:31] LABS: BLOOD UREA NITROGEN,BUN 10 mg/dL (7.0-18.0); CARBON DIOXIDE,CO2 21.7 mmol/L (21.0-32.0); CHLORIDE,CL 103 mmol/L (98-107); GLUCOSE RANDOM 162 mg/dL (74-106); LIPASE 274 U/L (73-393); POTASSIUM,K 3.8 mmol/L (3.5-5.1); SODIUM,NA 137 mmol/L (136-145)
[2019-04-27] MEDS ORDERED: Ketorolac 30 MG/ML SDV IVPUSH ONE (09:45)
--- NOTE | 2019-04-27 10:14 | CR ---
Chest: Portable view of the chest was obtained. Comparison: Prior chest x-ray of 05/20/18. Heart size and mediastinum are normal. Lungs are clear. Bony structures are grossly intact. Impression: 1. Nothing acute is seen on portable chest x-ray. Diagnostic code #1 This report was dictated in Mountain Standard Time
[2019-04-27 10:15] VITALS: BP 128/72; PULSE 70
== END 2019-04-27 10:11 | disposition home or self-care (01) ==
LOC: MW.ED 08:43
DX: M62.838 Other muscle spasm (principal); F41.9 Anxiety disorder, unspecified; F32.9 Major depressive disorder, single episode, unspecified; E10.9 Type 1 diabetes mellitus without complications; E66.9 Obesity, unspecified; Z88.8 Allergy status to other drugs, medicaments and biological substances; Z79.899 Other long term (current) drug therapy
CPT/HCPCS: 71045; 80053; 81003; 83690; 84484; 85025; 85610; 93005; 96361; 96374; 99285; J1885; J7030; 99283

== ENCOUNTER 2020-03-23 08:52 | Emergency (ER) | payer BC, OTHER ==
--- NOTE | 2020-03-23 09:45 | EDM.PDOC ---
ED HPI GENERAL MEDICAL PROBLEM - General Chief Complaint: ENT Problem Stated Complaint: SORE THREAT, ACHES Time Seen by Provider: 03/23/20 09:13 Source of Information: Reports: Patient History Limitations: Reports: No Limitations - History of Present Illness INITIAL COMMENTS - FREE TEXT/NARRATIVE: Patient is a 29-year-old female presents today for sore throat. Pain states symptoms started a few days ago. Patient boyfriend is also in the ER with similar complaints. Patient states that she has had some pain with eating and drinking but still able tolerate solids and liquids. Patient denies any shortness of breath fevers chills. Patient did report her ketones were high in her urine at home but has not had any increased urination and blood sugar has been 120 on her monitor. Generalized Pain Score (Numeric/FACES): 3 - Related Data Allergies Allergy/AdvReac Type Severity Reaction Status Date / Time metformin AdvReac Intermediate Nausea and Verified 03/23/20 09:13 Vomiting Home Meds: Home Meds Empagliflozin [Jardiance] 25 mg PO BEDTIME 10/16/18 [History] Insulin Lispro [Humalog Kwikpen U-100] 1 injection SUBCUT ASDIRECTED 10/16/18 [History] Spironolactone [Aldactone] 25 mg PO DAILY 10/16/18 [History] Insulin Glargine,Hum.Rec.Anlog [Basaglar Kwikpen U-100] 50 units INJECT BEDTIME 04/27/19 [History] Past Medical History - Past Health History Medical/Surgical History: Denies Medical/Surgical History HEENT History: Reports: Other (See Below) Other HEENT History: Astigmatism Cardiovascular History: Reports: None Respiratory History: Reports: None Gastrointestinal History: Reports: None Genitourinary History: Reports: None 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: 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, 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, Polycystic Ovaries, Musculoskeletal History: Reports: None Neurological History: Reports: None Psychiatric History: Reports: Anxiety, Depression Endocrine/Metabolic History: Reports: Diabetes, Type I, Obesity/BMI 30+ Hematologic History: Reports: None Immunologic History: Reports: None Oncologic (Cancer) History: Reports: None Dermatologic History: Reports: None - Infectious Disease History Infectious Disease History: Reports: Chicken Pox - Past Surgical History Head Surgeries/Procedures: Reports: None HEENT Surgical History: Reports: None Cardiovascular Surgical History: Reports: None Respiratory Surgical History: Reports: None GI Surgical History: Reports: Appendectomy Female Surgical History: Reports: 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, Hysterectomy, Tubal Ligation Endocrine Surgical History: Reports: None Neurological Surgical History: Reports: None Musculoskeletal Surgical History: Reports: None Oncologic Surgical History: Reports: None Dermatological Surgical History: Reports: None Social & Family History - Family History Family Medical History: No Pertinent Family History OBGYN: Reports: Endocrine/Metabolic: Reports: Diabetes, Type I - Tobacco Use Tobacco Use Status *Q: Never Tobacco User - Caffeine Use Caffeine Use: Reports: None - Recreational Drug Use Recreational Drug Use: No ED ROS GENERAL - Review of Systems Review Of Systems: See Below Constitutional: Reports: No Symptoms HEENT: Reports: Throat Pain Respiratory: Reports: No Symptoms Cardiovascular: Reports: No Symptoms Endocrine: Reports: No Symptoms GI/Abdominal: Reports: No Symptoms : Reports: No Symptoms Musculoskeletal: Reports: No Symptoms Skin: Reports: No Symptoms Neurological: Reports: No Symptoms Psychiatric: Reports: No Symptoms Hematologic/Lymphatic: Reports: No Symptoms Immunologic: Reports: No Symptoms ED EXAM, GENERAL - Physical Exam Exam: See Below General Appearance: Alert, WD/WN Eye Exam: Bilateral Eye: EOMI, PERRL Throat/Mouth: Normal Teeth, Normal Gums. No: Normal Oropharynx, Dysphagia Respiratory/Chest: No Respiratory Distress, Lungs Clear Cardiovascular: Normal Peripheral Pulses, Regular Rate, Rhythm GI/Abdominal: Normal Bowel Sounds, Soft, Non-Tender Extremities: Normal Inspection Neurological: Alert, Oriented, Normal Cognition Lymphatic: Adenopathy Course - Vital Signs Last Recorded V/S: Last Vital Signs Temp 97.8 F 03/23/20 09:17 Pulse 89 03/23/20 10:11 Resp 18 03/23/20 09:17 BP 119/78 03/23/20 10:11 Pulse Ox 97 03/23/20 10:11 - Orders/Labs/Meds Orders: Active Orders 24 hr Category Date Time Status CULTURE STREP A CONFIRMATION [] Stat Lab 03/23/20 09:45 Results STREP SCRN A RAPID W CULT CONF [RM] Stat Lab 03/23/20 09:45 Results Labs: Laboratory Tests 03/23/20 03/23/20 03/23/20 Range/Units 09:44 09:44 09:44 WBC 7.76 (4.0-11.0) K/uL RBC 5.07 (4.30-5.90) M/uL Hgb 15.2 (12.0-16.0) g/dL Hct 45.1 (36.0-46.0) % MCV 89.0 (80.0-98.0) fL MCH 30.0 (27.0-32.0) pg MCHC 33.7 (31.0-37.0) g/dL RDW Std Deviation 42.2 (28.0-62.0) fl RDW Coeff of Escobar 13 (11.0-15.0) % Plt Count 348 (150-400) K/uL MPV 9.10 (7.40-12.00) fL Neut % (Auto) 53.9 (48.0-80.0) % Lymph % (Auto) 39.4 (16.0-40.0) % [place] % (Auto) 4.6 (0.0-15.0) % Eos % (Auto) 1.5 (0.0-7.0) % Baso % (Auto) 0.6 (0.0-1.5) % Neut # (Auto) 4.2 (1.4-5.7) K/uL Lymph # (Auto) 3.1 H (0.6-2.4) K/uL [place] # (Auto) 0.4 (0.0-0.8) K/uL Eos # (Auto) 0.1 (0.0-0.7) K/uL Baso # (Auto) 0.1 (0.0-0.1) K/uL Nucleated RBC % 0.0 /100WBC Nucleated RBCs # 0 K/uL Sodium 136 (136-145) mmol/L Potassium 4.1 (3.5-5.1) mmol/L Chloride 104 (98-107) mmol/L Carbon Dioxide 23.2 (21.0-32.0) mmol/L BUN 11 (7.0-18.0) mg/dL Creatinine 0.7 (0.6-1.0) mg/dL Est Cr Clr Drug Dosing 128.23 mL/min Estimated GFR (MDRD) > 60.0 ml/min Glucose 106 (74-106) mg/dL Calcium 9.2 (8.5-10.1) mg/dL Total Bilirubin 0.2 (0.2-1.0) mg/dL AST 25 (15-37) IU/L ALT 55 (14-63) IU/L Alkaline Phosphatase 98 (46-116) U/L Total Protein 7.5 (6.4-8.2) g/dL Albumin 3.9 (3.4-5.0) g/dL Globulin 3.6 (2.6-4.0) g/dL Albumin/Globulin Ratio 1.1 (0.9-1.6) Urine Color Urine Appearance Urine pH (5.0-8.0) Ur Specific [place] (1.001-1.035) Urine Protein (NEGATIVE) mg/dL Urine Glucose (UA) (NEGATIVE) mg/dL Urine Ketones (NEGATIVE) mg/dL Urine Occult Blood (NEGATIVE) Urine Nitrite (NEGATIVE) Urine Bilirubin (NEGATIVE) Urine Urobilinogen (<2.0) EU/dL Ur Leukocyte Esterase (NEGATIVE) Urine HCG, Qual (NEGATIVE) Monoscreen NEGATIVE (NEG) 03/23/20 03/23/20 Range/Units 10:00 10:00 WBC (4.0-11.0) K/uL RBC (4.30-5.90) M/uL Hgb (12.0-16.0) g/dL Hct (36.0-46.0) % MCV (80.0-98.0) fL MCH (27.0-32.0) pg MCHC (31.0-37.0) g/dL RDW Std Deviation (28.0-62.0) fl RDW Coeff of Escobar (11.0-15.0) % Plt Count (150-400) K/uL MPV (7.40-12.00) fL Neut % (Auto) (48.0-80.0) % Lymph % (Auto) (16.0-40.0) % [place] % (Auto) (0.0-15.0) % Eos % (Auto) (0.0-7.0) % Baso % (Auto) (0.0-1.5) % Neut # (Auto) (1.4-5.7) K/uL Lymph # (Auto) (0.6-2.4) K/uL [place] # (Auto) (0.0-0.8) K/uL Eos # (Auto) (0.0-0.7) K/uL Baso # (Auto) (0.0-0.1) K/uL Nucleated RBC % /100WBC Nucleated RBCs # K/uL Sodium (136-145) mmol/L Potassium (3.5-5.1) mmol/L Chloride (98-107) mmol/L Carbon Dioxide (21.0-32.0) mmol/L BUN (7.0-18.0) mg/dL Creatinine (0.6-1.0) mg/dL Est Cr Clr Drug Dosing mL/min Estimated GFR (MDRD) ml/min Glucose (74-106) mg/dL Calcium (8.5-10.1) mg/dL Total Bilirubin (0.2-1.0) mg/dL AST (15-37) IU/L ALT (14-63) IU/L Alkaline Phosphatase (46-116) U/L Total Protein (6.4-8.2) g/dL Albumin (3.4-5.0) g/dL Globulin (2.6-4.0) g/dL Albumin/Globulin Ratio (0.9-1.6) Urine Color YELLOW Urine Appearance CLEAR Urine pH 5.5 (5.0-8.0) Ur Specific [place] 1.025 (1.001-1.035) Urine Protein NEGATIVE (NEGATIVE) mg/dL Urine Glucose (UA) >=1000 (NEGATIVE) mg/dL Urine Ketones NEGATIVE (NEGATIVE) mg/dL Urine Occult Blood NEGATIVE (NEGATIVE) Urine Nitrite NEGATIVE (NEGATIVE) Urine Bilirubin NEGATIVE (NEGATIVE) Urine Urobilinogen 0.2 (<2.0) EU/dL Ur Leukocyte Esterase NEGATIVE (NEGATIVE) Urine HCG, Qual NEGATIVE (NEGATIVE) Monoscreen (NEG) - Re-Assessments/Exams Free Text/Narrative Re-Assessment/Exam: 03/23/20 10:27 And strep and mono test both negative. Likely has viral pharyngitis will discharge home with symptomatic treatment. Departure - Departure Time of Disposition: 10:27 Disposition: Home, Self-Care 01 Condition: Good Clinical Impression: Acute viral pharyngitis - Discharge Information *PRESCRIPTION DRUG MONITORING PROGRAM REVIEWED*: Not Applicable *COPY OF PRESCRIPTION DRUG MONITORING REPORT IN PATIENT CARLOS: Not Applicable Instructions: Pharyngitis, [id number] Referrals: Ryan Ferrari MD [Primary Care Provider] - Forms: ED Department Discharge Additional Instructions: The following information is given to patients seen in the emergency department who are being discharged to home. This information is to outline your options for follow-up care. We provide all patients seen in our emergency department with a follow-up referral. The need for follow-up, as well as the timing and circumstances, are variable depending upon the specifics of your emergency department visit. If you don't have a primary care physician on staff, we will provide you with a referral. We always advise you to contact your personal physician following an emergency department visit to inform them of the circumstance of the visit and for follow-up with them and/or the need for any referrals to a consulting specialist. The emergency department will also refer you to a specialist when appropriate. This referral assures that you have the opportunity for follow-up care with a specialist. All of these measure are taken in an effort to provide you with optimal care, which includes your follow-up. Under all circumstances we always encourage you to contact your private physician who remains a resource for coordinating your care. When calling for follow-up care, please make the office aware that this follow-up is from your recent emergency room visit. If for any reason you are refused follow-up, please contact the [facility] Emergency Department at and asked to speak to the emergency department charge nurse. Please follow up with your primary care physician. If you do not have a primary care physician, see below: [facility] [address] [place] [id number] [facility] [address] [place] [id number] Please follow with Your primary care physician as needed. Sepsis Event Note (ED) - Evaluation Sepsis Screening Result: No Definite Risk - Focused Exam Vital Signs: Vital Signs Temp Pulse Resp BP Pulse Ox 03/23/20 10:11 89 119/78 97 03/23/20 09:17 97.8 F 92 18 118/62 98 - My Orders Last 24 Hours: My Active Orders 03/23/20 09:45 CULTURE STREP A CONFIRMATION [RM] Stat STREP SCRN A RAPID W CULT CONF [RM] Stat - Assessment/Plan Last 24 Hours: My Active Orders 03/23/20 09:45 CULTURE STREP A CONFIRMATION [RM] Stat STREP SCRN A RAPID W CULT CONF [RM] Stat Assessment:: Patient is a 29-year-old female who presents today for sore throat. Patient also has concerns that she ketones were high on a urine at home. Will obtain labs strep swab and reassess.
[2020-03-23 10:16] LABS: BLOOD UREA NITROGEN,BUN 11 mg/dL (7.0-18.0); CARBON DIOXIDE,CO2 23.2 mmol/L (21.0-32.0); CHLORIDE,CL 104 mmol/L (98-107); GLUCOSE RANDOM 106 mg/dL (74-106); POTASSIUM,K 4.1 mmol/L (3.5-5.1); SODIUM,NA 136 mmol/L (136-145)
[2020-03-23 12:04] VITALS: BP 108/66; PULSE 86
== END 2020-03-23 10:36 | disposition home or self-care (01) ==
LOC: MW.ED 08:52
DX: J02.9 Acute pharyngitis, unspecified (principal); E10.9 Type 1 diabetes mellitus without complications; E66.9 Obesity, unspecified; Z68.33 Body mass index [BMI] 33.0-33.9, adult; Z88.8 Allergy status to other drugs, medicaments and biological substances
CPT/HCPCS: 80053; 81003; 81025; 85025; 86308; 87081; 87880-QW; 99282; 99283

== ENCOUNTER 2020-06-10 09:57 | Emergency (ER) | payer BC ==
[2020-06-10] MEDS ORDERED: Sodium Chloride 0.9% 2.5 ML Syringe FLUSH PRN (10:18)
[2020-06-10] MEDS ORDERED: Sodium Chloride 0.9% 10 ML Syringe FLUSH PRN (10:18)
--- NOTE | 2020-06-10 10:29 | PCM.EKG ---
#1 Interpretation EKG Date: 06/10/20 Time: 10:25 Rhythm: NSR Rate (Beats/Min): 84 ST-T: Normal
--- NOTE | 2020-06-10 10:32 | EDM.PDOC ---
ED HPI GENERAL MEDICAL PROBLEM - General Chief Complaint: General Stated Complaint: POSSIBLY INHALED OBJECT Time Seen by Provider: 06/10/20 09:59 Source of Information: Reports: Patient History Limitations: Reports: No Limitations - History of Present Illness INITIAL COMMENTS - FREE TEXT/NARRATIVE: HISTORY AND PHYSICAL: History of present illness: The patient is a 29-year-old female who presents to the emergency room with complaints of cough, fatigue, shortness of breath, a left frontal headache with left eye blurred vision after choking on a piece of popcorn on Tuesday evening. She is able to eat and drink without difficulty. She has no drooling. No stridor noted. She states she is experiencing chest pain upon exertion. She has mild photophobia, no phonophobia, and had not had vomiting. The patient states she attempted to go to the gym yesterday but was too fatigued became short of breath and just could not do any workout after about 5 minutes. She is a type I di abetic. Her blood sugars normally run under 100 and her last A1c was 5. Since Tuesday her blood sugar has been running 200, in the ED this am it was 136. She states that she has had HARRIS in the past but nothing like this HARRIS and never with vision changes. Denies any medication changes. Patient denies any fever, chills, syncope or near syncope. Denies any back pain. Denies any abdominal pain, nausea, vomiting, diarrhea, constipation or dysuria. Has not noted any blood in urine or stool. Review of systems: As per history of present illness and below otherwise all systems reviewed and negative. Past medical history: As per history of present illness and as reviewed below otherwise noncontributory. Surgical history: As per history of present illness and as reviewed below otherwise noncontributory. Social history: See social history for further information Family history: As per history of present illness and as reviewed below otherwise noncontributory. Physical exam: General: Well developed and well nourished. Alert and orientated x 3. Nontoxic in appearance and in no acute distress. Vital signs are stable and have been reviewed by me. Nursing notes were reviewed. HEENT: Atraumatic, normocephalic, pupils equal and reactive bilaterally, negative for conjunctival pallor or scleral icterus, mucous membranes moist, TMs normal bilaterally, throat with mild redness, neck supple, nontender, trachea midline. No drooling or trismus noted. No meningeal signs. No hot potato voice noted. Lungs: Clear to auscultation bilaterally. No wheezes, rales, or rhonchi. No stri leno noted. Infrequent dry cough noted. Chest nontender. Normal work of breathing, no accessory muscles used. Heart: S1S2, regular rate and rhythm without overt murmur, gallops, or rubs. No JVD. No peripheral edema Abdomen: Soft, nondistended, nontender. Normoactive bowel sounds. Negative for masses or costovertebral tenderness. Skin: Intact, warm, dry. No lesions or rashes noted. Hematologic: No petechiae or purpra. Mucosa appropriate color and normal nail bed color and refill. Extremities: Atraumatic, moves all extremities per self without difficulty or deficits, negative for cords or calf pain. Neurovascular unremarkable. Neuro: Awake, alert, oriented. Cranial nerves II through XII unremarkable. Cerebellum unremarkable. Motor and sensory unremarkable throughout. Exam nonfocal. Psychiatric: Mood and affect are appropriate. Normal thought process. Answering questions appropriately. Notes: *This patient was seen and evaluated during the 2019 SARS-CoV-2 novel coronavirus pandemic period. Community viral transmission is ongoing at time of this encounter and the emergency department is operating under pandemic response procedures. After discussion and exam the patient is agreeable to CBC CMP, COVID, chest x- ray, EKG, troponin, test, UA, strep, CT. The patient is able to read comfortably in room. CBC - neg, CMP - glucose 193, COVID - negative, CXR - Radilogist impression: No sign of acute disease., EKG - NSR, troponin, test - neg, UA - neg, strep, CT per Radiologist reading: Unremarkable noncontrast head CT . I will give saline, Toradol and zofran for treatment of her migraine. Patient is informed of treatment plan and is agreeable. Patient feels as if her HARRIS has improved and her left blurred vision is resolved post me dication. I will discharge the patient home. I have talked with the patient about today's findings, in addition to providing specific details for plan of care. Reassessment at the time of disposition demonstrates that the patient is in no acute distress. The patient is stable for discharge, counseling was provided and we discussed in great detail signs and symptoms that would prompt them to return to the Emergency Department. Medication, follow up and supportive care measures were reviewed and discussed. Voices understanding and is agreeable to plan of care. Denies any further questions or concerns at this time. Diagnostics: CBC CMP, COVID, chest x-ray, EKG, troponin, test, UA, strep, CT. Therapeutics: IV fluids, Toradol, Zofran Impression: Migraine Fatigue Plan: 1. You were evaluated today on an emergent basis. Your lab work including your COVID, chest x-ray, head CT were normal. You are diagnosed with a migraine. Be sure to follow up with your primary care provider. Monitor your glucose closely. If you become short of breath or increase chest discomfort please return to the emergency department. You can attempt Tums for any heart burn discomfort. Rest today. 2. You can alternate Tylenol and ibuprofen as needed for pain and fever management. 3. We encourage you to follow up with your primary care provider and/or recommended specialist in the next few days for re-evaluation and further care/management. 4. If your symptoms should worsen, new symptoms develop or any of the signs and symptoms we discussed should arise please return to the emergency room or call 911 (if needed). Definitive disposition and diagnosis as appropriate pending reevaluation and review of above. headache/chest Pain Score (Numeric/FACES): 7 - Related Data Allergies Allergy/AdvReac Type Severity Reaction Status Date / Time metformin AdvReac Intermediate Nausea and Verified 06/10/20 10:06 Vomiting Home Meds: Home Meds Empagliflozin [Jardiance] 25 mg PO BEDTIME 10/16/18 [History] Insulin Lispro [Humalog Kwikpen U-100] 1 injection SUBCUT ASDIRECTED 10/16/18 [History] Spironolactone [Aldactone] 25 mg PO DAILY 10/16/18 [History] Insulin Glargine,Hum.Rec.Anlog [Basaglar Kwikpen U-100] 50 units INJECT BEDTIME 04/27/19 [History] Semaglutide [Ozempic] 1 dose INJECT ASDIRECTED 06/10/20 [History] Past Medical History - Past Health History Medical/Surgical History: Denies Medical/Surgical History HEENT History: Reports: Other (See Below) Other HEENT History: Astigmatism Cardiovascular History: Reports: None Respiratory History: Reports: None Gastrointestinal History: Reports: None Genitourinary History: Reports: None [employer]ATOR History: Reports: 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, 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, Polycystic Ovaries, Musculoskeletal History: Reports: None Neurological History: Reports: None Psychiatric History: Reports: Anxiety, Depression Endocrine/Metabolic History: Reports: Diabetes, Type I, Obesity/BMI 30+ Hematologic History: Reports: None Immunologic History: Reports: None Oncologic (Cancer) History: Reports: None Dermatologic History: Reports: None - Infectious Disease History Infectious Disease History: Reports: Chicken Pox - Past Surgical History Head Surgeries/Procedures: Reports: None HEENT Surgical History: Reports: None Cardiovascular Surgical History: Reports: None Respiratory Surgical History: Reports: None GI Surgical History: Reports: Appendectomy Female Surgical History: Reports: 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, Hysterectomy, Tubal Ligation Endocrine Surgical History: Reports: None Neurological Surgical History: Reports: None Musculoskeletal Surgical History: Reports: None Oncologic Surgical History: Reports: None Dermatological Surgical History: Reports: None Social & Family History - Family History Family Medical History: No Pertinent Family History OBGYN: Reports: Endocrine/Metabolic: Reports: Diabetes, Type I - Tobacco Use Tobacco Use Status *Q: Never Tobacco User - Caffeine Use Caffeine Use: Reports: Tea - Recreational Drug Use Recreational Drug Use: No ED ROS GENERAL - Review of Systems Review Of Systems: Comprehensive ROS is negative, except as noted in HPI. ED EXAM, GENERAL - Physical Exam Exam: See Below (See dictation) Course - Vital Signs Last Recorded V/S: Last Vital Signs Temp 98.2 F 06/10/20 10:13 Pulse 81 06/10/20 12:34 Resp 16 06/10/20 12:34 BP 120/63 06/10/20 12:34 Pulse Ox 95 06/10/20 12:34 - Orders/Labs/Meds Orders: Active Orders 24 hr Category Date Time Status EKG Documentation Completion [RC] STAT Care 06/10/20 10:17 Active Sodium Chloride 0.9% [Normal Saline] 1,000 ml Med 06/10/20 12:10 Active IV .BOLUS Sodium Chloride 0.9% [Saline Flush] Med 06/10/20 10:18 Active 10 ml FLUSH ASDIRECTED PRN Sodium Chloride 0.9% [Saline Flush] Med 06/10/20 10:18 Active 2.5 ml FLUSH ASDIRECTED PRN Saline Lock Insert [OM.PC] Stat Oth 06/10/20 10:18 Ordered Medication Orders Sodium Chloride (Normal Saline) 1,000 mls @ 999 mls/hr IV .BOLUS ONE Stop: 06/10/20 13:10 Last Admin: 06/10/20 12:31 Dose: 999 mls/hr Documented by: [id number] Sodium Chloride (Sodium Chloride 0.9% 10 Ml Syringe) 10 ml FLUSH ASDIRECTED PRN PRN Reason: Keep Vein Open Last Admin: 06/10/20 10:24 Dose: 10 ml Documented by: ANGELIA Sodium Chloride (Sodium Chloride 0.9% 2.5 Ml Syringe) 2.5 ml FLUSH ASDIRECTED PRN PRN Reason: Keep Vein Open Last Admin: 06/10/20 10:24 Dose: 2.5 ml Documented by: ANGELIA Labs: Laboratory Tests 06/10/20 06/10/20 06/10/20 Range/Units 10:32 10:32 10:32 WBC 9.89 (4.0-11.0) K/uL RBC 4.92 (4.30-5.90) M/uL Hgb 15.2 (12.0-16.0) g/dL Hct 43.9 (36.0-46.0) % MCV 89.2 (80.0-98.0) fL MCH 30.9 (27.0-32.0) pg MCHC 34.6 (31.0-37.0) g/dL RDW Std Deviation 42.9 (28.0-62.0) fl RDW Coeff of Escobar 13 (11.0-15.0) % Plt Count 360 (150-400) K/uL MPV 9.20 (7.40-12.00) fL Neut % (Auto) 57.9 (48.0-80.0) % Lymph % (Auto) 35.3 (16.0-40.0) % [place] % (Auto) 4.3 (0.0-15.0) % Eos % (Auto) 1.9 (0.0-7.0) % Baso % (Auto) 0.6 (0.0-1.5) % Neut # (Auto) 5.7 (1.4-5.7) K/uL Lymph # (Auto) 3.5 H (0.6-2.4) K/uL [place] # (Auto) 0.4 (0.0-0.8) K/uL Eos # (Auto) 0.2 (0.0-0.7) K/uL Baso # (Auto) 0.1 (0.0-0.1) K/uL Nucleated RBC % 0.0 /100WBC Nucleated RBCs # 0 K/uL Sodium 139 (136-145) mmol/L Potassium 3.7 (3.5-5.1) mmol/L Chloride 104 (98-107) mmol/L Carbon Dioxide 20.9 L (21.0-32.0) mmol/L BUN 17 (7.0-18.0) mg/dL Creatinine 0.8 (0.6-1.0) mg/dL Est Cr Clr Drug Dosing 108.44 mL/min Estimated GFR (MDRD) > 60.0 ml/min Glucose 193 H (74-106) mg/dL Calcium 8.7 (8.5-10.1) mg/dL Total Bilirubin 0.3 (0.2-1.0) mg/dL AST 14 L (15-37) IU/L ALT 53 (14-63) IU/L Alkaline Phosphatase 116 (46-116) U/L Troponin I (0.000-0.056) ng/mL Total Protein 7.8 (6.4-8.2) g/dL Albumin 3.8 (3.4-5.0) g/dL Globulin 4.0 (2.6-4.0) g/dL Albumin/Globulin Ratio 0.9 (0.9-1.6) HCG, Qual NEGATIVE (NEG) Urine Color Urine Appearance Urine pH (5.0-8.0) Ur Specific [place] (1.001-1.035) Urine Protein (NEGATIVE) mg/dL Urine Glucose (UA) (NEGATIVE) mg/dL Urine Ketones (NEGATIVE) mg/dL Urine Occult Blood (NEGATIVE) Urine Nitrite (NEGATIVE) Urine Bilirubin (NEGATIVE) Urine Urobilinogen (<2.0) EU/dL Ur Leukocyte Esterase (NEGATIVE) Urine RBC (0-2/HPF) Urine WBC (0-5/HPF) Ur Epithelial Cells (NONE-FEW) Urine Bacteria (NEGATIVE) Urine Mucus (NONE-MOD) SARS-CoV-2 RNA (ALEC) (NEGATIVE) Group A Strep (PCR) (NOT DETECT) 06/10/20 06/10/20 06/10/20 Range/Units 10:32 10:40 10:41 WBC (4.0-11.0) K/uL RBC (4.30-5.90) M/uL Hgb (12.0-16.0) g/dL Hct (36.0-46.0) % MCV (80.0-98.0) fL MCH (27.0-32.0) pg MCHC (31.0-37.0) g/dL RDW Std Deviation (28.0-62.0) fl RDW Coeff of Escobar (11.0-15.0) % Plt Count (150-400) K/uL MPV (7.40-12.00) fL Neut % (Auto) (48.0-80.0) % Lymph % (Auto) (16.0-40.0) % [place] % (Auto) (0.0-15.0) % Eos % (Auto) (0.0-7.0) % Baso % (Auto) (0.0-1.5) % Neut # (Auto) (1.4-5.7) K/uL Lymph # (Auto) (0.6-2.4) K/uL [place] # (Auto) (0.0-0.8) K/uL Eos # (Auto) (0.0-0.7) K/uL Baso # (Auto) (0.0-0.1) K/uL Nucleated RBC % /100WBC Nucleated RBCs # K/uL Sodium (136-145) mmol/L Potassium (3.5-5.1) mmol/L Chloride (98-107) mmol/L Carbon Dioxide (21.0-32.0) mmol/L BUN (7.0-18.0) mg/dL Creatinine (0.6-1.0) mg/dL Est Cr Clr Drug Dosing mL/min Estimated GFR (MDRD) ml/min Glucose (74-106) mg/dL Calcium (8.5-10.1) mg/dL Total Bilirubin (0.2-1.0) mg/dL AST (15-37) IU/L ALT (14-63) IU/L Alkaline Phosphatase (46-116) U/L Troponin I < 0.050 (0.000-0.056) ng/mL Total Protein (6.4-8.2) g/dL Albumin (3.4-5.0) g/dL Globulin (2.6-4.0) g/dL Albumin/Globulin Ratio (0.9-1.6) HCG, Qual (NEG) Urine Color YELLOW Urine Appearance CLEAR Urine pH 5.0 (5.0-8.0) Ur Specific [place] 1.025 (1.001-1.035) Urine Protein NEGATIVE (NEGATIVE) mg/dL Urine Glucose (UA) >=1000 (NEGATIVE) mg/dL Urine Ketones NEGATIVE (NEGATIVE) mg/dL Urine Occult Blood TRACE-INTACT H (NEGATIVE) Urine Nitrite NEGATIVE (NEGATIVE) Urine Bilirubin NEGATIVE (NEGATIVE) Urine Urobilinogen 0.2 (<2.0) EU/dL Ur Leukocyte Esterase NEGATIVE (NEGATIVE) Urine RBC 0-2 (0-2/HPF) Urine WBC 0-3 (0-5/HPF) Ur Epithelial Cells FEW (NONE-FEW) Urine Bacteria 2+ H (NEGATIVE) Urine Mucus LIGHT (NONE-MOD) SARS-CoV-2 RNA (ALEC) (NEGATIVE) Group A Strep (PCR) NOT DETECTED (NOT DETECT) 06/10/20 Range/Units 11:48 WBC (4.0-11.0) K/uL RBC (4.30-5.90) M/uL Hgb (12.0-16.0) g/dL Hct (36.0-46.0) % MCV (80.0-98.0) fL MCH (27.0-32.0) pg MCHC (31.0-37.0) g/dL RDW Std Deviation (28.0-62.0) fl RDW Coeff of Escobar (11.0-15.0) % Plt Count (150-400) K/uL MPV (7.40-12.00) fL Neut % (Auto) (48.0-80.0) % Lymph % (Auto) (16.0-40.0) % [place] % (Auto) (0.0-15.0) % Eos % (Auto) (0.0-7.0) % Baso % (Auto) (0.0-1.5) % Neut # (Auto) (1.4-5.7) K/uL Lymph # (Auto) (0.6-2.4) K/uL [place] # (Auto) (0.0-0.8) K/uL Eos # (Auto) (0.0-0.7) K/uL Baso # (Auto) (0.0-0.1) K/uL Nucleated RBC % /100WBC Nucleated RBCs # K/uL Sodium (136-145) mmol/L Potassium (3.5-5.1) mmol/L Chloride (98-107) mmol/L Carbon Dioxide (21.0-32.0) mmol/L BUN (7.0-18.0) mg/dL Creatinine (0.6-1.0) mg/dL Est Cr Clr Drug Dosing mL/min Estimated GFR (MDRD) ml/min Glucose (74-106) mg/dL Calcium (8.5-10.1) mg/dL Total Bilirubin (0.2-1.0) mg/dL AST (15-37) IU/L ALT (14-63) IU/L Alkaline Phosphatase (46-116) U/L Troponin I (0.000-0.056) ng/mL Total Protein (6.4-8.2) g/dL Albumin (3.4-5.0) g/dL Globulin (2.6-4.0) g/dL Albumin/Globulin Ratio (0.9-1.6) HCG, Qual (NEG) Urine Color Urine Appearance Urine pH (5.0-8.0) Ur Specific [place] (1.001-1.035) Urine Protein (NEGATIVE) mg/dL Urine Glucose (UA) (NEGATIVE) mg/dL Urine Ketones (NEGATIVE) mg/dL Urine Occult Blood (NEGATIVE) Urine Nitrite (NEGATIVE) Urine Bilirubin (NEGATIVE) Urine Urobilinogen (<2.0) EU/dL Ur Leukocyte Esterase (NEGATIVE) Urine RBC (0-2/HPF) Urine WBC (0-5/HPF) Ur Epithelial Cells (NONE-FEW) Urine Bacteria (NEGATIVE) Urine Mucus (NONE-MOD) SARS-CoV-2 RNA (ALEC) NEGATIVE (NEGATIVE) Group A Strep (PCR) (NOT DETECT) Meds: Medications Generic Name Dose Route Start Last Admin Trade Name Freq PRN Reason Stop Dose Admin Sodium Chloride 1,000 mls @ 999 mls/hr 06/10/20 12:10 06/10/20 12:31 Normal Saline IV 06/10/20 13:10 999 mls/hr .BOLUS ONE Administration Sodium Chloride 10 ml 06/10/20 10:18 06/10/20 10:24 Sodium Chloride 0.9% 10 Ml Syringe FLUSH 10 ml ASDIRECTED PRN Administration Keep Vein Open Sodium Chloride 2.5 ml 06/10/20 10:18 06/10/20 10:24 Sodium Chloride 0.9% 2.5 Ml Syringe FLUSH 2.5 ml ASDIRECTED PRN Administration Keep Vein Open Discontinued Medications Generic Name Dose Route Start Last Admin Trade Name Freq PRN Reason Stop Dose Admin Ketorolac Tromethamine 30 mg 06/10/20 12:22 06/10/20 12:31 Ketorolac 30 Mg/Ml Sdv IVPUSH 06/10/20 12:23 30 mg ONETIME ONE Administration Metoclopramide HCl 10 mg 06/10/20 12:10 06/10/20 12:25 Metoclopramide 10 Mg/2 Ml Sdv IVPUSH 06/10/20 12:11 Not Given ONETIME ONE Ondansetron HCl 4 mg 06/10/20 12:12 06/10/20 12:31 Ondansetron 4 Mg/2 Ml Sdv IVPUSH 06/10/20 12:13 4 mg ONETIME ONE Administration Departure - Departure Time of Disposition: 12:54 Disposition: Home, Self-Care 01 Condition: Good Clinical Impression: Migraine Qualifiers: Migraine type: without aura Fatigue Qualifiers: Fatigue type: unspecified Qualified Code(s): R53.83 - Other fatigue - Discharge Information *PRESCRIPTION DRUG MONITORING PROGRAM REVIEWED*: Not Applicable *COPY OF PRESCRIPTION DRUG MONITORING REPORT IN PATIENT CARLOS: Not Applicable Instructions: Migraine Headache, [id number] Referrals: Ryan Ferrari MD [Primary Care Provider] - Forms: ED Department Discharge Additional Instructions: The following information is given to patients seen in the emergency department who are being discharged to home. This information is to outline your options for follow-up care. We provide all patients seen in our emergency department with a follow-up referral. The need for follow-up, as well as the timing and circumstances, are variable depending upon the specifics of your emergency department visit. If you don't have a primary care physician on staff, we will provide you with a referral. We always advise you to contact your personal physician following an emergency department visit to inform them of the circumstance of the visit and for follow-up with them and/or the need for any referrals to a consulting specialist. The emergency department will also refer you to a specialist when appropriate. This referral assures that you have the opportunity for follow-up care with a specialist. All of these measure are taken in an effort to provide you with optimal care, which includes your follow-up. Under all circumstances we always encourage you to contact your private physician who remains a resource for coordinating your care. When calling for follow-up care, please make the office aware that this follow-up is from your recent emergency room visit. If for any reason you are refused follow-up, please contact the [facility] Emergency Department at and asked to speak to the emergency department charge nurse. [facility] - Primary Care [address] [place] [id number] [place] [address] Plan: 1. You were evaluated today on an emergent basis. Your lab work including your COVID, chest x-ray, head CT were normal. You are diagnosed with a migraine. Be sure to follow up with your primary care provider. Monitor your glucose closely. If you become short of breath or increase chest discomfort please return to the emergency department. You can attempt Tums for any heart burn discomfort. Rest today. 2. You can alternate Tylenol and ibuprofen as needed for pain and fever management. 3. We encourage you to follow up with your primary care provider and/or recommended specialist in the next few days for re-evaluation and further care/management. 4. If your symptoms should worsen, new symptoms develop or any of the signs and symptoms we discussed should arise please return to the emergency room or call 911 (if needed). Sepsis Event Note (ED) - Evaluation Sepsis Screening Result: No Definite Risk - Focused Exam Vital Signs: Vital Signs Temp Pulse Resp BP Pulse Ox 06/10/20 12:34 81 16 120/63 95 06/10/20 11:14 86 123/67 97 06/10/20 10:13 98.2 F 82 17 132/81 96 - My Orders Last 24 Hours: My Active Orders 06/10/20 10:17 EKG Documentation Completion [RC] STAT 06/10/20 10:18 Sodium Chloride 0.9% [Saline Flush] 10 ml FLUSH ASDIRECTED PRN Sodium Chloride 0.9% [Saline Flush] 2.5 ml FLUSH ASDIRECTED PRN Saline Lock Insert [OM.PC] Stat 06/10/20 12:10 Sodium Chloride 0.9% [Normal Saline] 1,000 ml IV .BOLUS - Assessment/Plan Last 24 Hours: My Active Orders 06/10/20 10:17 EKG Documentation Completion [RC] STAT 06/10/20 10:18 Sodium Chloride 0.9% [Saline Flush] 10 ml FLUSH ASDIRECTED PRN Sodium Chloride 0.9% [Saline Flush] 2.5 ml FLUSH ASDIRECTED PRN Saline Lock Insert [OM.PC] Stat 06/10/20 12:10 Sodium Chloride 0.9% [Normal Saline] 1,000 ml IV .BOLUS
[2020-06-10 11:13] LABS: BLOOD UREA NITROGEN,BUN 17 mg/dL (7.0-18.0); CARBON DIOXIDE,CO2 20.9 mmol/L (21.0-32.0); CHLORIDE,CL 104 mmol/L (98-107); GLUCOSE RANDOM 193 mg/dL (74-106); POTASSIUM,K 3.7 mmol/L (3.5-5.1); SODIUM,NA 139 mmol/L (136-145)
--- NOTE | 2020-06-10 12:06 | CR ---
INDICATION: Cough and chest pain TECHNIQUE: Chest 2 views. COMPARISON: None FINDINGS: Cardiovascular and mediastinum: Heart size and vasculature are normal in caliber and appearance. Mediastinum is within normal limits. Lungs and pleural spaces: Lungs are clear. No sign of infiltrate or mass. No sign of pleural effusion. No pneumothorax. Bones and soft tissues: No significant osseous findings. There is a round 1.2 cm metallic density, seen only on the lateral view, which may be within the patient`s upper arm, correlate with history. IMPRESSION: No sign of acute disease. Dictated by Yolanda Plata MD @ Jun 10 2020 12:05PM Signed by Dr. Yolanda Plata @ Jun 10 2020 12:05PM
--- NOTE | 2020-06-10 12:08 | CT ---
INDICATION: Headache with vision change TECHNIQUE: CT head without contrast. COMPARISON: May 20, 2018 FINDINGS: CSF spaces: Within normal limits for age. Brain parenchyma: The argueta-white differentiation is normal. No sign of mass, hemorrhage, or midline shift. Skull base and calvarium: The visualized paranasal sinuses and mastoid air cells demonstrate no acute or significant findings. The visualized orbits are grossly unremarkable. No skull fractures. IMPRESSION: Unremarkable noncontrast head CT. Please note that all CT scans at this facility use dose modulation, iterative reconstruction, and/or weight-based dosing when appropriate to reduce radiation dose to as low as reasonably achievable. Dictated by Yolanda Plata MD @ Jun 10 2020 12:05PM Signed by Dr. Yolanda Plata @ Jun 10 2020 12:07PM
[2020-06-10] MEDS ORDERED: Metoclopramide 10 MG/2 ML SDV IVPUSH ONE (12:10)
[2020-06-10] MEDS ORDERED: Sodium Chloride 0.9% 1,000 ML IV ONE (12:10)
[2020-06-10] MEDS ORDERED: Ondansetron 4 MG/2 ML SDV IVPUSH ONE (12:12)
[2020-06-10] MEDS ORDERED: Ketorolac 30 MG/ML SDV IVPUSH ONE (12:22)
[2020-06-10 12:35] VITALS: BP 120/63; PULSE 81
== END 2020-06-10 13:19 | disposition home or self-care (01) ==
LOC: MW.ED 09:57
DX: G43.009 Migraine without aura, not intractable, without status migrainosus (principal); E10.9 Type 1 diabetes mellitus without complications; E66.9 Obesity, unspecified; Z88.6 Allergy status to analgesic agent; Z20.822 Contact with and (suspected) exposure to COVID-19; Z68.34 Body mass index [BMI] 34.0-34.9, adult
CPT/HCPCS: 36415; 70450; 71046; 80053; 81001; 84484; 84703; 85025; 87635; 87651; 93005; 96374; 96375; 99284; J1885; J2405; J7030; 93010; U0002

== ENCOUNTER 2020-10-16 07:22 | Emergency (ER) | payer BC ==
[2020-10-16] MEDS ORDERED: Sodium Chloride 0.9% 1,000 ML IV ONE (07:48)
--- NOTE | 2020-10-16 07:59 | EDM.PDOC ---
ED HPI GENERAL MEDICAL PROBLEM - General Chief Complaint: Diabetic Complaint Stated Complaint: DKA Time Seen by Provider: 10/16/20 07:28 Source of Information: Reports: Patient - History of Present Illness INITIAL COMMENTS - FREE TEXT/NARRATIVE: Patient presents to the emergency department complaining of 1 week of feeling rundown fatigue weakness and shortness of breath. She has diabetes and she has had a hard time managing her blood sugars. They go up and down and unable to keep them under control. Last night the blood sugar went to 385 and the patient took 30 units of regular insulin. Patient denies any cough or productive sputum or fevers or Covid contacts. She is not Covid vaccinated. She states she is more short of breath when she walks. No history of blood clot. No unilateral leg swelling. No recent travel, injury, cancer, surgery. No smoking or control. Patient denies any excessive vaginal bleeding she has had a hysterectomy. No red or black stools. No sick contacts. She has some chest discomfort after walking. She feels like it is when you run too much and you are out of breath any have an abnormal sensation in your chest. No history of hypertension. No known exacerbating relieving factors. Patient has had DKA in the past. She takes insulin for diabetes - Related Data Allergies Allergy/AdvReac Type Severity Reaction Status Date / Time metformin AdvReac Intermediate Nausea and Verified 10/16/20 07:35 Vomiting Home Meds: Home Meds Empagliflozin [Jardiance] 25 mg PO BEDTIME 10/16/18 [History] Insulin Lispro [Humalog Kwikpen U-100] 1 injection SUBCUT ASDIRECTED 10/16/18 [History] Spironolactone [Aldactone] 25 mg PO DAILY 10/16/18 [History] Insulin Glargine,Hum.Rec.Anlog [Basaglar Kwikpen U-100] 50 units INJECT BEDTIME 04/27/19 [History] Semaglutide [Ozempic] 1 dose INJECT ASDIRECTED 06/10/20 [History] Past Medical History - Past Health History Medical/Surgical History: Denies Medical/Surgical History HEENT History: Reports: None, Other (See Below) Other HEENT History: Astigmatism Cardiovascular History: Reports: None Respiratory History: Reports: None Gastrointestinal History: Reports: None Genitourinary History: Reports: None 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: 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, 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, Polycystic Ovaries, Musculoskeletal History: Reports: None Neurological History: Reports: None Psychiatric History: Reports: Anxiety, Depression Endocrine/Metabolic History: Reports: Diabetes, Type I, Obesity/BMI 30+ Hematologic History: Reports: None Immunologic History: Reports: None Oncologic (Cancer) History: Reports: None Dermatologic History: Reports: None - Infectious Disease History Infectious Disease History: Reports: Chicken Pox - Past Surgical History Head Surgeries/Procedures: Reports: None HEENT Surgical History: Reports: None Cardiovascular Surgical History: Reports: None Respiratory Surgical History: Reports: None GI Surgical History: Reports: Appendectomy Female Surgical History: Reports: 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, Hysterectomy, Tubal Ligation Endocrine Surgical History: Reports: None Neurological Surgical History: Reports: None Musculoskeletal Surgical History: Reports: None Oncologic Surgical History: Reports: None Dermatological Surgical History: Reports: None Social & Family History - Family History Family Medical History: No Pertinent Family History OBGYN: Reports: Endocrine/Metabolic: Reports: Diabetes, Type I - Tobacco Use Tobacco Use Status *Q: Never Tobacco User - Caffeine Use Caffeine Use: Reports: None - Recreational Drug Use Recreational Drug Use: No ED ROS GENERAL - Review of Systems Review Of Systems: See Below Free Text/Narrative/Comment: Constitutional: No fevers, chills Respiratory: No cough Cardiovascular: No palpitations Gastrointestinal: No nausea, vomiting, diarrhea Genitourinary: No pain with urination. No frequency Jose/Lymph: Negative for bruising tendency Musculoskeletal: decreased range of motion, trauma Integumentary: No rash, bruising Neurologic: No numbness or weakness Psychiatric: No anxiety, depression ED EXAM, GENERAL - Physical Exam Exam: See Below Free Text/Narrative:: O2 room air saturation > normal > %98 CONSTITUTIONAL: well appearing in no acute distress SKIN: Warm, dry, and intact without rash HENT: Normocephalic, atraumatic, PULMONARY: clear to ausculation bilaterally. No rales, rhonchi, wheezing CARDIOVASCULAR: regular rate, No murmur, rubs, or gallops GASTROINTESTINAL: soft, nondistended, nontender NEUROLOGIC: normal speech, II-XII intact. light touch/5/5 power equal and symmetric in upper and lower extremities without deficit MUSCULOSKELETAL: no gross deformities, atraumatic PSYCHIATRIC: normal mood and affect #1 Interpretation EKG Date: 10/16/20 Time: 10:46 EKG Interpretation Comments: EKG: NSR, nonspecific ST/T changes, Rate - 83 Course - Vital Signs Text/Narrative:: Differential diagnosis: DKA, dehydration, anemia, Covid, pneumonia, PE, ACS, other Patient presents as outlined above. Patient blood sugars at acceptable levels. There is a slight decrease in her CO2 and very mild acidosis. Patient is not an SGLT inhibitor and there could be consideration for trending toward euglycemic DKA. Patient's Januvia will be stopped for couple days. She was given 2 L of IV fluid and the PCP was contacted and he will follow-up in this regard and to recheck her laboratory testing and to make sure she continues to do well. The remainder of her work-up is effectively unremarkable. Supportive care with return precautions and PCP follow-up Last Recorded V/S: Last Vital Signs Temp 36.0 C L 10/16/20 07:37 Pulse 91 10/16/20 10:19 Resp 19 10/16/20 10:19 BP 115/63 10/16/20 10:19 Pulse Ox 97 10/16/20 10:19 - Orders/Labs/Meds Orders: Active Orders 24 hr Category Date Time Status EKG 12 Lead [EKG Documentation Completion] [RC] STAT Care 10/16/20 07:53 Active Sodium Chloride 0.9% [Saline Flush] Med 10/16/20 07:48 Active 10 ml FLUSH ASDIRECTED PRN Sodium Chloride 0.9% [Saline Flush] Med 10/16/20 07:48 Active 2.5 ml FLUSH ASDIRECTED PRN Saline Lock Insert [OM.PC] Stat Oth 10/16/20 07:50 Ordered Medication Orders Sodium Chloride (Sodium Chloride 0.9% 10 Ml Syringe) 10 ml FLUSH ASDIRECTED PRN PRN Reason: Keep Vein Open Last Admin: 10/16/20 12:00 Dose: 10 ml Documented by: Admin: 10/16/20 08:24 Dose: 10 ml Documented by: PETE Sodium Chloride (Sodium Chloride 0.9% 2.5 Ml Syringe) 2.5 ml FLUSH ASDIRECTED PRN PRN Reason: Keep Vein Open Last Admin: 10/16/20 12:00 Dose: 2.5 ml Documented by: Admin: 10/16/20 08:24 Dose: 2.5 ml Documented by: PETE Labs: Laboratory Tests 10/16/20 10/16/20 10/16/20 Range/Units 08:05 08:05 08:10 WBC (4.0-11.0) K/uL RBC (4.30-5.90) M/uL Hgb (12.0-16.0) g/dL Hct (36.0-46.0) % MCV (80.0-98.0) fL MCH (27.0-32.0) pg MCHC (31.0-37.0) g/dL RDW Std Deviation (28.0-62.0) fl RDW Coeff of Escobar (11.0-15.0) % Plt Count (150-400) K/uL MPV (7.40-12.00) fL Neut % (Auto) (48.0-80.0) % Lymph % (Auto) (16.0-40.0) % [place] % (Auto) (0.0-15.0) % Eos % (Auto) (0.0-7.0) % Baso % (Auto) (0.0-1.5) % Neut # (Auto) (1.4-5.7) K/uL Lymph # (Auto) (0.6-2.4) K/uL [place] # (Auto) (0.0-0.8) K/uL Eos # (Auto) (0.0-0.7) K/uL Baso # (Auto) (0.0-0.1) K/uL Nucleated RBC % /100WBC Nucleated RBCs # K/uL D-Dimer, Quantitative (0.0-0.50) mg/L FEU VBG pH 7.36 (7.31-7.41) VBG pCO2 31 L (41-51) mmHG VBG pO2 60 mmHG VBG HCO3 18 L (23-28) mEq/L VBG Total CO2 19 L (24-29) mmol/L VBG Base Excess -6.0 L (-2.0-3.0) Sodium (136-145) mmol/L Potassium (3.5-5.1) mmol/L Chloride (98-107) mmol/L Carbon Dioxide (21.0-32.0) mmol/L BUN (7.0-18.0) mg/dL Creatinine (0.6-1.0) mg/dL Est Cr Clr Drug Dosing mL/min Estimated GFR (MDRD) ml/min Glucose (74-106) mg/dL Calcium (8.5-10.1) mg/dL Phosphorus (2.6-4.7) mg/dL Magnesium (1.8-2.4) mg/dL Total Bilirubin (0.2-1.0) mg/dL AST (15-37) IU/L ALT (14-63) IU/L Alkaline Phosphatase (46-116) U/L Troponin I (0.000-0.056) ng/mL Total Protein (6.4-8.2) g/dL Albumin (3.4-5.0) g/dL Globulin (2.6-4.0) g/dL Albumin/Globulin Ratio (0.9-1.6) TSH, Ultra Sensitive (0.36-3.74) uIU/mL Urine Color YELLOW Urine Appearance CLEAR Urine pH 5.5 (5.0-8.0) Ur Specific [place] 1.020 (1.001-1.035) Urine Protein NEGATIVE (NEGATIVE) mg/dL Urine Glucose (UA) 500 H (NEGATIVE) mg/dL Urine Ketones >=80 (NEGATIVE) mg/dL Urine Occult Blood TRACE-INTACT H (NEGATIVE) Urine Nitrite NEGATIVE (NEGATIVE) Urine Bilirubin SMALL H (NEGATIVE) Urine Ictotest NEGATIVE Urine Urobilinogen 0.2 (<2.0) EU/dL Ur Leukocyte Esterase NEGATIVE (NEGATIVE) Urine RBC 0-2 (0-2/HPF) Urine WBC 0-2 (0-5/HPF) Ur Epithelial Cells FEW (NONE-FEW) Urine Bacteria FEW (NEGATIVE) Urine HCG, Qual NEGATIVE (NEGATIVE) Ketones (NEG) SARS-CoV-2 RNA ([facility]) (NEGATIVE) 10/16/20 10/16/20 10/16/20 Range/Units 08:10 08:10 08:10 WBC (4.0-11.0) K/uL RBC (4.30-5.90) M/uL Hgb (12.0-16.0) g/dL Hct (36.0-46.0) % MCV (80.0-98.0) fL MCH (27.0-32.0) pg MCHC (31.0-37.0) g/dL RDW Std Deviation (28.0-62.0) fl RDW Coeff of Escobar (11.0-15.0) % Plt Count (150-400) K/uL MPV (7.40-12.00) fL Neut % (Auto) (48.0-80.0) % Lymph % (Auto) (16.0-40.0) % [place] % (Auto) (0.0-15.0) % Eos % (Auto) (0.0-7.0) % Baso % (Auto) (0.0-1.5) % Neut # (Auto) (1.4-5.7) K/uL Lymph # (Auto) (0.6-2.4) K/uL [place] # (Auto) (0.0-0.8) K/uL Eos # (Auto) (0.0-0.7) K/uL Baso # (Auto) (0.0-0.1) K/uL Nucleated RBC % /100WBC Nucleated RBCs # K/uL D-Dimer, Quantitative 0.26 (0.0-0.50) mg/L FEU VBG pH (7.31-7.41) VBG pCO2 (41-51) mmHG VBG pO2 mmHG VBG HCO3 (23-28) mEq/L VBG Total CO2 (24-29) mmol/L VBG Base Excess (-2.0-3.0) Sodium (136-145) mmol/L Potassium (3.5-5.1) mmol/L Chloride (98-107) mmol/L Carbon Dioxide (21.0-32.0) mmol/L BUN (7.0-18.0) mg/dL Creatinine (0.6-1.0) mg/dL Est Cr Clr Drug Dosing mL/min Estimated GFR (MDRD) ml/min Glucose (74-106) mg/dL Calcium (8.5-10.1) mg/dL Phosphorus 2.7 (2.6-4.7) mg/dL Magnesium 1.7 L (1.8-2.4) mg/dL Total Bilirubin (0.2-1.0) mg/dL AST (15-37) IU/L ALT (14-63) IU/L Alkaline Phosphatase (46-116) U/L Troponin I < 0.050 (0.000-0.056) ng/mL Total Protein (6.4-8.2) g/dL Albumin (3.4-5.0) g/dL Globulin (2.6-4.0) g/dL Albumin/Globulin Ratio (0.9-1.6) TSH, Ultra Sensitive 3.28 (0.36-3.74) uIU/mL Urine Color Urine Appearance Urine pH (5.0-8.0) Ur Specific [place] (1.001-1.035) Urine Protein (NEGATIVE) mg/dL Urine Glucose (UA) (NEGATIVE) mg/dL Urine Ketones (NEGATIVE) mg/dL Urine Occult Blood (NEGATIVE) Urine Nitrite (NEGATIVE) Urine Bilirubin (NEGATIVE) Urine Ictotest Urine Urobilinogen (<2.0) EU/dL Ur Leukocyte Esterase (NEGATIVE) Urine RBC (0-2/HPF) Urine WBC (0-5/HPF) Ur Epithelial Cells (NONE-FEW) Urine Bacteria (NEGATIVE) Urine HCG, Qual (NEGATIVE) Ketones NEGATIVE (NEG) SARS-CoV-2 RNA ([facility]EC) (NEGATIVE) 10/16/20 10/16/20 10/16/20 Range/Units 08:10 08:10 08:47 WBC 10.16 (4.0-11.0) K/uL RBC 5.35 (4.30-5.90) M/uL Hgb 16.3 H (12.0-16.0) g/dL Hct 46.0 (36.0-46.0) % MCV 86.0 (80.0-98.0) fL MCH 30.5 (27.0-32.0) pg MCHC 35.4 (31.0-37.0) g/dL RDW Std Deviation 39.9 (28.0-62.0) fl RDW Coeff of Escobar 13 (11.0-15.0) % Plt Count 374 (150-400) K/uL MPV 10.10 (7.40-12.00) fL Neut % (Auto) 48.2 (48.0-80.0) % Lymph % (Auto) 42.0 H (16.0-40.0) % [place] % (Auto) 6.3 (0.0-15.0) % Eos % (Auto) 2.8 (0.0-7.0) % Baso % (Auto) 0.7 (0.0-1.5) % Neut # (Auto) 4.9 (1.4-5.7) K/uL Lymph # (Auto) 4.3 H (0.6-2.4) K/uL [place] # (Auto) 0.6 (0.0-0.8) K/uL Eos # (Auto) 0.3 (0.0-0.7) K/uL Baso # (Auto) 0.1 (0.0-0.1) K/uL Nucleated RBC % 0.0 /100WBC Nucleated RBCs # 0 K/uL D-Dimer, Quantitative (0.0-0.50) mg/L FEU VBG pH (7.31-7.41) VBG pCO2 (41-51) mmHG VBG pO2 mmHG VBG HCO3 (23-28) mEq/L VBG Total CO2 (24-29) mmol/L VBG Base Excess (-2.0-3.0) Sodium 134 L (136-145) mmol/L Potassium 3.7 (3.5-5.1) mmol/L Chloride 98 (98-107) mmol/L Carbon Dioxide 18.9 L (21.0-32.0) mmol/L BUN 16 (7.0-18.0) mg/dL Creatinine 0.9 (0.6-1.0) mg/dL Est Cr Clr Drug Dosing 96.39 mL/min Estimated GFR (MDRD) > 60.0 ml/min Glucose 144 H (74-106) mg/dL Calcium 9.2 (8.5-10.1) mg/dL Phosphorus (2.6-4.7) mg/dL Magnesium (1.8-2.4) mg/dL Total Bilirubin 0.3 (0.2-1.0) mg/dL AST 55 H (15-37) IU/L ALT 71 H (14-63) IU/L Alkaline Phosphatase 130 H (46-116) U/L Troponin I (0.000-0.056) ng/mL Total Protein 8.4 H (6.4-8.2) g/dL Albumin 4.4 (3.4-5.0) g/dL Globulin 4.0 (2.6-4.0) g/dL Albumin/Globulin Ratio 1.1 (0.9-1.6) TSH, Ultra Sensitive (0.36-3.74) uIU/mL Urine Color Urine Appearance Urine pH (5.0-8.0) Ur Specific [place] (1.001-1.035) Urine Protein (NEGATIVE) mg/dL Urine Glucose (UA) (NEGATIVE) mg/dL Urine Ketones (NEGATIVE) mg/dL Urine Occult Blood (NEGATIVE) Urine Nitrite (NEGATIVE) Urine Bilirubin (NEGATIVE) Urine Ictotest Urine Urobilinogen (<2.0) EU/dL Ur Leukocyte Esterase (NEGATIVE) Urine RBC (0-2/HPF) Urine WBC (0-5/HPF) Ur Epithelial Cells (NONE-FEW) Urine Bacteria (NEGATIVE) Urine HCG, Qual (NEGATIVE) Ketones (NEG) SARS-CoV-2 RNA (ALEC) NEGATIVE (NEGATIVE) Meds: Medications Generic Name Dose Route Start Last Admin Trade Name Lynda PRN Reason Stop Dose Admin Sodium Chloride 10 ml 10/16/20 07:48 10/16/20 12:00 Sodium Chloride 0.9% 10 Ml Syringe FLUSH 10 ml ASDIRECTED PRN Administration Keep Vein Open Sodium Chloride 2.5 ml 10/16/20 07:48 10/16/20 12:00 Sodium Chloride 0.9% 2.5 Ml Syringe FLUSH 2.5 ml ASDIRECTED PRN Administration Keep Vein Open Discontinued Medications Generic Name Dose Route Start Last Admin Trade Name Lynda PRN Reason Stop Dose Admin Sodium Chloride 1,000 mls @ 999 mls/hr 10/16/20 07:48 10/16/20 08:24 Normal Saline IV 10/16/20 08:48 999 mls/hr .BOLUS ONE Administration Lactated Ringer's 1,000 mls @ 999 mls/min 10/16/20 10:28 10/16/20 11:59 Ringers, Lactated IV 10/16/20 10:29 999 mls/min .BOLUS ONE Administration Departure - Departure Time of Disposition: 13:15 Disposition: Home, Self-Care 01 Condition: Good Clinical Impression: Diabetes, Acidosis - Discharge Information Instructions: Living With Diabetes Referrals: PCP,None [Ordering Only Provider] - Forms: ED Department Discharge Additional Instructions: Return for fevers, shortness of breath, chest pain, increased weakness, change or worsening condition or lack of improvement. Stop your Chet for a couple of days until he can follow-up with your primary care doctor as discussed. --------- - The following information is given to patients seen in the emergency department who are being discharged to home. This information is to outline your options for follow-up care. We provide all patients seen in our emergency department with a follow-up referral. The need for follow-up, as well as the timing and circumstances, are variable depending upon the specifics of your emergency department visit. If you don't have a primary care physician on staff, we will provide you with a referral. We always advise you to contact your personal physician following an emergency department visit to inform them of the circumstance of the visit and for follow-up with them and/or the need for any referrals to a consulting specialist. The emergency department will also refer you to a specialist when appropriate. This referral assures that you have the opportunity for follow-up care with a specialist. All of these measure are taken in an effort to provide you with optimal care, which includes your follow-up. Under all circumstances we always encourage you to contact your private physician who remains a resource for coordinating your care. When calling for follow-up care, please make the office aware that this follow-up is from your recent emergency room visit. If for any reason you are refused follow-up, please contact the [facility] Emergency Department at and asked to speak to the emergency department charge nurse. Sepsis Event Note (ED) - Evaluation Sepsis Screening Result: No Definite Risk - Focused Exam Vital Signs: Vital Signs Temp Pulse Resp BP Pulse Ox 10/16/20 10:19 91 19 115/63 97 10/16/20 07:37 36.0 C L 97 19 123/86 97 - My Orders Last 24 Hours: My Active Orders 10/16/20 07:48 Sodium Chloride 0.9% [Saline Flush] 10 ml FLUSH ASDIRECTED PRN Sodium Chloride 0.9% [Saline Flush] 2.5 ml FLUSH ASDIRECTED PRN 10/16/20 07:50 Saline Lock Insert [OM.PC] Stat 10/16/20 07:53 EKG 12 Lead [EKG Documentation Completion] [RC] STAT - Assessment/Plan Last 24 Hours: My Active Orders 10/16/20 07:48 Sodium Chloride 0.9% [Saline Flush] 10 ml FLUSH ASDIRECTED PRN Sodium Chloride 0.9% [Saline Flush] 2.5 ml FLUSH ASDIRECTED PRN 10/16/20 07:50 Saline Lock Insert [OM.PC] Stat 10/16/20 07:53 EKG 12 Lead [EKG Documentation Completion] [RC] STAT
[2020-10-16] MEDS: Sodium Chloride 0.9% 10 ML Syringe FLUSH PRN ×2 (08:24→12:00)
[2020-10-16] MEDS: Sodium Chloride 0.9% 2.5 ML Syringe FLUSH PRN ×2 (08:24→12:00)
--- NOTE | 2020-10-16 09:01 | CR ---
Indication: Shortness of breath Comparison: Two-view chest June 10, 2020 Technique: Single AP view chest Findings: There is no focal consolidation, effusion, or pneumothorax. The cardiomediastinal silhouette is within normal limits. The bony thorax is grossly intact. Impression: No acute cardiopulmonary abnormality. Dictated by Yosvany Floyd MD @ 10/16/2020 9:01:[address] Yosvany Floyd @ Oct 16 2020 9:01AM
[2020-10-16 09:44] LABS: BLOOD UREA NITROGEN,BUN 16 mg/dL (7.0-18.0); CARBON DIOXIDE,CO2 18.9 mmol/L (21.0-32.0); CHLORIDE,CL 98 mmol/L (98-107); GLUCOSE RANDOM 144 mg/dL (74-106); POTASSIUM,K 3.7 mmol/L (3.5-5.1); SODIUM,NA 134 mmol/L (136-145)
[2020-10-16] MEDS ORDERED: Lactated Ringers 1,000 ML IV ONE (10:28)
[2020-10-16 13:36] VITALS: BP 114/68; PULSE 87
== END 2020-10-16 13:33 | disposition home or self-care (01) ==
LOC: MW.ED 07:22
DX: E10.10 Type 1 diabetes mellitus with ketoacidosis without coma (principal); E66.9 Obesity, unspecified; Z68.36 Body mass index [BMI] 36.0-36.9, adult; Z20.822 Contact with and (suspected) exposure to COVID-19; Z88.8 Allergy status to other drugs, medicaments and biological substances
CPT/HCPCS: 36415; 71045; 80053; 81001; 81025; 82009; 82803; 83735; 84100; 84443; 84484; 85025; 85379; 87635; 93005; 99285; J7030; J7120; 93010; 99284; U0002

== ENCOUNTER 2020-12-24 06:08 | Emergency (ER) | payer BC ==
[2020-12-24] MEDS ORDERED: Lactated Ringers 1,000 ML IV ONE (07:44)
[2020-12-24] MEDS ORDERED: Morphine 4 MG/ML Syringe IVPUSH ONE (07:44)
[2020-12-24] MEDS ORDERED: Ondansetron 4 MG/2 ML SDV IVPUSH ONE (07:44)
--- NOTE | 2020-12-24 07:45 | EDM.PDOC ---
ED HPI GENERAL MEDICAL PROBLEM - General Chief Complaint: Abdominal Pain Stated Complaint: ISSUES FROM SURGERY LAST MONTH Time Seen by Provider: 12/24/20 07:41 Source of Information: Reports: Patient History Limitations: Reports: No Limitations - History of Present Illness INITIAL COMMENTS - FREE TEXT/NARRATIVE: 30-year-old female history of diabetes and appendectomy presents with acute onset nonradiating dull aching moderate, nonradiating umbilical abdominal pain. She is walking her dog yesterday and her dog leash got caught with another dog and the patient was tugged abruptly, triggering acute onset pain in the umbilical region. Her surgery was performed by Dr. Yosvany Field at [facility] in [place] on 12/01. She feels nauseous but no vomiting or diarrhea or fevers or chills. ROS: A 10-point review of systems, other than pertinent positives and negatives as stated per HPI, is otherwise negative Past medical history: No additional pertinent history Past Surgical history: No additional pertinent history Social history: No additional pertinent history Family history: No additional pertinent history PHYSICAL EXAM General: AOx4, GCS = 15, mild distress HEENT: dry mucous membrane Neck: supple, no meningismus, no Kernig or Brudzinski Cardiac: S1S2 RRR Respiratory: CTAB, no crackles or rales, no wheezing Abdomen: Soft, periumbilical tenderness, incision clean, dry, intact, no dehiscence. No allergies hernia palpable in the umbilicus. No rebound or guarding, nondistended, no pulsatile mass. Back: nontender Musculoskeletal: NVI distally, no deformity Neuro: No focal deficits, CN 2 - 12 WNL. Middle Abdomen Pain Score (Numeric/FACES): 7 - Related Data Allergies Allergy/AdvReac Type Severity Reaction Status Date / Time metformin AdvReac Intermediate Nausea and Verified 12/24/20 07:12 Vomiting Home Meds: Home Meds Insulin Lispro [Humalog Kwikpen U-100] 1 injection SUBCUT ASDIRECTED 10/16/18 [History] Spironolactone [Aldactone] 25 mg PO DAILY 10/16/18 [History] Insulin Glargine,Hum.Rec.Anlog [Basaglar Kwikpen U-100] 50 units INJECT BEDTIME 04/27/19 [History] Acetaminophen/oxyCODONE [Percocet 325-5 MG] 1 each PO Q6H PRN #12 tab 12/24/20 [Rx] Ondansetron [Zofran ODT] 4 mg PO Q6H PRN #12 tab.dis 12/24/20 [Rx] Pantoprazole [ProTONIX] 12/24/20 [History] Past Medical History - Past Health History Medical/Surgical History: Denies Medical/Surgical History HEENT History: Reports: None, Other (See Below) Other HEENT History: Astigmatism Cardiovascular History: Reports: None Respiratory History: Reports: None Gastrointestinal History: Reports: None Genitourinary History: Reports: None 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: 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, 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, Polycystic Ovaries, Musculoskeletal History: Reports: None Neurological History: Reports: None Psychiatric History: Reports: Anxiety, Depression Endocrine/Metabolic History: Reports: Diabetes, Type I, Obesity/BMI 30+ Hematologic History: Reports: None Immunologic History: Reports: None Oncologic (Cancer) History: Reports: None Dermatologic History: Reports: None - Infectious Disease History Infectious Disease History: Reports: Chicken Pox - Past Surgical History Head Surgeries/Procedures: Reports: None HEENT Surgical History: Reports: None Cardiovascular Surgical History: Reports: None Respiratory Surgical History: Reports: None GI Surgical History: Reports: Appendectomy, Bariatric Procedure Female Surgical History: Reports: 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, Hysterectomy, Tubal Ligation Endocrine Surgical History: Reports: None Neurological Surgical History: Reports: None Musculoskeletal Surgical History: Reports: None Oncologic Surgical History: Reports: None Dermatological Surgical History: Reports: None Social & Family History - Family History Family Medical History: No Pertinent Family History OBGYN: Reports: Endocrine/Metabolic: Reports: Diabetes, Type I - Tobacco Use Tobacco Use Status *Q: Never Tobacco User Second Hand Smoke Exposure: No - Caffeine Use Caffeine Use: Reports: None - Recreational Drug Use Recreational Drug Use: No ED ROS GENERAL - Review of Systems Review Of Systems: See Below (see dictation) ED EXAM, GENERAL - Physical Exam Exam: See Below (see dictation) Course - Vital Signs Last Recorded V/S: Last Vital Signs Temp 96.6 F L 12/24/20 07:12 Pulse 75 12/24/20 07:12 Resp 20 12/24/20 07:12 BP 108/55 L 12/24/20 07:12 Pulse Ox - Orders/Labs/Meds Orders: Active Orders 24 hr Category Date Time Status UA RFX SHAUN AND CULT IF INDIC [URIN] Stat Lab 12/24/20 07:40 Ordered URINALYSIS W/MICROSCOPIC [UA W/MICROSCOPIC] [URIN] Stat Lab 12/24/20 07:39 Ordered Labs: Laboratory Tests 12/24/20 12/24/20 12/24/20 Range/Units 07:57 07:57 07:57 WBC 6.70 (4.0-11.0) K/uL RBC 4.50 (4.30-5.90) M/uL Hgb 13.5 (12.0-16.0) g/dL Hct 38.9 (36.0-46.0) % MCV 86.4 (80.0-98.0) fL MCH 30.0 (27.0-32.0) pg MCHC 34.7 (31.0-37.0) g/dL RDW Std Deviation 42.0 (28.0-62.0) fl RDW Coeff of Escobar 13 (11.0-15.0) % Plt Count 275 (150-400) K/uL MPV 10.60 (7.40-12.00) fL Neut % (Auto) 31.6 L (48.0-80.0) % Lymph % (Auto) 57.2 H (16.0-40.0) % [place] % (Auto) 6.6 (0.0-15.0) % Eos % (Auto) 3.4 (0.0-7.0) % Baso % (Auto) 1.2 (0.0-1.5) % Neut # (Auto) 2.1 (1.4-5.7) K/uL Lymph # (Auto) 3.8 H (0.6-2.4) K/uL [place] # (Auto) 0.4 (0.0-0.8) K/uL Eos # (Auto) 0.2 (0.0-0.7) K/uL Baso # (Auto) 0.1 (0.0-0.1) K/uL Nucleated RBC % 0.0 /100WBC Nucleated RBCs # 0 K/uL INR 1.08 Sodium 143 (136-145) mmol/L Potassium 3.2 L (3.5-5.1) mmol/L Chloride 105 (98-107) mmol/L Carbon Dioxide 25.9 (21.0-32.0) mmol/L BUN 6 L (7.0-18.0) mg/dL Creatinine 0.8 (0.6-1.0) mg/dL Est Cr Clr Drug Dosing 107.46 mL/min Estimated GFR (MDRD) > 60.0 ml/min Glucose 92 (74-106) mg/dL Calcium 8.6 (8.5-10.1) mg/dL Total Bilirubin 0.5 (0.2-1.0) mg/dL AST 18 (15-37) IU/L ALT 39 (14-63) IU/L Alkaline Phosphatase 88 (46-116) U/L Total Protein 6.9 (6.4-8.2) g/dL Albumin 3.7 (3.4-5.0) g/dL Globulin 3.2 (2.6-4.0) g/dL Albumin/Globulin Ratio 1.2 (0.9-1.6) Lipase 904 H (73-393) U/L Meds: Medications Discontinued Medications Generic Name Dose Route Start Last Admin Trade Name Freq PRN Reason Stop Dose Admin Lactated Ringer's 1,000 mls @ 999 mls/hr 12/24/20 07:44 12/24/20 08:21 Ringers, Lactated IV 12/24/20 08:44 999 mls/hr .BOLUS ONE Administration Morphine Sulfate 4 mg 12/24/20 07:44 12/24/20 08:21 Morphine 4 Mg/Ml Syringe IVPUSH 12/24/20 07:45 4 mg ONETIME ONE Administration Ondansetron HCl 4 mg 12/24/20 07:44 12/24/20 08:21 Ondansetron 4 Mg/2 Ml Sdv IVPUSH 12/24/20 07:45 4 mg ONETIME ONE Administration - Re-Assessments/Exams Free Text/Narrative Re-Assessment/Exam: 12/24/20 09:10 After IV morphine and Zofran in the ER, the patient's pain improved and is currently stable for discharge. I performed a repeat exam and did not appreciate new abnormal findings. Patient exhibits normal vital signs and has a normal gait on road test. I advised the patient to return to the ER for reevaluation if symptoms worsened, including fever, worsening pain, or any other worrisome symptoms. I instructed the patient to follow up with Dr. Jaden Holcomb within 2-3 days. MEDICAL DECISION MAKING: I reviewed the patients past medical records, lab and radiographic findings. I discussed the case with the patient. My differential diagnosis included: Wound dehiscence, hernia, pancreatitis, gastric sleeve complication. CT did not demonstrate incarcerated hernia. Lipase elevated in the 900s consistent with mild pancreatitis, her pain improved in the ED, does not require any IV pain medication. She is stable for outpatient follow-up with her surgeon in 2 days. Departure - Departure Time of Disposition: 09:15 Disposition: Home, Self-Care 01 Condition: Good Clinical Impression: Pancreatitis, Umbilical hernia, S/P gastric sleeve procedure Abdominal pain Qualifiers: Abdominal location: left lower quadrant Qualified Code(s): R10.32 - Left lower quadrant pain - Discharge Information *PRESCRIPTION DRUG MONITORING PROGRAM REVIEWED*: Not Applicable *COPY OF PRESCRIPTION DRUG MONITORING REPORT IN PATIENT CARLOS: Not Applicable Prescriptions: Acetaminophen/oxyCODONE [Percocet 325-5 MG] 1 each PO Q6H PRN #12 tab PRN Reason: Pain (Moderate 4-6) Ondansetron [Zofran ODT] 4 mg PO Q6H PRN #12 tab.dis PRN Reason: Vomiting Instructions: Acute Pancreatitis, [id number], Pancreatitis Eating Plan, Abdominal Pain, Adult, [id number] Referrals: Yosvany Field MD [Ordering Only Provider] - 2 Days Forms: ED Department Discharge Additional Instructions: The need for follow-up, as well as the timing and circumstances, are variable depending upon the specifics of your emergency department visit. If you don't have a primary care physician on staff, we will provide you with a referral. We always advise you to contact your personal physician following an emergency department visit to inform them of the circumstance of the visit and for follow-up with them and/or the need for any referrals to a consulting specialist. The emergency department will also refer you to a specialist when appropriate. This referral assures that you have the opportunity for follow-up care with a specialist. All of these measure are taken in an effort to provide you with optimal care, which includes your follow-up. Under all circumstances we always encourage you to contact your private physician who remains a resource for coordinating your care. When calling for follow-up care, please make the office aware that this follow-up is from your recent emergency room visit. If for any reason you are refused follow-up, please contact the [facility] Emergency Department at and asked to speak to the emergency department charge nurse. If you do not have a primary care doctor, please follow up with the clinics below within 3-5 days. [facility] [address] [place] [address] [facility] [address] [place] [id number] Sepsis Event Note (ED) - Evaluation Sepsis Screening Result: No Definite Risk - Focused Exam Vital Signs: Vital Signs Temp Pulse Resp BP 12/24/20 07:12 96.6 F L 75 20 108/55 L - My Orders Last 24 Hours: My Active Orders 12/24/20 07:39 URINALYSIS W/MICROSCOPIC [UA W/MICROSCOPIC] [URIN] Stat 12/24/20 07:40 UA RFX SHAUN AND CULT IF INDIC [URIN] Stat - Assessment/Plan Last 24 Hours: My Active Orders 12/24/20 07:39 URINALYSIS W/MICROSCOPIC [UA W/MICROSCOPIC] [URIN] Stat 12/24/20 07:40 UA RFX SHAUN AND CULT IF INDIC [URIN] Stat
[2020-12-24 08:32] LABS: BLOOD UREA NITROGEN,BUN 6 mg/dL (7.0-18.0); CARBON DIOXIDE,CO2 25.9 mmol/L (21.0-32.0); CHLORIDE,CL 105 mmol/L (98-107); GLUCOSE RANDOM 92 mg/dL (74-106); LIPASE 904 U/L (73-393); POTASSIUM,K 3.2 mmol/L (3.5-5.1); SODIUM,NA 143 mmol/L (136-145)
--- NOTE | 2020-12-24 09:03 | CT ---
INDICATION: Periumbilical pain, status post gastric sleeve in 11/2020, pain after walking dog yesterday AM and dog pulled her hard. TECHNIQUE: CT of the abdomen and pelvis with 100 cc Isovue 370 IV contrast. Coronal and sagittal reconstructions. COMPARISON: CT of the abdomen and pelvis 10/24/2018. FINDINGS: Diffuse hepatic steatosis. Focal fatty infiltration about the falciform fissure. The gallbladder, spleen, pancreas, and adrenal glands are negative. Splenule. No biliary dilation. Hepatic and portal veins are patent. Symmetric enhancement of the kidneys. No hydronephrosis or ureteral dilation. No obstructing urinary calculi. Under distended urinary bladder. Hysterectomy. There is a 3.0 cm complex cyst or mass in the right ovary (series 301, image 133). Small follicle left ovary. Interval postoperative changes of sleeve gastrectomy. Mild amount of scattered fat stranding about the stomach may be postoperative in nature. No bowel dilation. Appendectomy. Trace free fluid in the pelvis may be physiologic. No intraperitoneal free air. Stable small fat containing umbilical hernia. There appears to be an underlying mesh in place. There is a new thin fat containing tract extending superiorly from the umbilicus to the left abdominal wall musculature (series 301 images 96-104). This may be postoperative in nature. Mild skin thickening about the umbilicus. No underlying facial defect. No fluid collection within the abdominal wall. No lymphadenopathy. The bones are unremarkable. The lung bases are clear. IMPRESSION: 1. Interval postoperative changes of sleeve gastrectomy. No obvious complication. 2. Stable small fat containing umbilical hernia. Mild skin thickening about the umbilicus. Correlate with physical exam to exclude cellulitis. No abdominal wall fluid collection. 3. New thin fat containing tract extending superiorly from the umbilicus to the left abdominal wall musculature. No underlying facial defect. This may be postoperative in nature. 4. Diffuse hepatic steatosis. 5. 3.0 cm complex cyst or mass in the right ovary. This could be further evaluated with pelvic ultrasound. Please note that all CT scans at this facility use dose modulation, iterative reconstruction, and/or weight-based dosing when appropriate to reduce radiation dose to as low as reasonably achievable. Dictated by Zena Bagley MD @ 12/24/2020 9:02:30 AM (Electronically Signed)
[2020-12-24 11:19] VITALS: BP 132/61; PULSE 55
== END 2020-12-24 09:30 | disposition home or self-care (01) ==
LOC: MW.ED 06:08
DX: K42.9 Umbilical hernia without obstruction or gangrene (principal); K85.90 Acute pancreatitis without necrosis or infection, unspecified; E10.9 Type 1 diabetes mellitus without complications; E66.9 Obesity, unspecified; Z68.34 Body mass index [BMI] 34.0-34.9, adult; Z90.49 Acquired absence of other specified parts of digestive tract; Z98.890 Other specified postprocedural states; Z88.8 Allergy status to other drugs, medicaments and biological substances; Z79.899 Other long term (current) drug therapy
CPT/HCPCS: 36415; 74177; 80053; 83690; 85025; 85610; 96374; 96375; 99284; J2270; J2405; J7120

== ENCOUNTER 2021-05-21 14:24 | Emergency (ER) | payer BC ==
[2021-05-21] MEDS ORDERED: Sodium Chloride 0.9% 1,000 ML IV ONE (14:33)
[2021-05-21] MEDS ORDERED: LORazepam 2 MG/ML SDV IVPUSH ONE (14:33)
[2021-05-21 15:24] LABS: BLOOD UREA NITROGEN,BUN 7 mg/dL (7.0-18.0); CARBON DIOXIDE,CO2 18.2 mmol/L (21.0-32.0); CHLORIDE,CL 103 mmol/L (98-107); GLUCOSE RANDOM 106 mg/dL (74-106); POTASSIUM,K 3.6 mmol/L (3.5-5.1); SODIUM,NA 138 mmol/L (136-145)
[2021-05-21 15:49] VITALS: BP 103/63; PULSE 85
== END 2021-05-21 15:35 | disposition home or self-care (01) ==
LOC: MW.ED 14:24
DX: F41.9 Anxiety disorder, unspecified (principal); E10.9 Type 1 diabetes mellitus without complications; E66.9 Obesity, unspecified; Z68.31 Body mass index [BMI] 31.0-31.9, adult; Z79.4 Long term (current) use of insulin
CPT/HCPCS: 36415; 80053; 81003; 84443; 85025; 93005; 96374; 99283; J2060; J7030; 93010

== ENCOUNTER 2021-08-10 02:17 | Emergency (ER) | payer BC ==
[2021-08-10] MEDS ORDERED: Ondansetron 4 MG/2 ML SDV IVPUSH ONE (02:38)
[2021-08-10] MEDS ORDERED: Sodium Chloride 0.9% 1,000 ML IV ONE (02:38)
[2021-08-10] MEDS ORDERED: HYDROmorphone 1 MG/ML Syringe IVPUSH ONE (02:38)
[2021-08-10] MEDS ORDERED: Pantoprazole 40 MG in Sodium Chloride 0.9% 10 ML IVPUSH STA (02:40)
[2021-08-10 03:10] LABS: BLOOD UREA NITROGEN,BUN 9 mg/dL (7.0-18.0); CHLORIDE,CL 105 mmol/L (98-107); GLUCOSE RANDOM 133 mg/dL (74-106); LIPASE 450 U/L (73-393); POTASSIUM,K 3.8 mmol/L (3.5-5.1); SODIUM,NA 141 mmol/L (136-145)
[2021-08-10 03:40] VITALS: BP 105/58; PULSE 84
== END 2021-08-10 03:48 | disposition home or self-care (01) ==
LOC: MW.ED 02:17
DX: K29.70 Gastritis, unspecified, without bleeding (principal); K85.90 Acute pancreatitis without necrosis or infection, unspecified
CPT/HCPCS: 36415; 71045; 80053; 81003; 83690; 84703; 85025; 96361; 96374; 96375; 99284; C9113; J1170; J2405; J3490; J7030

== ENCOUNTER 2021-11-15 01:46 | Emergency (ER) | payer BC ==
[2021-11-15] MEDS ORDERED: Sodium Chloride 0.9% 10 ML Syringe FLUSH PRN (02:34)
[2021-11-15] MEDS ORDERED: Sodium Chloride 0.9% 1,000 ML IV ONE (02:34)
[2021-11-15] MEDS ORDERED: Sodium Chloride 0.9% 2.5 ML Syringe FLUSH PRN (02:34)
[2021-11-15] MEDS ORDERED: Ondansetron 4 MG/2 ML SDV IVPUSH ONE ×2 (03:21→05:00)
[2021-11-15] MEDS ORDERED: fentaNYL 50 MCG/ML SDV IVPUSH ONE ×2 (03:21→05:00)
[2021-11-15] MEDS ORDERED: Iopamidol 755 MG/ML 500 ML Multipack Bottle IVPUSH ONE (04:11)
[2021-11-15] MEDS ORDERED: Diatrizoate Meglumine/Diatrizoate Sodium 37% 30 ML Bottle PO ONE (04:30)
[2021-11-15 04:32] LABS: CARBON DIOXIDE,CO2 21.2 mmol/L (21.0-32.0); POTASSIUM,K 3.3 mmol/L (3.5-5.1)
[2021-11-15 17:03] VITALS: BP 104/57; PULSE 68
== END 2021-11-15 09:01 | disposition home or self-care (01) ==
LOC: MW.ED 01:46
DX: K80.20 Calculus of gallbladder without cholecystitis without obstruction (principal); R74.01 Elevation of levels of liver transaminase levels; E10.9 Type 1 diabetes mellitus without complications; E66.9 Obesity, unspecified; Z86.16 Personal history of COVID-19; Z90.710 Acquired absence of both cervix and uterus; Z88.8 Allergy status to other drugs, medicaments and biological substances; Z79.4 Long term (current) use of insulin; Z79.899 Other long term (current) drug therapy; Z68.29 Body mass index [BMI] 29.0-29.9, adult
CPT/HCPCS: 36415; 74177; 76705; 80053; 81003; 82947; 83690; 85025; 96361; 96374; 96375; 96376; 99284; J2405; J3010; J3490; J7030; Q9963; Q9967

== ENCOUNTER 2022-01-06 07:00 | Day surgery (SDC) | payer BC ==
[2022-01-06] MEDS ORDERED: fentaNYL 250 MCG/5 ML SDV ONE ×2 (07:23→09:12)
[2022-01-06] MEDS ORDERED: Propofol 200 MG/20 ML SDV ONE (07:23)
[2022-01-06] MEDS ORDERED: Ropivacaine 0.5% 5 MG/ML 30 ML SDV ONE (07:27)
[2022-01-06] MEDS ORDERED: fentaNYL 100 MCG/2 ML SDV ONE (07:33)
[2022-01-06] MEDS ORDERED: Bupivacaine 0.5% 30 ML SDV ONE (07:39)
[2022-01-06] MEDS ORDERED: Lactated Ringers 1,000 ML IV SCH (08:30)
[2022-01-06] MEDS ORDERED: Metoclopramide 10 MG/2 ML SDV IVPUSH PRN (08:46)
[2022-01-06] MEDS ORDERED: HYDROmorphone 1 MG/ML Syringe IVPUSH PRN (08:46)
[2022-01-06] MEDS ORDERED: Naloxone 0.4 MG/ML SDV IVPUSH PRN (08:46)
[2022-01-06] MEDS ORDERED: fentaNYL 50 MCG/ML SDV IVPUSH PRN (08:46)
[2022-01-06] MEDS ORDERED: Ondansetron 4 MG/2 ML SDV IVPUSH PRN (08:46)
[2022-01-06] MEDS ORDERED: Albuterol 0.083% 2.5 MG/3 ML Neb Soln NEB PRN (08:46)
[2022-01-06] MEDS ORDERED: Ketamine 500 mg/10 ML MDV ONE (09:05)
[2022-01-06] MEDS ORDERED: Famotidine 20 MG/2 ML SDV ONE (09:22)
[2022-01-06] MEDS ORDERED: Ketorolac 30 MG/ML SDV ONE (10:04)
[2022-01-06] MEDS ORDERED: Glycopyrrolate 0.2 MG/ML SDV ONE (10:04)
[2022-01-06] MEDS ORDERED: Rocuronium Bromide 50 MG/5 ML Syringe ONE (10:04)
[2022-01-06] MEDS ORDERED: Sugammadex Sodium 200 MG/2 ML VIAL ONE (10:04)
[2022-01-06] MEDS ORDERED: Dexamethasone 4 MG/ML 5 ML MDV ONE (10:04)
[2022-01-06] MEDS ORDERED: Ondansetron 4 MG/2 ML SDV ONE (10:04)
[2022-01-06] MEDS ORDERED: Dexmedetomidine 200 MCG/2 ML SDV ONE (10:07)
[2022-01-06] MEDS ORDERED: propofoL 100 ML ONE (10:40)
[2022-01-06 14:03] VITALS: BP 107/49; PULSE 71
== END 2022-01-06 13:45 | disposition home or self-care (01) ==
LOC: MW.SDS 07:00
PROVIDERS: ATTEND Surgery
DX: K80.20 Calculus of gallbladder without cholecystitis without obstruction (principal); K43.2 Incisional hernia without obstruction or gangrene; K80.10 Calculus of gallbladder with chronic cholecystitis without obstruction; F41.9 Anxiety disorder, unspecified; F32.A Depression, unspecified; E11.9 Type 2 diabetes mellitus without complications; E66.9 Obesity, unspecified; K76.0 Fatty (change of) liver, not elsewhere classified; Z68.30 Body mass index [BMI] 30.0-30.9, adult; Z90.49 Acquired absence of other specified parts of digestive tract; Z90.710 Acquired absence of both cervix and uterus; Z86.16 Personal history of COVID-19; Z88.8 Allergy status to other drugs, medicaments and biological substances; Z79.4 Long term (current) use of insulin; Z79.899 Other long term (current) drug therapy
CPT/HCPCS: 47562; J0131; J0690; J1100; J1170; J1885; J2405; J2704; J2795; J3010; J3490; J7030; J7120; 00790; 64488

== ENCOUNTER 2022-07-05 17:21 | Emergency (ER) | payer BC ==
[2022-07-05] MEDS ORDERED: Sodium Chloride 0.9% 1,000 ML IV ONE ×2 (18:19→19:01)
[2022-07-05] MEDS ORDERED: Acetaminophen 500 MG Tab PO ONE (19:00)
[2022-07-05] MEDS ORDERED: Ketorolac 30 MG/ML SDV IVPUSH ONE (19:00)
[2022-07-05 19:02] LABS: CORONAVIRUS COVID-19 NAA NEGATIVE (NEGATIVE); INFLUENZA A NAA NEGATIVE (NEGATIVE); INFLUENZA B NAA NEGATIVE (NEGATIVE)
[2022-07-05] MEDS ORDERED: cefTRIAXone 1 GM in Sodium Chloride 0.9% 50 ML IV ONE (19:32)
[2022-07-05 19:40] LABS: CARBON DIOXIDE,CO2 21.8 mmol/L (21.0-32.0); POTASSIUM,K 3.5 mmol/L (3.5-5.1)
[2022-07-05] MEDS ORDERED: Iopamidol 755 MG/ML 500 ML Multipack Bottle IVPUSH STA (22:01)
[2022-07-05] MEDS ORDERED: Ondansetron 4 MG/2 ML SDV IVPUSH ONE (22:10)
[2022-07-05 23:44] VITALS: BP 168/94; PULSE 68
== END 2022-07-05 23:42 | disposition home or self-care (01) ==
LOC: MW.ED 17:21
DX: N39.0 Urinary tract infection, site not specified (principal); E10.9 Type 1 diabetes mellitus without complications; E66.9 Obesity, unspecified; Z68.25 Body mass index [BMI] 25.0-25.9, adult; Z88.8 Allergy status to other drugs, medicaments and biological substances; Z86.16 Personal history of COVID-19
CPT/HCPCS: 0240U; 36415; 71275; 80053; 80305; 81001; 81025; 82550; 83605; 85025; 85379; 87040; 87086; 93005; 93971; 96361; 96365; 96375; 99284; A9270; J0696; J1885; J2405; J3490; J7030; Q9967; 93010

== ENCOUNTER 2022-07-28 05:58 | Emergency (ER) | payer BC ==
[2022-07-28] MEDS ORDERED: Morphine 4 MG/ML Syringe IVPUSH ONE (06:17)
[2022-07-28] MEDS ORDERED: Ketorolac 30 MG/ML SDV IVPUSH ONE (06:17)
[2022-07-28] MEDS ORDERED: Ondansetron 4 MG/2 ML SDV IVPUSH ONE (06:17)
[2022-07-28] MEDS ORDERED: Sodium Chloride 0.9% 1,000 ML IV ONE (06:17)
[2022-07-28 06:24] LABS: APPEARANCE,URINE CLOUDY; COLOR,URINE ORANGE; GLUCOSE,URINE NEGATIVE (NEGATIVE); KETONES,URINE NEGATIVE (NEGATIVE); LEUKOCYTE ESTERASE,URINE NEGATIVE (NEGATIVE); NITRITE,URINE POSITIVE (NEGATIVE); OCCULT BLOOD,URINE LARGE (NEGATIVE); PROTEIN,URINE 100 mg/dL (NEGATIVE)
[2022-07-28 06:26] LABS: BILIRUBIN,URINE SMALL (NEGATIVE)
[2022-07-28 06:32] LABS: BACTERIA,URINE FEW (NEGATIVE); CALCIUM OXALATE CRYSTALS,URINE FEW (NEGATIVE); EPITHELIAL CELLS,URINE OCCASIONAL (NONE-FEW); HYALINE CASTS,URINE OCCASIONAL (0-2/LPF); RBC,URINE >100 (0-2/HPF); SQUAMOUS EPITHELIAL CELLS,UR OCCASIONAL; WBC,URINE 0-5 (0-5/HPF)
[2022-07-28 06:33] LABS: MUCUS,URINE FEW (NONE-MOD)
[2022-07-28 06:39] LABS: BASOPHILS PERCENT AUTO 0.4 % (0.0-1.5); EOSINOPHILS ABSOLUTE AUTO 0.1 K/uL (0.0-0.7); EOSINOPHILS PERCENT AUTO 0.9 % (0.0-7.0); HEMATOCRIT 39.2 % (36.0-46.0); HEMOGLOBIN 13.7 g/dL (12.0-16.0); LYMPHOCYTES ABSOLUTE AUTO 3.1 K/uL (0.6-2.4); LYMPHOCYTES PERCENT AUTO 45.6 % (16.0-40.0); MEAN CORPUSCULAR HEMOGLOBIN 31.2 pg (27.0-32.0); MEAN CORPUSCULAR HGB CONC 34.9 g/dL (31.0-37.0); MEAN CORPUSCULAR VOLUME 89.3 fL (80.0-98.0); MONOCYTES ABSOLUTE AUTO 0.4 K/uL (0.0-0.8); NEUTROPHILS ABSOLUTE AUTO 3.2 K/uL (1.4-5.7); NEUTROPHILS PERCENT AUTO 47.1 % (48.0-80.0); PLATELET COUNT,PLT 292 K/uL (150-400); RED BLOOD CELL COUNT 4.39 M/uL (4.30-5.90); WHITE BLOOD CELL COUNT,WBC 6.87 K/uL (4.0-11.0)
[2022-07-28 07:06] LABS: A/G RATIO 1.2 (0.9-1.6); ALBUMIN 3.9 g/dL (3.4-5.0); BILIRUBIN TOTAL 0.5 mg/dL (0.2-1.0); CALCIUM 8.8 mg/dL (8.5-10.1); CARBON DIOXIDE,CO2 24.4 mmol/L (21.0-32.0); EST CRCL DRUG DOSING (CG) 85.19 mL/min; POTASSIUM,K 3.3 mmol/L (3.5-5.1); PROTEIN TOTAL,TP 7.1 g/dL (6.4-8.2)
[2022-07-28] MEDS ORDERED: Morphine 15 MG Tab PO STA (08:12)
[2022-07-28] MEDS ORDERED: Ondansetron 4 MG Tab.DIS PO ONE (08:13)
[2022-07-28] MEDS ORDERED: Nitrofurantoin Monohydrate/Macrocrystalline 100 MG Cap PO ONE (08:19)
[2022-07-28 09:24] VITALS: BP 116/66; PULSE 77
== END 2022-07-28 09:23 | disposition home or self-care (01) ==
LOC: MW.ED 05:58
DX: N20.0 Calculus of kidney (principal); E10.9 Type 1 diabetes mellitus without complications; E66.9 Obesity, unspecified; Z68.24 Body mass index [BMI] 24.0-24.9, adult; Z86.16 Personal history of COVID-19; Z88.8 Allergy status to other drugs, medicaments and biological substances; Z79.899 Other long term (current) drug therapy; Z90.710 Acquired absence of both cervix and uterus; Z98.890 Other specified postprocedural states
CPT/HCPCS: 36415; 74176; 80053; 81001; 81025; 83690; 85025; 87086; 96374; 96375; 99284; A9270; J1885; J2270; J2405; J7030

== ENCOUNTER 2023-01-15 12:31 | Emergency (ER) | payer BC ==
[2023-01-15] MEDS ORDERED: Sodium Chloride 0.9% 1,000 ML IV ONE ×2 (12:47→12:48)
[2023-01-15] MEDS ORDERED: Ondansetron 4 MG/2 ML SDV IVPUSH ONE (12:48)
[2023-01-15] MEDS ORDERED: Ketorolac 30 MG/ML SDV IVPUSH ONE (12:48)
[2023-01-15 13:26] LABS: BASOPHILS ABSOLUTE AUTO 0.06 K/uL (0.00-0.20); EOSINOPHILS ABSOLUTE AUTO 0.07 K/uL (0.00-0.45); EOSINOPHILS PERCENT AUTO 1.2 % (0.0-6.0); HEMATOCRIT 37.2 % (37.0-47.0); HEMOGLOBIN 13.3 g/dL (12.0-16.0); IMMATURE GRAN ABSOLUTE AUTO 0.01 K/uL (0.00-0.05); IMMATURE GRAN PERCENT AUTO 0.2 % (0.0-0.4); LYMPHOCYTES ABSOLUTE AUTO 1.89 K/uL (1.00-4.80); LYMPHOCYTES PERCENT AUTO 31.6 % (24.0-44.0); MEAN CORPUSCULAR HEMOGLOBIN 31.2 pg (28.0-32.0); MEAN CORPUSCULAR HGB CONC 35.8 g/dL (32.0-36.0); MEAN CORPUSCULAR VOLUME 87.3 fL (83.0-99.0); MONOCYTES ABSOLUTE AUTO 0.39 K/uL (0.00-0.80); MONOCYTES PERCENT AUTO 6.5 % (0.0-8.0); NEUTROPHILS ABSOLUTE AUTO 3.56 K/uL (1.80-7.70); NEUTROPHILS PERCENT AUTO 59.5 % (41.0-71.0); PLATELET COUNT,PLT 294 K/uL (150-400); RED BLOOD CELL COUNT 4.26 M/uL (4.10-5.30); WHITE BLOOD CELL COUNT,WBC 5.98 K/uL (3.9-11.3)
[2023-01-15 13:51] LABS: A/G RATIO 1.2 (0.9-1.6); ALBUMIN 3.8 g/dL (3.4-5.0); BILIRUBIN TOTAL 0.5 mg/dL (0.2-1.0); CALCIUM 8.8 mg/dL (8.5-10.1); CARBON DIOXIDE,CO2 23.5 mmol/L (21.0-32.0); CREATININE 0.9 mg/dL (0.6-1.0); EST CRCL DRUG DOSING (CG) 93.78 mL/min; MAGNESIUM 1.5 mg/dL (1.8-2.4); POTASSIUM,K 3.8 mmol/L (3.5-5.1); PROTEIN TOTAL,TP 7.1 g/dL (6.4-8.2)
[2023-01-15 13:53] LABS: LACTIC ACID 1.9 mmol/L (0.4-2.0)
[2023-01-15 13:54] LABS: APPEARANCE,URINE CLEAR; BILIRUBIN,URINE NEGATIVE (NEGATIVE); GLUCOSE,URINE NEGATIVE (NEGATIVE); KETONES,URINE NEGATIVE (NEGATIVE); LEUKOCYTE ESTERASE,URINE NEGATIVE (NEGATIVE); NITRITE,URINE NEGATIVE (NEGATIVE); OCCULT BLOOD,URINE NEGATIVE (NEGATIVE); PH,URINE 5.5 (5.0-8.0); PROTEIN,URINE NEGATIVE (NEGATIVE); UROBILINOGEN,URINE 0.2 EU/dL (<2.0)
[2023-01-15 13:57] LABS: COLOR,URINE DARK YELLOW
[2023-01-15 14:07] LABS: CORONAVIRUS COVID-19 NAA NEGATIVE (NEGATIVE); INFLUENZA A NAA NEGATIVE (NEGATIVE); INFLUENZA B NAA NEGATIVE (NEGATIVE)
[2023-01-15 14:41] VITALS: BP 111/75; PULSE 72
== END 2023-01-15 14:42 | disposition home or self-care (01) ==
LOC: MW.ED 12:31
DX: K85.90 Acute pancreatitis without necrosis or infection, unspecified (principal); E10.9 Type 1 diabetes mellitus without complications; Z86.16 Personal history of COVID-19; Z88.8 Allergy status to other drugs, medicaments and biological substances; Z79.899 Other long term (current) drug therapy; Z20.822 Contact with and (suspected) exposure to COVID-19
CPT/HCPCS: 0240U; 36415; 71045; 80053; 81003; 82009; 83605; 83690; 83735; 84703; 85025; 87651; 96361; 96374; 96375; 99284; J1885; J2405; J7030

== ENCOUNTER 2023-11-16 07:48 | Emergency (ER) | payer BC ==
[2023-11-16] MEDS ORDERED: Sodium Chloride 0.9% 10 ML Syringe FLUSH PRN (08:00)
[2023-11-16] MEDS ORDERED: Sodium Chloride 0.9% 2.5 ML Syringe FLUSH PRN (08:00)
[2023-11-16] MEDS: Ondansetron 4 MG/2 ML SDV IVPUSH ONE (08:34)
[2023-11-16] MEDS: fentaNYL 50 MCG/ML SDV IVPUSH ONE (08:34)
[2023-11-16] MEDS: Sodium Chloride 0.9% 1,000 ML IV ONE ×2 (08:34→12:00)
[2023-11-16 08:44] LABS: APPEARANCE,URINE CLOUDY; BILIRUBIN,URINE NEGATIVE (NEGATIVE); COLOR,URINE YELLOW; GLUCOSE,URINE NEGATIVE (NEGATIVE); KETONES,URINE NEGATIVE (NEGATIVE); LEUKOCYTE ESTERASE,URINE NEGATIVE (NEGATIVE); NITRITE,URINE NEGATIVE (NEGATIVE); OCCULT BLOOD,URINE LARGE (NEGATIVE); PH,URINE 7.5 (5.0-8.0); PROTEIN,URINE NEGATIVE (NEGATIVE); UROBILINOGEN,URINE 0.2 EU/dL (<2.0)
[2023-11-16 08:45] LABS: BASOPHILS ABSOLUTE AUTO 0.08 K/uL (0.00-0.20); BASOPHILS PERCENT AUTO 1.3 % (0.0-1.0); EOSINOPHILS ABSOLUTE AUTO 0.03 K/uL (0.00-0.45); EOSINOPHILS PERCENT AUTO 0.5 % (0.0-6.0); HEMATOCRIT 39.6 % (37.0-47.0); HEMOGLOBIN 14.4 g/dL (12.0-16.0); IMMATURE GRAN ABSOLUTE AUTO 0.01 K/uL (0.00-0.05); IMMATURE GRAN PERCENT AUTO 0.2 % (0.0-0.4); LYMPHOCYTES ABSOLUTE AUTO 3.69 K/uL (1.00-4.80); LYMPHOCYTES PERCENT AUTO 57.8 % (24.0-44.0); MEAN CORPUSCULAR HEMOGLOBIN 30.9 pg (28.0-32.0); MEAN CORPUSCULAR HGB CONC 36.4 g/dL (32.0-36.0); MEAN PLATELET VOLUME 8.7 fL (9.4-12.3); MONOCYTES ABSOLUTE AUTO 0.34 K/uL (0.00-0.80); MONOCYTES PERCENT AUTO 5.3 % (0.0-8.0); NEUTROPHILS ABSOLUTE AUTO 2.23 K/uL (1.80-7.70); NEUTROPHILS PERCENT AUTO 34.9 % (41.0-71.0); PLATELET COUNT,PLT 338 K/uL (150-400); RED BLOOD CELL COUNT 4.66 M/uL (4.10-5.30); WHITE BLOOD CELL COUNT,WBC 6.38 K/uL (3.9-11.3)
[2023-11-16 08:58] LABS: RBC,URINE TOO NUMEROUS TO CT (0-2/HPF)
[2023-11-16 08:59] LABS: BACTERIA,URINE FEW (NEGATIVE); EPITHELIAL CELLS,URINE FEW (NONE-FEW); WBC,URINE 0-2 (0-5/HPF)
[2023-11-16] MEDS: HYDROmorphone 1 MG/ML Syringe IVPUSH ONE ×2 (09:04→10:40)
[2023-11-16 09:17] LABS: LACTIC ACID 1.8 mmol/L (0.4-2.0)
[2023-11-16 09:18] LABS: A/G RATIO 1.3 (0.9-1.6); ALANINE AMINOTRANSFERASE,ALT 44 IU/L (14-63); ALKALINE PHOSPHATASE 113 U/L (46-116); ASPARTATE AMNIOTRANSFERASE,AST 19 IU/L (15-37); BILIRUBIN TOTAL 0.6 mg/dL (0.2-1.0); BLOOD UREA NITROGEN,BUN 11 mg/dL (7.0-18.0); CALCIUM 9.3 mg/dL (8.5-10.1); CARBON DIOXIDE,CO2 20.2 mmol/L (21.0-32.0); CHLORIDE,CL 106 mmol/L (98-107); CREATININE 0.9 mg/dL (0.6-1.0); GLUCOSE RANDOM 94 mg/dL (74-106); LIPASE 101 U/L (16-77); MAGNESIUM 1.9 mg/dL (1.8-2.4); POTASSIUM,K 3.8 mmol/L (3.5-5.1); PROTEIN TOTAL,TP 7.2 g/dL (6.4-8.2); SODIUM,NA 139 mmol/L (136-145)
[2023-11-16 09:19] LABS: ESTIMATED GFR 87 mL/min (>60)
[2023-11-16] MEDS: Iopamidol 755 MG/ML 500 ML Multipack Bottle IVPUSH STA (10:04)
[2023-11-16] MEDS: Tamsulosin 0.4 MG Cap.ER PO ONE (10:40)
[2023-11-16] MEDS: Ketorolac 30 MG/ML SDV IVPUSH ONE (10:40)
[2023-11-16 13:20] VITALS: BP 99/56; PULSE 79
== END 2023-11-16 13:19 | disposition home or self-care (01) ==
LOC: MW.ED 07:48
DX: N13.2 Hydronephrosis with renal and ureteral calculous obstruction (principal); E11.9 Type 2 diabetes mellitus without complications; Z90.49 Acquired absence of other specified parts of digestive tract; Z90.710 Acquired absence of both cervix and uterus; Z79.899 Other long term (current) drug therapy; Z88.8 Allergy status to other drugs, medicaments and biological substances; Z75.8 Other problems related to medical facilities and other health care; Z79.84 Long term (current) use of oral hypoglycemic drugs
CPT/HCPCS: 36415; 74177; 80053; 81001; 83605; 83690; 83735; 85025; 96361; 96374; 96375; 96376; 99284; A9270; J1170; J1885; J2405; J3010; J7030; Q9967

== ENCOUNTER 2023-12-27 04:15 | Emergency (ER) | payer BC ==
[2023-12-27] MEDS: Ondansetron 4 MG/2 ML SDV IVPUSH ONE (04:36)
[2023-12-27] MEDS: Ketorolac 30 MG/ML SDV IVPUSH ONE (04:37)
[2023-12-27 04:38] LABS: BASOPHILS ABSOLUTE AUTO 0.13 K/uL (0.00-0.20); BASOPHILS PERCENT AUTO 1.4 % (0.0-1.0); EOSINOPHILS PERCENT AUTO 2.2 % (0.0-6.0); HEMATOCRIT 40.1 % (37.0-47.0); HEMOGLOBIN 13.8 g/dL (12.0-16.0); IMMATURE GRAN ABSOLUTE AUTO 0.02 K/uL (0.00-0.05); IMMATURE GRAN PERCENT AUTO 0.2 % (0.0-0.4); LYMPHOCYTES ABSOLUTE AUTO 4.37 K/uL (1.00-4.80); MEAN CORPUSCULAR HEMOGLOBIN 30.5 pg (28.0-32.0); MEAN CORPUSCULAR HGB CONC 34.4 g/dL (32.0-36.0); MEAN CORPUSCULAR VOLUME 88.7 fL (83.0-99.0); MEAN PLATELET VOLUME 8.7 fL (9.4-12.3); MONOCYTES ABSOLUTE AUTO 0.57 K/uL (0.00-0.80); MONOCYTES PERCENT AUTO 6.1 % (0.0-8.0); NEUTROPHILS PERCENT AUTO 43.1 % (41.0-71.0); PLATELET COUNT,PLT 327 K/uL (150-400); RED BLOOD CELL COUNT 4.52 M/uL (4.10-5.30); WHITE BLOOD CELL COUNT,WBC 9.29 K/uL (3.9-11.3)
[2023-12-27 04:52] LABS: GLUCOSE,URINE NEGATIVE (NEGATIVE); KETONES,URINE NEGATIVE (NEGATIVE); LEUKOCYTE ESTERASE,URINE MODERATE (NEGATIVE); NITRITE,URINE POSITIVE (NEGATIVE); OCCULT BLOOD,URINE LARGE (NEGATIVE); PH,URINE 5.5 (5.0-8.0); PROTEIN,URINE 100 mg/dL (NEGATIVE); UROBILINOGEN,URINE 0.2 EU/dL (<2.0)
[2023-12-27 04:54] LABS: APPEARANCE,URINE CLOUDY; BILIRUBIN,URINE SMALL (NEGATIVE); COLOR,URINE DARK YELLOW
[2023-12-27 04:55] LABS: BACTERIA,URINE 1+ (NEGATIVE); EPITHELIAL CELLS,URINE RARE (NONE-FEW); RBC,URINE TOO NUMEROUS TO CT (0-2/HPF)
[2023-12-27 04:59] LABS: A/G RATIO 1.1 (0.9-1.6); BILIRUBIN TOTAL 0.5 mg/dL (0.2-1.0); CALCIUM 9.1 mg/dL (8.5-10.1); CREATININE 0.9 mg/dL (0.6-1.0); EST CRCL DRUG DOSING (CG) 92.91 mL/min; POTASSIUM,K 3.7 mmol/L (3.5-5.1); PROTEIN TOTAL,TP 7.6 g/dL (6.4-8.2)
[2023-12-27 05:15] VITALS: BP 114/61; PULSE 78
== END 2023-12-27 05:28 | disposition home or self-care (01) ==
LOC: MW.ED 04:15
DX: N20.0 Calculus of kidney (principal); N39.0 Urinary tract infection, site not specified; E11.9 Type 2 diabetes mellitus without complications; Z79.899 Other long term (current) drug therapy; Z79.84 Long term (current) use of oral hypoglycemic drugs; Z75.8 Other problems related to medical facilities and other health care
CPT/HCPCS: 36415; 74176; 80053; 81001; 85025; 96374; 96375; 99284; J1885; J2405

== ENCOUNTER 2024-05-03 09:32 | Emergency (ER) | payer SELFPAY ==
[2024-05-03] MEDS: Sodium Chloride 0.9% 1,000 ML IV ONE (10:28)
[2024-05-03] MEDS: Ondansetron 4 MG/2 ML SDV IVPUSH ONE (10:28)
[2024-05-03 10:35] LABS: BASOPHILS ABSOLUTE AUTO 0.04 K/uL (0.00-0.20); BASOPHILS PERCENT AUTO 0.6 % (0.0-1.0); EOSINOPHILS ABSOLUTE AUTO 0.04 K/uL (0.00-0.45); EOSINOPHILS PERCENT AUTO 0.6 % (0.0-6.0); HEMATOCRIT 39.2 % (37.0-47.0); HEMOGLOBIN 13.7 g/dL (12.0-16.0); IMMATURE GRAN ABSOLUTE AUTO 0.02 K/uL (0.00-0.05); IMMATURE GRAN PERCENT AUTO 0.3 % (0.0-0.4); LYMPHOCYTES ABSOLUTE AUTO 1.16 K/uL (1.00-4.80); LYMPHOCYTES PERCENT AUTO 16.4 % (24.0-44.0); MEAN CORPUSCULAR HEMOGLOBIN 30.6 pg (28.0-32.0); MEAN CORPUSCULAR HGB CONC 34.9 g/dL (32.0-36.0); MEAN CORPUSCULAR VOLUME 87.7 fL (83.0-99.0); MEAN PLATELET VOLUME 8.7 fL (9.4-12.3); MONOCYTES ABSOLUTE AUTO 0.35 K/uL (0.00-0.80); MONOCYTES PERCENT AUTO 4.9 % (0.0-8.0); NEUTROPHILS ABSOLUTE AUTO 5.47 K/uL (1.80-7.70); NEUTROPHILS PERCENT AUTO 77.2 % (41.0-71.0); PLATELET COUNT,PLT 275 K/uL (150-400); RED BLOOD CELL COUNT 4.47 M/uL (4.10-5.30); WHITE BLOOD CELL COUNT,WBC 7.08 K/uL (3.9-11.3)
[2024-05-03 11:07] LABS: A/G RATIO 1.1 (0.9-1.6); ALBUMIN 3.7 g/dL (3.4-5.0); BILIRUBIN TOTAL 0.7 mg/dL (0.2-1.0); CALCIUM 8.7 mg/dL (8.5-10.1); CARBON DIOXIDE,CO2 24.8 mmol/L (21.0-32.0); CREATININE 0.8 mg/dL (0.6-1.0); EST CRCL DRUG DOSING (CG) 104.53 mL/min; POTASSIUM,K 3.9 mmol/L (3.5-5.1); PROTEIN TOTAL,TP 7.2 g/dL (6.4-8.2)
[2024-05-03 13:20] VITALS: BP 111/65; PULSE 89
[2024-05-03] MEDS: Ondansetron 4 MG/2 ML SDV IVPUSH STA (13:26)
[2024-05-03] MEDS: Iopamidol 755 MG/ML 500 ML Multipack Bottle IVPUSH STA (14:04)
== END 2024-05-03 13:26 | disposition left against medical advice (07) ==
LOC: MW.ED 09:32
DX: R10.32 Left lower quadrant pain (principal); R07.9 Chest pain, unspecified; R06.00 Dyspnea, unspecified; E11.9 Type 2 diabetes mellitus without complications; Z75.8 Other problems related to medical facilities and other health care; Z88.8 Allergy status to other drugs, medicaments and biological substances; Z79.899 Other long term (current) drug therapy; Z90.49 Acquired absence of other specified parts of digestive tract; Z90.710 Acquired absence of both cervix and uterus
CPT/HCPCS: 36415; 71275; 74177; 80053; 83690; 84484; 84703; 85025; 87428; 93005; 96361; 96374; 99285; J2405; J7030; Q9967; 93010; 99283

== ENCOUNTER 2024-08-03 14:19 | Emergency (ER) | payer BC ==
[2024-08-03] MEDS ORDERED: Sodium Chloride 0.9% 2.5 ML Syringe FLUSH PRN (14:31)
[2024-08-03] MEDS ORDERED: Sodium Chloride 0.9% 10 ML Syringe FLUSH PRN (14:31)
[2024-08-03 14:58] LABS: BILIRUBIN,URINE NEGATIVE (NEGATIVE); COLOR,URINE YELLOW; GLUCOSE,URINE NEGATIVE (NEGATIVE); KETONES,URINE TRACE mg/dL (NEGATIVE); LEUKOCYTE ESTERASE,URINE NEGATIVE (NEGATIVE); NITRITE,URINE NEGATIVE (NEGATIVE); OCCULT BLOOD,URINE NEGATIVE (NEGATIVE); PH,URINE 5.5 (5.0-8.0); PROTEIN,URINE NEGATIVE (NEGATIVE); UROBILINOGEN,URINE 0.2 EU/dL (<2.0)
[2024-08-03 15:05] LABS: APPEARANCE,URINE HAZY
[2024-08-03 15:18] LABS: BASOPHILS ABSOLUTE AUTO 0.07 K/uL (0.00-0.20); BASOPHILS PERCENT AUTO 1.1 % (0.0-1.0); EOSINOPHILS ABSOLUTE AUTO 0.06 K/uL (0.00-0.45); EOSINOPHILS PERCENT AUTO 0.9 % (0.0-6.0); HEMATOCRIT 40.6 % (37.0-47.0); HEMOGLOBIN 14.3 g/dL (12.0-16.0); IMMATURE GRAN ABSOLUTE AUTO 0.01 K/uL (0.00-0.05); IMMATURE GRAN PERCENT AUTO 0.2 % (0.0-0.4); LYMPHOCYTES ABSOLUTE AUTO 2.46 K/uL (1.00-4.80); LYMPHOCYTES PERCENT AUTO 38.3 % (24.0-44.0); MEAN CORPUSCULAR HEMOGLOBIN 30.6 pg (28.0-32.0); MEAN CORPUSCULAR HGB CONC 35.2 g/dL (32.0-36.0); MEAN CORPUSCULAR VOLUME 86.8 fL (83.0-99.0); MEAN PLATELET VOLUME 8.8 fL (9.4-12.3); MONOCYTES ABSOLUTE AUTO 0.32 K/uL (0.00-0.80); NEUTROPHILS ABSOLUTE AUTO 3.51 K/uL (1.80-7.70); NEUTROPHILS PERCENT AUTO 54.5 % (41.0-71.0); PLATELET COUNT,PLT 302 K/uL (150-400); RED BLOOD CELL COUNT 4.68 M/uL (4.10-5.30); WHITE BLOOD CELL COUNT,WBC 6.43 K/uL (3.9-11.3)
[2024-08-03 15:39] LABS: A/G RATIO 1.2 (0.9-1.6); ALBUMIN 3.9 g/dL (3.4-5.0); BILIRUBIN TOTAL 0.5 mg/dL (0.2-1.0); CALCIUM 8.7 mg/dL (8.5-10.1); CARBON DIOXIDE,CO2 27.3 mmol/L (21.0-32.0); CREATININE 0.7 mg/dL (0.6-1.0); EST CRCL DRUG DOSING (CG) 123.61 mL/min; POTASSIUM,K 4.2 mmol/L (3.5-5.1); PROTEIN TOTAL,TP 7.2 g/dL (6.4-8.2)
[2024-08-03 17:32] VITALS: BP 107/64; PULSE 85
== END 2024-08-03 17:28 | disposition home or self-care (01) ==
LOC: MW.ED 14:19
DX: N20.0 Calculus of kidney (principal); R74.8 Abnormal levels of other serum enzymes; E11.9 Type 2 diabetes mellitus without complications; Z88.8 Allergy status to other drugs, medicaments and biological substances; Z91.041 Radiographic dye allergy status; Z79.899 Other long term (current) drug therapy; Z75.3 Unavailability and inaccessibility of health-care facilities
CPT/HCPCS: 36415; 74176; 74176-26; 80053; 81003; 81025; 83690; 85025; 99283; 99284